=== PATIENT | female | born 1945 | race Two or more races ===

== ENCOUNTER → 2017-01-25 | Outpatient (CLI) | payer OTHER | LOC: BHFA 11:00 | PROVIDERS: ATTEND Internal Medicine | DX: I10 Essential (primary) hypertension (principal) ==

== ENCOUNTER → 2017-02-17 | Outpatient (CLI) | payer OTHER | LOC: BHFA 09:15 | PROVIDERS: ATTEND Internal Medicine Cardiovascular Disease | DX: I42.9 Cardiomyopathy, unspecified (principal) ==

== ENCOUNTER 2017-04-08 17:12 | Inpatient (IN) | payer OTHER ==
--- NOTE | 2017-04-08 17:33 | CPEKG ---
Heart Rate: 71 RR Interval: 845 P-R Interval: 180 QRSD Interval: 90 QT Interval: 456 QTC Interval: 496 P [place]: 38 QRS [place]: 14 T Wave [place]: 75 EKG Severity - ABNORMAL ECG - EKG Impression: SINUS RHYTHM EKG Impression: ATRIAL PREMATURE COMPLEX EKG Impression: PROBABLE LEFT ATRIAL ABNORMALITY EKG Impression: LVH WITH SECONDARY REPOLARIZATION ABNORMALITY EKG Impression: BORDERLINE PROLONGED QT INTERVAL Electronically Signed By: Roman Vazquez 08-Apr-2017 23:01:21
--- NOTE | 2017-04-08 17:44 | EDPHY ---
H & P Stated Complaint: cp/fast hr sent from pc in private vehicle Source: Patient, Family, Director Emergency Exam Limitations: No limitations - Personal History Current Tetanus/Diphtheria Vaccine: Yes - Medical/Surgical History Hx Asthma: No Hx Chronic Respiratory Disease: No Hx Diabetes: Yes Hx Cardiac Disease: Yes Hx Renal Disease: No Hx Cirrhosis: No Hx Alcoholism: No Hx HIV/AIDS: No Hx Splenectomy or Spleen Trauma: No Other PMH: tachycardia/htn - Social History Smoking Status: Never smoked HPI/ROS: CHIEF COMPLAINT: Chest Pain HISTORY OF PRESENT ILLNESS: Patient complains of chest pain or shortness of breath. Also associated with intermittent palpitations. This started early last night. It has been mostly constant she says. It does wax and wane from mild to moderate. Worse when supine. Improved when sitting up. No change when walking slowly. She has not exerted herself P on this. It does not radiate. There is no nausea, vomiting or diaphoresis. No abdominal pain. No cough. Most comfortable position is sitting up and leaning forward. No fever or chills. No recent illness. She was seen by jewelry mold maker Dr. Hudson on Tuesday where they did not change anything, nor was she having any chest pain at that time. No recent travel or surgery. No history of venous thrombolic event. No lower extremity erythema edema or pain. No other associated complaints or modifying factors. All information obtained with the use of the [facility] [employer] foreign language teacher (Ashley). PRIOR CARDIAC WORKUP: Stress test 2010 which revealed aortic stenosis and normal coronaries. REVIEW OF SYSTEMS: Ten systems reviewed and are negative unless otherwise noted in the HPI EXAMINATION: General Appearance: Alert, no distress Head: normocephalic, atraumatic Eyes: Pupils equal and round, no conjunctival pallor or injection ENT, Mouth: Mucous membranes moist uvula midline. Neck: Normal inspection, supple, non-tender Respiratory: Mild crackles at the base. No wheezing. No diminishment. No retractions or distress Cardiovascular: Regular rate and rhythm. Harsh holosystolic murmur. Pulses intact distally. Gastrointestinal: Abdomen is soft and nontender Back: non-tender, no bony abnormalities Neurological: GCS 15. A&O, nonfocal, normal gait. Strength symmetric in all 4 limbs. Skin: Warm and dry, no rash Extremities: Nontender, no pedal edema. No evidence of DVT. Psychiatric: Mood and affect normal DIFFERENTIAL DIAGNOSES: Including but not limited to in no particular order: Acute Chest Pain, ACS, Stable Angina, Pneumonia, PE, duodenitis, gastritis, esophagitis, GERD MDM: 5:43 p.m. Chest pain that started last night. It has been intermittently present. Vital signs are stable. EKG shows sinus rhythm with PACs, LVH and borderline prolonged QT. Minimal chest pain at this time prepped laboratory studies and chest x-ray are pending at this time. 6:20 p.m. D-dimer is elevated thus I have ordered CT angio of the chest. BNP is elevated I do not have a comparison for her. Plan for admission after CT scan of the chest and troponin returned EKG: Interpreted by Dr. Vazquez Sinus rhythm with PACs, LVH and borderline prolonged QT. No acute ischemia SUPERVISION: (Gary Burns) Constitutional: Initial Vital Signs Temperature (C) 37 C 04/08/17 17:18 Heart Rate 74 04/08/17 17:18 Respiratory Rate 20 04/08/17 17:18 Blood Pressure 182/77 H 04/08/17 17:18 O2 Sat (%) 94 04/08/17 17:18 O2 Delivery Mode Room Air Allergies/Adverse Reactions: No Known Allergies Allergy (Verified 04/08/17 17:16) Home Medications: Medication Instructions Recorded Aspirin EC [Aspirin EC 81 mg (*)] 81 mg PO DAILY 04/08/17 [place]/Supplements -Info Only 1 ea PO DAILY 04/08/17 Ibuprofen [Advil] 200 mg PO DAILY PRN 04/08/17 Metoprolol Succinate 150 mg PO DAILY 04/08/17 [place]-3 Ethyl Est-Lovaza [Lovaza 1 2 gm PO BID 04/08/17 gm (*)] Simvastatin 20 mg PO DAILY 04/08/17 Verapamil HCl [Verapamil ER] 240 mg PO DAILY 04/08/17 Medical Decision Making - Diagnostics EKG Interpretation: 12-lead EKG interpreted by me; official reading is in trace master. My interpretation is sinus rhythm rate 71, atrial premature complex, LVH, left atrial abnormality. (Roman Vazquez) Imaging Results: Imaging Impressions Chest/Thorax CTA 04/08/17 18:23 Impression: Inconclusive exam for pulmonary embolic disease, due to patient motion. 2. LAD coronary artery disease. 3. Suspicious for IHSS. Results called and discussed with Gary Burns, at 04/08/2017 7:25 pm General information for patients regarding this examination can be found at [email or web address]. If you have questions or comments about this report, please contact me at (hospital) or [phone] (cell). Other Provider: Discussed and reviewed case with PA; agree with plan for admission, trend troponins, manufacturing inspector. I am the secondary supervising physician. (Roman Vazquez) - Data Points Laboratory Results: Laboratory Results 04/08/17 17:38 04/08/17 17:38 Departure - Departure Disposition: [facility] Inpatient Acute Clinical Impression: Acute chest pain Condition: Good
[2017-04-08 17:54] LABS: % IMMATURE GRANULYOCYTES 0.3 % (0.0-1.1); ABSOLUTE IMMATURE GRANULOCYTES 0.02 10^3/uL (0.00-0.10); ADD DIFF? NO; ADD MORPH? NO; ADD SCAN? NO; ATYPICAL LYMPHOCYTE FLAG 10 (0-99); FRAGMENT RBC FLAG 0 (0-99); HEMATOCRIT 44.3 % (38.0-47.0); HEMOGLOBIN 15.3 g/dL (12.6-16.3); LEFT SHIFT FLG 0 (0-99); LIPEMIA HEMOLYSIS FLAG 90 (0-99); MEAN CELL HEMOGLOBIN 29.4 pg (27.9-34.1); MEAN CELL HEMOGLOBIN CONCENTR. 34.5 g/dL (32.4-36.7); MEAN CELL VOLUME 85.2 fL (81.5-99.8); MEAN PLATELET VOLUME 11.1 fL (8.7-11.7); PLATELET CLUMPS FLAG 0 (0-99); PLATELET COUNT 214 10^3/uL (150-400); RED CELL DISTRIBUTION WIDTH 14.6 % (11.5-15.2)
[2017-04-08 18:02] LABS: INR 1.04 (0.83-1.16); PROTIME(PATIENT) 13.5 SEC (12.0-15.0)
[2017-04-08 18:03] LABS: APTT 33.1 SEC (23.0-38.0)
[2017-04-08 18:07] LABS: ANION GAP 11 mEq/L (8-16); CALCIUM 9.6 mg/dL (8.5-10.4); CARBON DIOXIDE 24 mEq/l (22-31); CHLORIDE 106 mEq/L (97-110); CREATININE 0.6 mg/dL (0.6-1.0); GLOMERULAR FILTRATION RATE > 60; GLUCOSE 146 mg/dL (70-100); POTASSIUM 4.1 mEq/L (3.5-5.2); SODIUM 141 mEq/L (134-144)
[2017-04-08 18:18] LABS: TROPONIN I 0.016 ng/mL (0-0.034)
[2017-04-08] MEDS ORDERED: IOPAMIDOL (ISOVUE 370) 100 ML BTL IV ONE (18:43)
[2017-04-08] MEDS ORDERED: oxyCODONE IR 5 MG TAB PO PRN (23:22)
[2017-04-08] MEDS ORDERED: ACETAMINOPHEN 325 MG TAB PO PRN (23:22)
[2017-04-08] MEDS ORDERED: ONDANSETRON DISINTEGRATING 4 MG TAB PO PRN (23:22)
[2017-04-08] MEDS ORDERED: ONDANSETRON 4 MG/2 ML VIAL IVP PRN (23:22)
[2017-04-08] MEDS ORDERED: hydrALAZINE 20 MG/ML VIAL IVP PRN (23:24)
--- NOTE | 2017-04-09 00:24 | PDGENHP ---
History and Physical - Chief Complaint chest pain - History of Present Illness 71 yo F with PMH of VHD (severe , moderate MR) as well as HOCM presenting with chest pain. She notes that this most recent episode began last night while she was doing housework. It was substernal and severe, associated with SOB, and improved with rest. It returned again this morning and was worse than last night. She has had similar chest pain in the past, and previously had a heart cath that showed no significant CAD at that time in 2010. She thinks she has been typically having episodes of chest pain about every two months, but previously not this severe and not lasting as long. She notes that she has been treated for tachycardia by Dr. Hudson, she is unable to give me much more details about that however and unfortunately no records found in [place] or [facility] either. She has not had other associated sxs such as dizzyness or near syncope, no fevers or chills, no swelling or pain in the legs. She has seen Dr. Hudson recently, but at that time she did not mention these issues and was not having chest pain then. History Information - Allergies/Home Medication List Allergies/Adverse Reactions: No Known Allergies Allergy (Verified 04/08/17 17:16) Home Medications: Aspirin EC [Aspirin EC 81 mg (*)] 81 mg PO DAILY 04/08/17 [Last Taken 04/07/17] [place]/Supplements -Info Only 1 ea PO DAILY 04/08/17 [Last Taken Unknown] Ibuprofen [Advil] 200 mg PO DAILY PRN 04/08/17 [Last Taken Unknown] Metoprolol Succinate 150 mg PO DAILY 04/08/17 [Last Taken 04/08/17] [place]-3 Ethyl Est-Lovaza [Lovaza 1 gm (*)] 2 gm PO BID 04/08/17 [Last Taken Unknown] Simvastatin 20 mg PO DAILY 04/08/17 [Last Taken Unknown] Verapamil HCl [Verapamil ER] 240 mg PO DAILY 04/08/17 [Last Taken 04/08/17] I have personally reviewed and updated: family history, medical history, social history, surgical history - Past Medical History cancer (breast), cataracts, diabetes type 2 (now off of medications/diet controlled), hypertension, hyperlipidemia Additional medical history: obstructive hypertrophic CM. 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 C section. cataract surgery - Family History Positive for: CAD (mother in her 90s ) - Social History Smoking Status: Never smoked Alcohol Use: None Drug Use: None Additional social history: , 5 children, 9 grandchildren, originally from [facility] Review of Systems ROS: 10pt was reviewed & negative except for what was stated in HPI & below Physical Exam Temp Pulse Resp BP Pulse Ox 36.7 C 66 18 171/61 H 94 04/08/17 23:55 04/08/17 23:55 04/08/17 23:55 04/08/17 23:55 04/08/17 23:55 Constitutional: no apparent distress, appears nourished, obese Eyes: PERRL Ears, Nose, Mouth, Throat: moist mucous membranes, hearing normal Cardiovascular: regular rate and rhythym, systolic murmur, No edema Respiratory: no respiratory distress, no rales or rhonchi Gastrointestinal: normoactive bowel sounds, soft, non-tender abdomen Genitourinary: no bladder tenderness Skin: warm, normal color Musculoskeletal: full muscle strength, no muscle tenderness Neurologic: AAOx3 Psychiatric: interacting appropriately, not anxious, not encephalopathic Lab Data & Imaging Review 04/08/17 17:38 04/08/17 17:38 WBC 6.72 10^3/uL (3.80-9.50) 04/08/17 17:38 RBC 5.20 10^6/uL (4.18-5.33) 04/08/17 17:38 Hgb 15.3 g/dL (12.6-16.3) 04/08/17 17:38 Hct 44.3 % (38.0-47.0) 04/08/17 17:38 MCV 85.2 fL (81.5-99.8) 04/08/17 17:38 MCH 29.4 pg (27.9-34.1) 04/08/17 17:38 MCHC 34.5 g/dL (32.4-36.7) 04/08/17 17:38 RDW 14.6 % (11.5-15.2) 04/08/17 17:38 Plt Count 214 10^3/uL (150-400) 04/08/17 17:38 MPV 11.1 fL (8.7-11.7) 04/08/17 17:38 Neut % (Auto) 57.1 % (39.3-74.2) 04/08/17 17:38 Lymph % (Auto) 30.8 % (15.0-45.0) 04/08/17 17:38 [place] % (Auto) 9.2 % (4.5-13.0) 04/08/17 17:38 Eos % (Auto) 2.2 % (0.6-7.6) 04/08/17 17:38 Baso % (Auto) 0.4 % (0.3-1.7) 04/08/17 17:38 Nucleat RBC Rel Count 0.0 % (0.0-0.2) 04/08/17 17:38 Absolute Neuts (auto) 3.83 10^3/uL (1.70-6.50) 04/08/17 17:38 Absolute Lymphs (auto) 2.07 10^3/uL (1.00-3.00) 04/08/17 17:38 Absolute Monos (auto) 0.62 10^3/uL (0.30-0.80) 04/08/17 17:38 Absolute Eos (auto) 0.15 10^3/uL (0.03-0.40) 04/08/17 17:38 Absolute Basos (auto) 0.03 10^3/uL (0.02-0.10) 04/08/17 17:38 Absolute Nucleated RBC 0.00 10^3/uL (0-0.01) 04/08/17 17:38 Immature Gran % 0.3 % (0.0-1.1) 04/08/17 17:38 Immature Gran # 0.02 10^3/uL (0.00-0.10) 04/08/17 17:38 PT 13.5 SEC (12.0-15.0) 04/08/17 17:38 INR 1.04 (0.83-1.16) 04/08/17 17:38 APTT 33.1 SEC (23.0-38.0) 04/08/17 17:38 D-Dimer 1.18 ug/mLFEU (0.00-0.50) H 04/08/17 17:38 Sodium 141 mEq/L (134-144) 04/08/17 17:38 Potassium 4.1 mEq/L (3.5-5.2) 04/08/17 17:38 Chloride 106 mEq/L (97-110) 04/08/17 17:38 Carbon Dioxide 24 mEq/l (22-31) 04/08/17 17:38 Anion Gap 11 mEq/L (8-16) 04/08/17 17:38 BUN 20 mg/dL (7-23) 04/08/17 17:38 Creatinine 0.6 mg/dL (0.6-1.0) 04/08/17 17:38 Estimated GFR > 60 04/08/17 17:38 Glucose 146 mg/dL (70-100) H 04/08/17 17:38 Calcium 9.6 mg/dL (8.5-10.4) 04/08/17 17:38 Troponin I 0.016 ng/mL (0-0.034) 04/08/17 17:38 NT-Pro-B Natriuret Pep 1070 pg/mL (0-125) H 04/08/17 17:38 Lipase 158.0 IU/L (23-300) 04/08/17 17:38 Visualized and Interpreted Chest x-ray results: Yes Chest X-Ray results: other (airways disease, mild CM) Visualized and Interpreted imaging results: Yes Interpretation: CTA: no obvious PE--study limited by motion artifact. -- asymmetrical thickening of interventricular septum Visualized and Interpreted EKG results: Yes EKG additional interpertation: LVH with secondary repol abnormality--no old to compare Assessment & Plan Assessment: Acute chest pain (Acute) Aortic stenosis (Acute) 71 yo F with PMH of HOCM, severe subvalvular presenting with cp/sob/thomas # chest pain: patient given a history of increasing exertional chest pain concerning for unstable angina. Had similar sxs in the past and angio w/o significant CAD. ECG abnormal, but not clearly ischemic with underlying LVH. Will trend ecg/trops. Consult cardiology. Echo and stress test ordered for am, but would defer to cardiology if heart catheterization preferable to stress test given her hx. At this time, chest pain free. CTA limited study but no clear PE. # sob/thomas: with mild hypoxia, 91% on RA, and hx of HOCM as well as severe / mod MR. Does not appear grossly overloaded on exam. Echo ordered for am. # uncontrolled HTN: patient notes that bp has been running high at home as well , but states typically more in the 150s systolic range, will add prn hydralazine and trend. continue home medications of verapamil and metoprolol. # DM2: per patient she has been recently taken off of meds as now diet controlled, no recent A1c in our system and will order, last was 6.5 # severe /HOCM: as above, echo in am, cardiology consult # dispo: observation status, will likely need < 48 hours stay for eval/mgmt of above Patient new to my care. Old records reviewed and summarized as above. Further hx obtained from patients and grand daughter present at bedside. Care plan reviewed with ER doctor.
[2017-04-09 01:01] LABS: CHOLESTEROL 183 mg/dL (140-220); CHOLESTEROL/HDL RATIO 4.69 RATIO (1.00-4.44); HIGH DENSITY LIPOPROTEIN 39 mg/dL (40-85); LDL/HDL RATIO 2.77 RATIO (1.00-3.22); LOW DENSITY LIPOPROTEIN 108 mg/dL (80-100); NON-HIGH DENSITY LIPOPROTEIN 144 mg/dL (90-129); TRIGLYCERIDE 184 mg/dL (35-135); VERY LOW DENSITY LIPOPROTEINS 36 mg/dL (8-25)
[2017-04-09 01:12] LABS: TROPONIN I 0.115 ng/mL (0-0.034)
[2017-04-09] MEDS: ENOXAPARIN 80 MG/0.8 ML SYR SC SCH ×3 (02:50→21:53)
[2017-04-09] MEDS: METOPROLOL TARTRATE 100 MG TAB PO SCH ×2 (03:14→09:11)
[2017-04-09] MEDS ORDERED: METOPROLOL SUCCINATE XR 50 MG TAB PO SCH (09:00)
[2017-04-09] MEDS: ATORVASTATIN CALCIUM 10 MG TAB PO SCH (09:09)
[2017-04-09] MEDS: ASPIRIN EC 81 MG TAB PO SCH (09:09)
[2017-04-09] MEDS: VERAPAMIL ER 240 MG TAB PO SCH (09:09)
[2017-04-09] MEDS: OMEGA-3 ETHYL EST-LOVAZA 1 GM CAP PO SCH ×2 (09:13→21:51)
--- NOTE | 2017-04-09 10:14 | ECHO ---
[id number] + + [address] : : [place] [address] : : [phone] + + Adult Echocardiographic Report + -------+ :Name: MARIANNE RAMOS FStudy Date: 04/09/2017 08:07 AM : : Hospital Admission Number: [id number] Locati on: 208: :: 1945 Gender: Female Height: 62 in : :Age: 71 yrs Race: HL,PTNP,OTH Weight: 167 lb : :Reason For Study: Chest pain : : BSA: 1.8 meter s2 : :History: Cardiomyopathy : + -------+ MMode/2D Measurements \T\ Calculations IVSd: 1.7 cm LVIDd: 4.4 cm EDV(Teich): 89.3 ml Ao root diam: 2.6 cm LVPWd: 1.6 cm LA dimension: 5.0 cm Normal Measurement Values: + + :LVIDd (3.5-5.7cm) IVSd (0.6-1.1cm) LVPWd (0.6-1.1cm) Aortic Root (2.0-3.7cm)Left Atrium (1.5-4.0cm): :LV Vol(d) (76-115ml) LV Vol(s) (29-48ml) Ejec Fraction (50-65%)PV Brodie (0.6- 1.2m/s) TV Brodie (0.4-1.0m/s) : :MV E Brodie (0.8-1.0m/s)MV A Brodie (0.3-1.0m/s)LVOT Bro[place] (0.7-1.2m/s) Asc Ao Brodie ( 0.9-1.8m/s) : + + Doppler Measurements \T\ Calculations MV E max brodie: 90.5 cm/sec MV A max brodie: 116.5 cm/sec MV E/A: 0.78 Left Ventricle The left ventricle is normal in size. There is moderate to severe concentric left ventricular hypertrophy. Left ventricular systolic function is normal. There is Doppler evidence for diastolic dysfunction. Ejection Fraction = 70- 75%. No regional wall motion abnormalities noted. Right Ventricle The right ventricle is normal in size and function. Atria The left atrium is moderately dilated. Right atrial size is normal. Mitral Valve There is systolic anterior motion of the mitral valve. Severe LVOT gradient (103-196). There is no evidence of mitral valve prolapse. There is no mitral valve stenosis. There is mild mitral regurgitation. Tricuspid Valve Normal tricuspid valve. No tricuspid regurgitation. Aortic Valve The aortic valve opens well. There is mild aortic valve calcification. The aortic valve is trileaflet. There is no aortic stenosis. There is no aortic insufficiency. Pulmonic Valve The pulmonic valve is not well visualized. There is no pulmonic valvular regurgitation. Great Vessels The aortic root is normal size. Pericardium/Pleural There is no pericardial effusion. Conclusion A complete two-dimensional transthoracic echocardiogram was performed (2D, M-mode, Doppler and color flow Doppler). Previous echo 02/11 at [facility]. (1) Left ventricular systolic ejection fraction was normal (70%) - grossly normal wall motion (2) Moderate to severe left ventricular hypertrophy (3) Diastolic dysfunction was noted (4) Normal right ventricular size and function (5) Moderate left atrial dilation with normal right atrial dimensions (6) Mild mitral regurgitation (7) Trileaflet aortic valve with mild sclerosis, no stenosis, and no appreciable insufficiency (8) Grossly normal tricuspid valve (9) Poor visualization of the pulmonic valve (10) LVOT gradient was severe (up to 196 mm Hg). (11) In comparison to prior echocardiogram from 2010, the gradients have increased. Final Reading Physician: Jayjay Ellsworth signed on 04/09/2017 10:12 AM Ordering Physician: Kiana Luong Performed By: Mirian Christine RDCS
--- NOTE | 2017-04-09 11:09 | PDCARPN ---
Cardiology Progress Note Chief Complaint: chest pains Assessment/Plan: Assessment: Patient is a 71 y/o female, well known to [facility] (Dr. Esther Hudson and Dr. Igor Pleitez) with history of HOCM , DM, HTN, and HLP, who presented to [facility] with complaints of chest pains. Outpatient follow up with Dr. Igor Pleitez led to cessation of therapy on diuretics and uptitration of beta raphael therapy. Follow up with Dr. Esther Hudson about one month post med changes with patient reporting that she had been feeling very well. Compliance with these changes has been maintained. No syncope has been noted. No PND or orthopnea. Friend ( neighbor) was present in the room today to assist with translation (certified school manager with medical background). The question/statement that came up was a moderate degree of anxiety about pending travel to [place] was noted, and elevation in blood pressures might have precipitated some of the symptoms ( versus anxiety in general resulting in the symptoms noted). Either way, the patient is currently doing very well, and without active symptoms reported. Echocardiogram this morning with continued, progressive elevation to the LVOT gradients. Plan: (1) Would maintain current therapies with Lopressor at 100 mg twice per day and Calan SR at 240 mg per day (2) Statins to continue for history of HLP (3) ASA therapy to continue as at present (4) Would consider the addition of Ranexa 500 mg twice per day (as per the RHYME study with refractory symptoms in the setting of maximal therapy) (5) Would also arrange for outpatient follow up for further discussion about surgical options given the LVOT gradients noted today in house (6) Diuretics should be avoided given the diagnosis rendered (and the gradients appreciated) Subjective: No cardiovascular complaints were voiced today. Reviewed/Discussed With: family Time Spent With Patient: 20 minutes Objective: Vital Signs (8 Hrs) Temp Pulse Resp BP Pulse Ox 04/09/17 08:00 36.8 C 76 17 164/69 H 95 04/09/17 06:00 174/69 H 04/09/17 03:51 36.6 C 67 19 184/66 H 95 04/09/17 03:14 52 L Intake/Output (24 Hrs) 04/08/17 04/09/17 04/10/17 05:59 05:59 05:59 Other: Weight 75.9 kg Number of Voids Toilet 1 Result Diagrams: 04/08/17 17:38 04/08/17 17:38 Cardiac Labs: Cardiac Lab Results (72 Hrs) 04/09/17 04/08/17 03:46 23:47 Troponin I 0.191 H 0.115 H Telemetry: sinus rhythm with non specific ST/T wave changes noted Echocardiogram: normal LVEF was noted with ongoing, progressive LVH (HOCM). Gradients (at peak ) to nearly 200 mm Hg. - Physical Exam Constitutional: WDWN, healthy appearing, no apparent distress Eyes: PERRL, EOMI Ears, Nose, Mouth, Throat: moist mucous membranes Cardiovascular: regular rate and rhythm, no rubs, no gallops, systolic murmur Peripheral Pulses: 2+: dorsalis-pedis (R), dorsalis-pedis (L) Respiratory: clear to auscultate bilat, no crackles, no wheezes Gastrointestinal: normoactive bowel sounds Skin: no rashes, no edema Musculoskeletal: no muscular tenderness Neurologic: AAOx3, CN II-XII grossly intact Psychiatric: cooperative, interactive, following commands ICD10 Worksheet Patient Problems: Problems Problem Status Onset Acute chest pain Acute
--- NOTE | 2017-04-09 13:21 | HOSPPROG ---
Hospitalist Progress Note Assessment/Plan: 71-y/o F with long-standing HCM, normal cors on [facility] 2010, DANNY with MR, known LVOT gradient, mod LVH, in with cp. Previously has had similar episodes since 2010,but has worsening episodes in past 2 months. #. elevated troponin: cardiology has seen and feels it is related to worsening HCM and LVOT gradient no cp currently continue ASA and statin for med mgmt #. HCM: mod-severe LVH by echo today will resume home dosing of Metoprolol succinate add Ranexa per Dr. Cantrell's recommendations we reviewed need to follow up with Dr. Pleitez/Tristan to discuss myectomy as LVOT gradient now up to 196 mmHg #. cp: related to above #. DM: previously treated with Glyburide but that was stopped recently due to improved glycemic control #. Dispo: possible d/c in AM if BP controlled and no further cp Subjective: No cp. No dyspnea or abdominal pain. Objective: Vital Signs Temp Pulse Resp BP Pulse Ox 98.1 F 62 20 152/60 H 94 04/09/17 11:26 04/09/17 11:26 04/09/17 11:26 04/09/17 11:26 04/09/17 11:26 PT 13.5 SEC (12.0-15.0) 04/08/17 17:38 INR 1.04 (0.83-1.16) 04/08/17 17:38 - Physical Exam Constitutional: no apparent distress, appears nourished Eyes: anicteric sclera Ears, Nose, Mouth, Throat: moist mucous membranes, hearing normal Cardiovascular: regular rate and rhythym, no murmur, rub, or gallop Respiratory: no respiratory distress, no rales or rhonchi Gastrointestinal: normoactive bowel sounds, soft, non-tender abdomen Skin: warm, normal color Neurologic: AAOx3 Psychiatric: interacting appropriately, not anxious, other (SSO with engine buildup mechanic present) ICD10 Worksheet Patient Problems: Problems Problem Status Onset Acute chest pain Acute
[2017-04-09] MEDS: METOPROLOL SUCCINATE XR 50 MG TAB PO SCH ×2 (16:13→21:52)
[2017-04-09] MEDS: RANOLAZINE 500 MG TAB.ER PO SCH (21:50)
[2017-04-10 08:01] VITALS: BP 153/65; PULSE 60; RESP 18; TEMP 98.4; O2SAT 94
[2017-04-10] MEDS: OMEGA-3 ETHYL EST-LOVAZA 1 GM CAP PO SCH (08:55)
[2017-04-10] MEDS: VERAPAMIL ER 240 MG TAB PO SCH (08:55)
[2017-04-10] MEDS: RANOLAZINE 500 MG TAB.ER PO SCH (08:55)
[2017-04-10] MEDS: ASPIRIN EC 81 MG TAB PO SCH (08:56)
[2017-04-10] MEDS: ENOXAPARIN 80 MG/0.8 ML SYR SC SCH (08:56)
[2017-04-10] MEDS: ATORVASTATIN CALCIUM 10 MG TAB PO SCH (08:56)
[2017-04-10] MEDS: METOPROLOL SUCCINATE XR 50 MG TAB PO SCH (08:56)
--- NOTE | 2017-04-10 10:14 | PDCARPN ---
Cardiology Progress Note Chief Complaint: No complaints Assessment/Plan: Assessment: 04-10-17 Patient without cardiovascular complaints. No chest pains have been noted, and blood pressures are better controlled today. Ranexa was started (500 mg twice per day) last night, and to date has been tolerated well (only two doses rendered). Patient is dressed and ready to leave - she was told that she might be going home this morning. 04-09-17 Patient is a 71 y/o female, well known to [facility] (Dr. Esther Hudson and Dr. Igor Pleitez) with history of HOCM , DM, HTN, and HLP, who presented to [facility] with complaints of chest pains. Outpatient follow up with Dr. Igor Pleitez led to cessation of therapy on diuretics and uptitration of beta raphael therapy. Follow up with Dr. Esther Hudson about one month post med changes with patient reporting that she had been feeling very well. Compliance with these changes has been maintained. No syncope has been noted. No PND or orthopnea. Friend ( neighbor) was present in the room today to assist with translation (certified house wirer with medical background). The question/statement that came up was a moderate degree of anxiety about pending travel to [place] was noted, and elevation in blood pressures might have precipitated some of the symptoms ( versus anxiety in general resulting in the symptoms noted). Either way, the patient is currently doing very well, and without active symptoms reported. Echocardiogram this morning with continued, progressive elevation to the LVOT gradients. Plan: (1) Toprol XL at 150 mg per day to continue (2) Calan SR at 240 mg per day to control (3) Maintain newly added Ranexa (500 mg twice per day) with history of HOCM with max dose therapies of Toprol and Calan (4) ASA therapy should be continued (5) Outpatient follow up has been arranged, but is too long in the future with the ongoing symptoms - will communicate with [facility] in the morning to get this patient in for follow up this week (prefer Mon/) Subjective: No cardiovascular complaints Objective: Vital Signs (8 Hrs) Temp Pulse Resp BP Pulse Ox 04/10/17 08:00 36.9 C 60 18 153/65 H 94 04/10/17 04:00 36.7 C 66 14 150/70 H 96 Intake/Output (24 Hrs) 04/09/17 04/10/17 04/11/17 05:59 05:59 05:59 Intake Total 1240 Balance 1240 Intake: Oral (ml) 1240 Other: Number of Voids Toilet 2 Number of Stools Toilet 1 Result Diagrams: 04/08/17 17:38 04/08/17 17:38 Telemetry: patient is off tele this morning - Physical Exam Constitutional: WDWN, healthy appearing Eyes: PERRL Ears, Nose, Mouth, Throat: moist mucous membranes Cardiovascular: regular rate and rhythm, systolic murmur, No jugular vein distention Peripheral Pulses: 2+: dorsalis-pedis (R), dorsalis-pedis (L) Respiratory: clear to auscultate bilat, no crackles, no wheezes Gastrointestinal: normoactive bowel sounds Skin: no rashes, no edema Musculoskeletal: no muscular tenderness Neurologic: AAOx3, CN II-XII grossly intact Psychiatric: cooperative, interactive, following commands ICD10 Worksheet Patient Problems: Problems Problem Status Onset Acute chest pain Acute
[2017-04-11 01:44] LABS: HEMOGLOBIN A1C 6.6 % (4.0-6.0)
== END 2017-04-10 10:40 | disposition home or self-care (01) | DRG 313 ==
LOC: F2W 20:33 → OBSVTOIN 04-09 13:30
PROVIDERS: ADMIT Internal Medicine; ATTEND Internal Medicine
DX: R07.9 Chest pain, unspecified (principal); E11.9 Type 2 diabetes mellitus without complications; I10 Essential (primary) hypertension; E78.5 Hyperlipidemia, unspecified; Z82.49 Family history of ischemic heart disease and other diseases of the circulatory system; Z85.3 Personal history of malignant neoplasm of breast
CPT/HCPCS: G0378; J0360; J1650; Q9967

== ENCOUNTER 2017-04-26 11:37 | Observation (INO) | payer OTHER ==
[2017-04-26] MEDS ORDERED: ASPIRIN EC 325 MG TAB PO ONE ×2 (11:41→12:09)
[2017-04-26] MEDS ORDERED: diphenhydrAMINE 25 MG CAP PO ONE ×2 (11:41→12:09)
[2017-04-26] MEDS ORDERED: NS 1,000 ML IV ONE (11:41)
[2017-04-26] MEDS ORDERED: DIAZEPAM 5 MG TAB PO ONE (11:41)
[2017-04-26] MEDS ORDERED: FAMOTIDINE 20 MG TAB PO ONE (11:41)
--- NOTE | 2017-04-26 12:06 | CPEKG ---
Heart Rate: 65 RR Interval: 923 P-R Interval: 180 QRSD Interval: 88 QT Interval: 440 QTC Interval: 458 P [place]: 46 QRS [place]: 13 T Wave [place]: 25 EKG Severity - ABNORMAL ECG - EKG Impression: SINUS RHYTHM EKG Impression: LVH WITH SECONDARY REPOLARIZATION ABNORMALITY Electronically Signed By: Lauri Cantrell 28-Apr-2017 12:41:21
[2017-04-26] MEDS ORDERED: DIAZEPAM 5 MG TAB ONE (12:09)
[2017-04-26] MEDS ORDERED: FAMOTIDINE 20 MG TAB ONE (12:09)
[2017-04-26 12:40] LABS: % IMMATURE GRANULYOCYTES 0.1 % (0.0-1.1); ABSOLUTE IMMATURE GRANULOCYTES 0.01 10^3/uL (0.00-0.10); ADD DIFF? NO; ADD MORPH? NO; ADD SCAN? NO; ATYPICAL LYMPHOCYTE FLAG 0 (0-99); FRAGMENT RBC FLAG 0 (0-99); HEMATOCRIT 43.4 % (38.0-47.0); HEMOGLOBIN 14.9 g/dL (12.6-16.3); LEFT SHIFT FLG 0 (0-99); LIPEMIA HEMOLYSIS FLAG 90 (0-99); MEAN CELL HEMOGLOBIN CONCENTR. 34.3 g/dL (32.4-36.7); MEAN CELL VOLUME 87.3 fL (81.5-99.8); MEAN PLATELET VOLUME 10.4 fL (8.7-11.7); PLATELET CLUMPS FLAG 0 (0-99); PLATELET COUNT 199 10^3/uL (150-400); RED BLOOD CELL COUNT 4.97 10^6/uL (4.18-5.33); RED CELL DISTRIBUTION WIDTH 14.6 % (11.5-15.2)
[2017-04-26 12:51] LABS: INR 1.09 (0.83-1.16)
[2017-04-26 12:54] LABS: ALANINE AMINOTRANSFERASE 72 IU/L (9-52); ALBUMIN 4.7 g/dL (3.5-5.0); ALKALINE PHOSPHATASE 71 IU/L (38-126); ANION GAP 12 mEq/L (8-16); ASPARTATE AMINOTRANSFERASE 45 IU/L (14-46); BILIRUBIN,TOTAL 0.9 mg/dL (0.1-1.4); CALCIUM 9.2 mg/dL (8.5-10.4); CARBON DIOXIDE 23 mEq/l (22-31); CHLORIDE 108 mEq/L (97-110); CHOLESTEROL 130 mg/dL (140-220); CHOLESTEROL/HDL RATIO 2.28 RATIO (1.00-4.44); CREATININE 0.7 mg/dL (0.6-1.0); GLOMERULAR FILTRATION RATE > 60; GLUCOSE 101 mg/dL (70-100); HIGH DENSITY LIPOPROTEIN 57 mg/dL (40-85); LDL/HDL RATIO 0.91 RATIO (1.00-3.22); LOW DENSITY LIPOPROTEIN 52 mg/dL (80-100); MAGNESIUM 1.9 mg/dL (1.6-2.3); NON-HIGH DENSITY LIPOPROTEIN 73 mg/dL (90-129); POTASSIUM 4.2 mEq/L (3.5-5.2); SODIUM 143 mEq/L (134-144); TOTAL PROTEIN 7.9 g/dL (6.3-8.2); TRIGLYCERIDE 109 mg/dL (35-135); VERY LOW DENSITY LIPOPROTEINS 21 mg/dL (8-25)
[2017-04-26] MEDS ORDERED: VERAPAMIL 5 MG/2 ML VIAL ONE (13:13)
[2017-04-26] MEDS ORDERED: LIDOCAINE 1% 300 MG/30 ML SDV ONE (13:13)
[2017-04-26] MEDS ORDERED: MIDAZOLAM 2 MG/2 ML VIAL ONE (13:13)
[2017-04-26] MEDS ORDERED: HEPARIN 10,000 UNIT/10 ML MDV ONE (13:13)
[2017-04-26] MEDS ORDERED: fentaNYL 100 MCG/2 ML INJ ONE (13:13)
[2017-04-26] MEDS ORDERED: IOPAMIDOL (ISOVUE-370) 150 ML BTL IV ONE (13:14)
[2017-04-26] MEDS ORDERED: METOPROLOL TARTRATE 5 MG/5 ML INJ ONE ×3 (14:48→14:59)
[2017-04-26] MEDS ORDERED: ATROPINE SULFATE 1 MG/10 ML SYR IVP PRN (15:14)
[2017-04-26] MEDS ORDERED: HYDROCODONE/APAP 5/325 TAB PO PRN (15:14)
[2017-04-26] MEDS ORDERED: NITROGLYCERIN 0.4 MG BTL SL PRN (15:14)
[2017-04-26] MEDS ORDERED: OXYCODONE/APAP 5/325 TAB PO PRN (15:14)
[2017-04-26] MEDS ORDERED: ONDANSETRON 4 MG/2 ML VIAL IVP PRN (15:14)
--- NOTE | 2017-04-26 15:18 | PDDXCAT ---
Diagnostic Cath Note - . Date: 04/26/17 Wafer Cutter: Tristan Indication: Class I/II angina, intolerance to med therapy or failure to respond - Procedure Access: right groin Procedure: left heart catheterization, coronary angiography, left ventriculogram , right heart catheterization - Materials Left Heart Cath size: 5F Left Heart Cath materials: standard multipack (JL4, JR4, pigtail) Right Heart Cath size: 7F Right Heart Cath materials: PWP catheter - Findings-Left Heart Catheterization LM: Unobstructed LAD: Unobstructed LCX: Unobstructed RCA: Dominant: Unobstructed - Findings-Right Heart Catheterization RA: 10 mm of mercury RV: 38/mm of mercury PA: 40/15 mm of mercury PAOP: 15 mm of mercury AO: Outflow tract gradient of 110 mm of mercury. Complications: None Estimated blood loss: <50ml Closure method: manual pressure Assessment: Hypertrophic cardiomyopathy. Angiographically normal coronary arteries. Normal right heart pressures. Plan: Considerations for myectomy. Patient Problems: Problems Problem Status Onset Acute chest pain Acute
[2017-04-26] MEDS: VERAPAMIL ER 240 MG TAB PO SCH ×2 (19:30→23:45)
[2017-04-26] MEDS: METOPROLOL SUCCINATE XR 100 MG TAB PO SCH (22:32)
[2017-04-27 07:35] VITALS: RESP 19
[2017-04-27] MEDS: VERAPAMIL ER 240 MG TAB PO SCH ×2 (08:45→09:19)
[2017-04-27] MEDS ORDERED: ASPIRIN EC 81 MG TAB PO SCH (09:00)
[2017-04-27] MEDS ORDERED: SIMVASTATIN PO SCH (09:00)
--- NOTE | 2017-04-27 10:07 | PDDCSUM ---
Discharge Summary Discharge Summary: Admission date: 04/26/2017. Discharge date 04/27/2017. Admission diagnosis hypertrophic cardiomyopathy with obstruction presenting with angina and chronic diastolic heart failure. Discharge diagnosis hypertrophic cardiomyopathy with angiographically normal coronary arteries and over 130 mm gradient within the left ventricular cavity. Procedure performed during this hospitalization cardiac catheterization, right and left. Hospital course: Patient was admitted to the hospital electively for diagnostic right and left heart catheterization in preparation for surgical consultation for myectomy. This was performed from the right groin. Postprocedure complications include systemic hypertension requiring aggressive medical therapy. Overnight the patient had mild junctional rhythm that was asymptomatic. On the day of discharge blood pressure is 150/70 with a heart rate of 48. Chest was clear. Puncture site was healing well with mild ecchymosis. Cardiac exam revealed a 3/6 systolic murmur. Her abdomen was soft. Extremities reveal no edema. Patient will be referred to Dr. Vernon Adam for consideration for myectomy. She is discharged home in stable condition. Questions were answered with her and her .
[2017-04-27 12:58] VITALS: TEMP 97.8
[2017-04-27] MEDS: METOPROLOL SUCCINATE XR 100 MG TAB PO SCH (13:14)
[2017-04-27 15:24] VITALS: BP 94/58; PULSE 55; O2SAT 95
== END 2017-04-27 15:54 | disposition home or self-care (01) ==
LOC: FCATH 11:37 → F1N 17:33 → F2W 18:00
PROVIDERS: ADMIT Internal Medicine Interventional Cardiology; ATTEND Internal Medicine Interventional Cardiology
PROC: B2151ZZ Fluoroscopy of Left Heart using Low Osmolar Contrast (ICD-10-PCS; principal; 2017-04-26)
PROC: 4A023N8 Measurement of Cardiac Sampling and Pressure, Bilateral, Percutaneous Approach (ICD-10-PCS; principal; 2017-04-26)
PROC: B2111ZZ Fluoroscopy of Multiple Coronary Arteries using Low Osmolar Contrast (ICD-10-PCS; principal; 2017-04-26)
DX: I42.2 Other hypertrophic cardiomyopathy (principal); I25.119 Atherosclerotic heart disease of native coronary artery with unspecified angina pectoris; I50.32 Chronic diastolic (congestive) heart failure; I10 Essential (primary) hypertension; E11.9 Type 2 diabetes mellitus without complications; Z85.3 Personal history of malignant neoplasm of breast; I25.2 Old myocardial infarction
CPT/HCPCS: 93005; 93460; G0378; J0461; J1644; J2250; J3010; Q9967

== ENCOUNTER 2017-07-25 11:36 | Inpatient (IN) | payer OTHER ==
--- NOTE | 2017-07-24 21:28 | PDGENHP ---
<JanaJuan Su - Last Filed: 07/24/17 22:02> History and Physical - Chief Complaint HOCM, mitral DANNY, LVOT gradient up to 196 mmHg - History of Present Illness 71 y/o with severe HOCM, class II diastolic CHF and associated light-headedness , SOB, and diminished exertional abilities, here for elective septal myectomy. Pt last seen at [facility] on 06/14/17 after receiving a second opinion at [facility] where it was agreed that a surgical myectomy an appropriate option. History Information - Allergies/Home Medication List Allergies/Adverse Reactions: No Known Allergies Allergy (Verified 04/08/17 17:16) Home Medications: Aspirin EC [Aspirin EC 81 mg (*)] 81 mg PO DAILY 04/26/17 [Last Taken 07/24/17 09:00] Herbals/Supplements -Info Only 1 ea PO DAILY 04/26/17 [Last Taken 07/23/17] Metoprolol Succinate Xr [Toprol Xl 50 mg (*)] 50 mg PO BID 04/26/17 [Last Taken 07/24/17 02:00] Simvastatin 10 - 20 mg PO DAILY 04/26/17 [Last Taken 07/24/17 09:00] Verapamil ER [Calan SR/ER 240MG (*)] 240 mg PO DAILY 04/26/17 [Last Taken 09:00] Proair Hfa PRN 07/19/17 [Last Taken 07/18/17] I have personally reviewed and updated: family history, medical history, social history, surgical history - Past Medical History cancer (breast), cataracts, diabetes type 2 (HgbA1c 6.9), hypertension, hyperlipidemia Additional medical history: obstructive hypertrophic CM. 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 C section. cataract surgery - Family History Positive for: CAD (mother in her 90s ) - Social History Smoking Status: Never smoked Additional social history: , 5 children, 9 grandchildren, originally from [facility] Lab Data & Imaging Review WBC 7.37, Hgb 14.9, Hct 43.7, Plts 181 Na 143, K 4.3, Cl 106, CO2 22, BUN 13, Cr 0.7, BS 98 HgbA1c 6.9 Imaging Review: 07/13/17 Carotid US: B/L carotids arteries without significant plaque. All velocities normal. 04/26/17 LHC/RHC: LHC: LM: Unobstructed LAD: Unobstructed LCX: Unobstructed RCA: Dominant: Unobstructed RHC: RA: 10 mm of mercury RV: 38/mm of mercury PA: 40/15 mm of mercury AO: Outflow tract gradient of 110 mm of mercury. Assessment: Hypertrophic cardiomyopathy. Angiographically normal coronary arteries. Normal right heart pressures. 04/09/17 TTE: 1. LVEF 70% 2. Severe LVH 3. Diastolic dysfunction 4. Normal RV size 5. Moderate LA dilation 6. Mild MR 7. Severe LVOT gradient (up to 196 mm Hg) Visualized and Interpreted Chest x-ray results: Yes Chest X-Ray results: no infiltrate, other (minimal cardiomegaly ) Visualized and Interpreted EKG results: Yes EKG Interpretation: Positive for: LVH (04/26/17) Assessment & Plan Assessment: 71F with HOCM here for elective septal myectomy Plan: - All labs/imaging reviewed - Consents to be obtained this morning <Angela De La Paz - Last Filed: 07/25/17 13:16> History and Physical - History of Present Illness States that she remains able to complete routine ADLs without undue fatigue, presyncope or palpitations. 3 pillow orthopnea. No PND or edema. Review of Systems Constitutional: Reports: other (wt stable) Physical Exam Temp Pulse Resp BP Pulse Ox 37.2 C 55 L 20 209/64 H 93 07/25/17 12:53 07/25/17 12:53 07/25/17 12:53 07/25/17 12:53 07/25/17 12:53 Constitutional: no apparent distress Eyes: anicteric sclera Ears, Nose, Mouth, Throat: moist mucous membranes Cardiovascular: regular rate and rhythym, systolic murmur Peripheral Pulses: 2+: dorsalis-pedis (R), dorsalis-pedis (L) Respiratory: clear to auscultation Gastrointestinal: normoactive bowel sounds, soft, non-tender abdomen Skin: warm Musculoskeletal: other (symmetric tone) Lab Data & Imaging Review Chest X-Ray results: other
[~2017-07-25 11:36] MED LIST: ADENOSINE 6 MG/2 ML VIAL ONE; ALBUMIN 5% 250 ML BOTTLE IV ONE; AMINOCAPROIC ACID 5 GM/20 ML VIAL IV ONE; AMINOCAPROIC ACID 5 GM/20 ML VIAL ONE; AMIODARONE HCL 150 MG/3 ML VIAL ONE; CALCIUM CHLORIDE 1 GM/10 ML INJ ONE; CITRATE DEXTROSE SOLN 500 ML BAG MISC ONE; CITRATE DEXTROSE SOLN 500 ML BAG ONE; DOPamine/DEXTROSE/250 ML BAG IV ONE; HEPARIN 10,000 UNIT/10 ML MDV ONE; INSULIN REGULAR HUMAN 100 UNIT in NS 100 ML IV ONE; LIDOCAINE 2% 100 MG/5 ML SYR ONE; MAGNESIUM SULFATE 1 GM/2 ML VIAL ONE; MANNITOL 25% 12.5 GM/50 ML VIAL IV ONE; MILRINONE/DEXTROSE/100 ML BAG IV ONE; MUPIROCIN 2% 22 GM OINT NS ONE; NA BICARBONATE 50 MEQ/50 ML VIAL ONE; NOREPINEPHRINE BITARTRATE 16 MG in NS 250 ML IV ONE; NS 1,000 ML IV ONE; PHENYLEPHRINE HCL 50 MG in NS 250 ML IV ONE; POTASSIUM Cl (KCl) 20 MEQ/50 ML BAG IV ONE; PROTAMINE SULFATE 50 MG/5 ML VIAL IVP ONE; SODIUM BICARBONATE 20 MEQ, LIDOCAINE 1% 10 ML in NORMOSOL-R 1,000 ML MISC ONE; ceFAZolin 1 GM VIAL ONE; ceFAZolin 2 GM/DEXTROSE 100 ML IV ONE; methylPREDNISolone SOD SUCC 1 GM/8 ML VIAL ONE; niCARdipine/NACL 200 ML IV SCH; niCARdipine/NACL/200 ML BAG IV ONE
[2017-07-25] MEDS ORDERED: LIDOCAINE 1% 2 ML INJ ID PRN (12:13)
[2017-07-25] MEDS ORDERED: LR 1,000 ML IV ONE (12:13)
[2017-07-25] MEDS ORDERED: MIDAZOLAM 2 MG/2 ML VIAL ONE (13:08)
[2017-07-25] MEDS ORDERED: fentaNYL 100 MCG/2 ML INJ ONE ×3 (13:26→14:23)
[2017-07-25] MEDS ORDERED: PROPOFOL 200 MG/20 ML VIAL ONE ×3 (13:27→17:34)
[2017-07-25] MEDS ORDERED: D5W IV SCH (14:30)
[2017-07-25] MEDS ORDERED: ISOPROTERENOL HCL IV SCH (14:30)
[2017-07-25] MEDS ORDERED: NITROPRUSSIDE SODIUM 50 MG in D5W 250 ML IV ONE (15:00)
[2017-07-25] MEDS ORDERED: PHENYLEPHRINE HCL 50 MG in NS 250 ML IV SCH (15:00)
[2017-07-25] MEDS ORDERED: MINERAL OIL 10 ML VIAL ONE (16:40)
[2017-07-25] MEDS ORDERED: MAGNESIUM SULF 2 GM/WATER 50 ML BAG IV ONE (16:41)
[2017-07-25] MEDS ORDERED: ONDANSETRON 4 MG/2 ML VIAL IVP PRN (17:35)
[2017-07-25] MEDS ORDERED: MAGNESIUM SULF 2 GM/WATER 50 ML IV ONE (17:35)
[2017-07-25] MEDS ORDERED: MAGNESIUM HYDROXIDE 30 ML UDCUP PO PRN (17:35)
[2017-07-25] MEDS ORDERED: POLYETHYLENE GLYCOL 3350 17 GM PKT PO PRN (17:35)
[2017-07-25] MEDS ORDERED: ONDANSETRON DISINTEGRATING 4 MG TAB PO PRN (17:35)
[2017-07-25] MEDS ORDERED: PANTOPRAZOLE SODIUM 40 MG in NS 100 ML IV ONE (17:35)
[2017-07-25] MEDS ORDERED: D50W 25 GM/50 ML SYR IVP PRN (17:35)
[2017-07-25] MEDS ORDERED: ACETAMINOPHEN 325 MG TAB PO PRN (17:35)
[2017-07-25] MEDS ORDERED: ALBUMIN 5% 250 ML IV PRN (17:35)
[2017-07-25] MEDS ORDERED: LACTULOSE 20 GM/30 ML UDCUP PO PRN (17:35)
[2017-07-25] MEDS ORDERED: METOCLOPRAMIDE 10 MG/2 ML VIAL IVP PRN (17:35)
[2017-07-25] MEDS ORDERED: ACETAMINOPHEN 650 MG SUPP PR PRN (17:35)
[2017-07-25] MEDS ORDERED: SODIUM CL NASAL 45 ML BTL EACHNARE PRN (17:35)
[2017-07-25] MEDS ORDERED: BISACODYL 10 MG SUPP PR PRN (17:35)
[2017-07-25] MEDS ORDERED: MEPERIDINE 25 MG/ML SYR IVP PRN (17:35)
[2017-07-25] MEDS ORDERED: CEPACOL LOZENGE PO PRN (17:35)
[2017-07-25] MEDS ORDERED: NS 1,000 ML IV SCH (17:45)
[2017-07-25] MEDS ORDERED: INSULIN REGULAR HUMAN 100 UNIT in NS 100 ML IV SCH (18:00)
[2017-07-25] MEDS: POTASSIUM Cl (KCl) 50 ML IV PRN ×4 (18:24→21:58)
[2017-07-25 19:13] LABS: CALCULATED OXYGEN SATURATION 99 % (92-95); O2 CONCENTRATIION 100 % (0-100)
[2017-07-25] MEDS ORDERED: NITROPRUSSIDE SODIUM 50 MG in D5W 250 ML IV SCH (19:30)
[2017-07-25] MEDS: KETOROLAC 15 MG/1 ML SDV IVP SCH ×2 (20:19→23:34)
[2017-07-25] MEDS: MUPIROCIN 2% 22 GM OINT NS SCH (20:43)
[2017-07-25] MEDS: FAMOTIDINE 20 MG/NACL 50 ML IV SCH (20:44)
[2017-07-25] MEDS: CHLORHEXIDINE GLUCONATE 15 ML UDL PO SCH (21:39)
[2017-07-25] MEDS: ceFAZolin 2 GM/DEXTROSE 100 ML IV SCH (21:58)
[2017-07-25] MEDS: fentaNYL 100 MCG/2 ML INJ IVP PRN ×2 (22:16→22:46)
[2017-07-26 03:55] LABS: % IMMATURE GRANULYOCYTES 0.4 % (0.0-1.1); ABSOLUTE IMMATURE GRANULOCYTES 0.04 10^3/uL (0.00-0.10); ADD DIFF? NO; ADD MORPH? NO; ADD SCAN? NO; ATYPICAL LYMPHOCYTE FLAG 0 (0-99); FRAGMENT RBC FLAG 0 (0-99); HEMATOCRIT 28.4 % (38.0-47.0); HEMOGLOBIN 9.6 g/dL (12.6-16.3); LEFT SHIFT FLG 10 (0-99); LIPEMIA HEMOLYSIS FLAG 90 (0-99); MEAN CELL HEMOGLOBIN 29.9 pg (27.9-34.1); MEAN CELL HEMOGLOBIN CONCENTR. 33.8 g/dL (32.4-36.7); MEAN CELL VOLUME 88.5 fL (81.5-99.8); MEAN PLATELET VOLUME 11.5 fL (8.7-11.7); PLATELET CLUMPS FLAG 0 (0-99); PLATELET COUNT 109 10^3/uL (150-400); RED BLOOD CELL COUNT 3.21 10^6/uL (4.18-5.33); RED CELL DISTRIBUTION WIDTH 14.4 % (11.5-15.2)
[2017-07-26] MEDS: fentaNYL 100 MCG/2 ML INJ IVP PRN (03:58)
[2017-07-26 04:27] LABS: ANION GAP 9 mEq/L (8-16); CALCIUM 7.4 mg/dL (8.5-10.4); CARBON DIOXIDE 23 mEq/l (22-31); CHLORIDE 111 mEq/L (97-110); CREATININE 0.7 mg/dL (0.6-1.0); GLOMERULAR FILTRATION RATE > 60; GLUCOSE 103 mg/dL (70-100); POTASSIUM 4.4 mEq/L (3.5-5.2); SODIUM 143 mEq/L (134-144)
[2017-07-26] MEDS: HEPARIN 5,000 UNIT/0.5 ML SYR SC SCH ×3 (05:56→22:35)
[2017-07-26] MEDS: ceFAZolin 2 GM/DEXTROSE 100 ML IV SCH ×3 (05:57→22:34)
[2017-07-26] MEDS: KETOROLAC 15 MG/1 ML SDV IVP SCH ×3 (05:57→17:44)
--- NOTE | 2017-07-26 07:17 | SOAPPROG ---
SOAP Progress Note Assessment/Plan: POD #1: septal myectomy Hypertrophic obstructive cardiomyopathy with severe left ventricular outflow obstruction s/p septal myectomy - AL/FC out, CTs to bulb suction - Transfer to PCU CHF, stage 2, diastolic - Care with pre-load - BB to start today, other HF meds as tolerated by BP DM 2, diet-controlled (HbgA1c of 6.9) - Consistent carbohydrate diet ordered - Insulin gtt to convert to ISS for short-term monitoring Subjective: Some incisional pain and pain at tube sites otherwise no complaints. Objective: Vital Signs Temp Pulse Resp BP Pulse Ox 37.5 C 103 H 20 117/51 L 95 07/26/17 01:00 07/26/17 06:00 07/26/17 06:00 07/26/17 06:00 07/26/17 06:00 Laboratory Results 07/26/17 03:37 07/26/17 03:37 07/25/17 07/26/17 07/27/17 05:59 05:59 05:59 Intake Total 874.2 Output Total 1944 Balance -1069.8 Physical Exam - Physical Exam General Appearance: WD/WN, alert, no apparent distress, obese EENT: No scleral icterus (R), No scleral icterus (L) Neck: normal inspection Respiratory: lungs clear, No respiratory distress Cardiac/Chest: tachycardia Abdomen: non-tender, soft, No distended Skin: normal color, warm/dry Extremities: No pedal edema Neuro/Psych: no motor/sensory deficits, alert, normal mood/affect, oriented x 3 ICD10 Worksheet Patient Problems: Problems Problem Status Onset Acute blood loss anemia Acute S/P ventricular septal myectomy Acute ~07/25/17 Acute chest pain Acute 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
[2017-07-26] MEDS: POTASSIUM Cl (KCl) 50 ML IV PRN (08:05)
[2017-07-26] MEDS: CHLORHEXIDINE GLUCONATE 15 ML UDL PO SCH (08:41)
[2017-07-26] MEDS: FAMOTIDINE 20 MG/NACL 50 ML IV SCH (08:41)
[2017-07-26] MEDS: MUPIROCIN 2% 22 GM OINT NS SCH ×2 (08:42→20:50)
[2017-07-26] MEDS ORDERED: ASPIRIN 81 MG CHEWABLE TAB TUBE PRN (09:00)
--- NOTE | 2017-07-26 10:10 | POSTANESTH ---
Post Anesthetic Evaluation Cardiovascular Status: Normal, Stable Respiratory Status: Normal, Stable Level of Consciousness/Mental Status: Can Participate in Eval Pain Control: Adequate, Prn Tx Ordered Nausea/Vomiting Control: Adequate, Prn Tx Ordered Complications Possibly Related to Anesthesia: None Noted
--- NOTE | 2017-07-26 10:37 | GCON ---
[f rep st] CONSULTATION BI DATA ARCHITECT CONSULTATION Patient examined postoperatively after receiving a myomectomy. HISTORY OF PRESENT ILLNESS: The patient is a very pleasant 71-year-old female with a past medical history of breast cancer, cataracts, diabetes, hypertension, and hyperlipidemia. In discuss ion, the patient states that her pain is well controlled. She denies any current shortness of breat h. She does have pain with increasing cough or deep inspiration. Denies any nausea, vomiting, or d iarrhea. There has been no fever or night sweats. Prior to her surgery, she had increasing lighthe adedness, as well as breathlessness and dyspnea upon exertion. PAST MEDICAL HISTORY: Significant for breast cancer, cataracts, diabetes, hypertension, hyperlipide smooth, and obstructive hypertrophic cardiomyopathy. She also had severe subvalvular aortic stenosis. ALLERGIES: No known allergies to medications. SOCIAL HISTORY: No history of tobacco use. She is . She has good family support. MEDICATIONS: At home include aspirin, herbal supplements, metoprolol, simvastatin, verapamil, and P roAir. PHYSICAL EXAM: VITAL SIGNS: Blood pressure is 135/58. Pulse is 90, respirations 18, temperature 3 8.0, oxygen saturation 96% on 2 L. GENERAL: She is a moderately overweight, elderly femal e who is resting comfortably, in mild pain. HEENT: Eyes PERRL, EOMI. Throat shows no erythema or tonsillar hypertrophy. NECK: Supple. There is no cervical adenopathy. HEART: Regular rate and r hythm, with a 2/6 systolic murmur, left sternal border, without radiation. LUNGS: Diminished breat h sounds, a few bibasilar crackles, but there is no wheeze. ABDOMEN: Soft, nontender. Bowel sound s are present in all 4 quadrants. EXTREMITIES: No clubbing, cyanosis, or edema. LABORATORY DATA: White count is 11, hemoglobin 9.9, hematocrit of 28. Platelet count is 109. Sodi um 144, potassium 4.3, chloride 109. CO2 is 23, BUN 11, creatinine 0.7. Glucose is 103. IMPRESSION: 1. Hypertrophic cardiomyopathy with subvalvular aortic stenosis. 2. Status post myomectomy. 3. History of diabetes. 4. History of breast cancer. 5. Hypertension. 6. Hyperlipidemia. 7. Pain, adequately controlled. RECOMMENDATIONS: 1. Aggressive blood sugar control. 2. DVT and PE prophylaxis, holding anticoagulation for now. 3. Stress ulcer prophylaxis. 4. Early ambulation. 5. Adequate nutrition. 6. PT and OT. /[id number]/MODL
[2017-07-26] MEDS: PANTOPRAZOLE SODIUM 40 MG TAB PO SCH (12:46)
[2017-07-26] MEDS ORDERED: D50W 25 GM/50 ML SYR IVP PRN (14:16)
[2017-07-26] MEDS: METOPROLOL TARTRATE 25 MG TAB PO SCH ×2 (14:29→20:49)
[2017-07-26] MEDS ORDERED: D10W 250 ML PRN HYPOGLYCEMIA IV (14:30)
--- NOTE | 2017-07-26 14:57 | CPEKG ---
Heart Rate: 104 RR Interval: 577 P-R Interval: 144 QRSD Interval: 146 QT Interval: 424 QTC Interval: 558 P [place]: 40 QRS [place]: -1 T Wave [place]: 164 EKG Severity - ABNORMAL ECG - EKG Impression: PROBABLY SINUS TACHYCARDIA EKG Impression: PROMINENT P WAVES, NONDIAGNOSTIC EKG Impression: LEFT BUNDLE BRANCH BLOCK Electronically Signed By: Brian Lu 27-Jul-2017 08:43:01
--- NOTE | 2017-07-26 15:20 | ASMTCASEMG ---
Living Arrangements What is your living arrangement? Who do you live Answers: With Spouse with? Case Management Evaluation Functional: Able to return Home with Prior Level Answers: No Notes: will need HC Services of Function/Care Functional: ADL / IADL Performance Deficits Due Answers: Chronic Illness to: Deconditioning Discharge Plan Comments Coordination Status Comments Notes: 71yo Faroese Speaking female admitted for SOB, MR, Cardiomyopathy, HTN, HLD, DM-2. Has a hx of nicanor st ca, obesity. Tx= Septal myectomy and MVR. Therapies to eval for D/C needs. CM to follow Date Signed: 07/26/2017 03:20 PM Electronically Signed By:Elida Ventura
[2017-07-26] MEDS ORDERED: NS 1,000 ML IV SCH (15:45)
[2017-07-26] MEDS: INSULIN REGULAR HUMAN 100 UNIT/ML SC SCH ×2 (17:40→20:49)
[2017-07-26 17:55] LABS: POTASSIUM 4.6 mEq/L (3.5-5.2)
--- NOTE | 2017-07-26 20:09 | GOP ---
[f rep st] OPERATIVE REPORT DATE OF OPERATION: 07/25/2017 SURGEON: Vernon Adam DO PAROLE DIRECTOR: Nas Frazier MD ANESTHESIOLOGIST: Eric Zarate MD PREOPERATIVE DIAGNOSIS: 1. Hypertrophic obstructive cardiomyopathy (HOCM) with systolic anterior motion (DANNY), class 3. 2. Mitral insufficiency secondary to hypertrophic obstructive cardiomyopathy. 3. Underlying hypertensive heart disease. POSTOPERATIVE DIAGNOSIS: 1. Hypertrophic obstructive cardiomyopathy (HOCM) with systolic anterior motion (DANNY), class 3. 2. Mitral insufficiency secondary to hypertrophic obstructive cardiomyopathy. 3. Underlying hypertensive heart disease. PROCEDURE PERFORMED: Extended septal myectomy, transaortic. FINDINGS: The patient was found to have progressive subaortic outflow tract obstruction with DANNY, w hich had become symptomatic under observation by her gps field data collector. She underwent diagnostic left he art catheterization which showed no significant obstructive disease. She was referred for surgical intervention. Multiple visits with the patient's family. The patient agreed to surgical myectomy w ith possible need for apical approach as well as possible mitral valve replacement, and possible per manent pacemaker postoperatively. She was consented for surgery. DESCRIPTION OF PROCEDURE: She was brought to the operating room, intubated, monitoring lines were p laced. She was prepped and draped in sterile classical manner. Transesophageal echo confirmed a pe ak gradient of approximately 80 at rest under sedation. We then visualized the heart prior to childers otomy. Dr. Frazier first assisted. We performed sternotomy, heparinized the patient, cannulated with bicaval cannulas. Cardiopulmonary bypass was begun. A cardioplegic arrest was obtained with both antegrade cardioplegia and retrograde cardioplegia, topical hypothermia and systemic cooling. A transverse aortotomy was performed and normal trileaflet valve was retracted. The bulging septum was identified and in the midportion at the junction of the left and right aortic valve leaflets, a 1 cm deep incision was extended down to the apex where the papillary muscles were noted, utilizing a suture for retraction on the distal septum in order to identify it. This was continued out at the junction of the left and right cusps, again 1 cm deep. We then used a #11 blade to carefully dissec t that large segment of muscle as a trough, all the way down to the apex of the heart. There was an abnormal connection between the papillary muscle and the septum. This was divided and excised. Th e papillary muscles were enlarged but there was no abnormal attachment to the leaflets. It should b e noted that a preop echo showed severe mitral insufficiency along with outflow tract obstruction at rest. We then spent some time debriding the raw surface area, taking it down as deep as we felt safe, appr oximately 12-14 mm deep into the septum, taking great care to avoid the area of conduction to the ri ght. We then irrigated the chamber. LV sump had been placed before; this was resumed while the aor totomy was closed. The cross-clamp was removed with the patient in Trendelenburg, and she was aspir ated through the apex and vented through the ascending aorta in Trendelenburg until no further air w as identified. She then was easily weaned from bypass. The sump was removed. Inspection of the heart revealed no significant DANNY at this point, with minimal outflow tract obstru ction of approximately 20 at rest. Increasing the heart rate to 110 did not change the physiology. Mitral regurg was then trace. We then attempted 20 mcg of Isuprel and were actually able to recrea te some DANNY at the very distal apex and papillary muscle; however, no significant mitral regurgitati on. Because of her overall hypertrophy, I felt that there was no further muscle to resect, and in o rder to achieve any further improvement, we would have to replace the mitral valve. The patient was accepting, but relatively opposed to this idea to avoid Coumadin; for that reason, we continued to watch her and the outflow tract appeared to open up with no DANNY toward the end with volume, and rest arting the heart rate down to 80. The heparin was then was reversed with protamine. The cannula was removed and oversewn. 4 pacing w ires, 2 mediastinal drains were placed. The thymic fat and pericardium were closed. Chest was clos ed in standard fashion. The patient was returned to ICU in stable condition. /[id number]/MODL
[2017-07-26 20:53] LABS: POTASSIUM 4.5 mEq/L (3.5-5.2)
[2017-07-27] MEDS: KETOROLAC 15 MG/1 ML SDV IVP SCH (00:38)
[2017-07-27 04:00] LABS: % IMMATURE GRANULYOCYTES 0.6 % (0.0-1.1); ABSOLUTE IMMATURE GRANULOCYTES 0.07 10^3/uL (0.00-0.10); ADD DIFF? NO; ADD MORPH? NO; ADD SCAN? NO; ATYPICAL LYMPHOCYTE FLAG 0 (0-99); FRAGMENT RBC FLAG 0 (0-99); HEMATOCRIT 23.1 % (38.0-47.0); HEMOGLOBIN 7.6 g/dL (12.6-16.3); LEFT SHIFT FLG 20 (0-99); LIPEMIA HEMOLYSIS FLAG 80 (0-99); MEAN CELL HEMOGLOBIN 30.5 pg (27.9-34.1); MEAN CELL HEMOGLOBIN CONCENTR. 32.9 g/dL (32.4-36.7); MEAN CELL VOLUME 92.8 fL (81.5-99.8); MEAN PLATELET VOLUME 11.5 fL (8.7-11.7); PLATELET CLUMPS FLAG 20 (0-99); PLATELET COUNT 83 10^3/uL (150-400); RED BLOOD CELL COUNT 2.49 10^6/uL (4.18-5.33)
[2017-07-27 04:13] LABS: ANION GAP 4 mEq/L (8-16); CALCIUM 7.3 mg/dL (8.5-10.4); CARBON DIOXIDE 25 mEq/l (22-31); CHLORIDE 107 mEq/L (97-110); CREATININE 0.8 mg/dL (0.6-1.0); GLOMERULAR FILTRATION RATE > 60; GLUCOSE 124 mg/dL (70-100); POTASSIUM 4.6 mEq/L (3.5-5.2); SODIUM 136 mEq/L (134-144)
--- NOTE | 2017-07-27 06:14 | SOAPPROG ---
SOAP Progress Note Assessment/Plan: POD #2: Transaortic extended septal myectomy Hypertrophic obstructive cardiomyopathy with severe left ventricular outflow obstruction, DANNY of the mitral valve with MR s/p extended septal myectomy - weaned from CPB without difficulty. Intra-op ECHO revealed no significant DANNY, minimal outflow tract obstruction and trace MR - AL/FC out, CTs to remain bulb suction - SDU status until rhythm stabilizes Acute blood loss anemia - HCT lower today without sings of active bleeding - continue to monitor Junctional rhythm, intermittent - Continue VVI backup - Possible PPM if no resolution CHF, stage 2, diastolic - Care with pre-load - Continue BB, other HF meds as tolerated by BP DM 2, diet-controlled (HbgA1c of 6.9) - ISS for short-term monitoring Subjective: Hard to take deep breaths. Pain well-controlled. Objective: Vital Signs Temp Pulse Resp BP Pulse Ox 37.3 C 90 18 125/58 H 93 07/27/17 04:00 07/27/17 05:00 07/27/17 05:00 07/27/17 05:00 07/27/17 05:00 Laboratory Results 07/27/17 03:50 07/27/17 03:50 07/26/17 07/27/17 07/28/17 05:59 05:59 05:59 Intake Total 874.2 1865 Output Total 1944 585 Balance -1069.8 1280 Physical Exam - Physical Exam General Appearance: WD/WN, alert, no apparent distress, obese EENT: No scleral icterus (R), No scleral icterus (L) Neck: normal inspection Respiratory: No respiratory distress Cardiac/Chest: regular rate, rhythm, other (JR) Abdomen: non-tender, soft, No distended Skin: normal color, warm/dry Extremities: pedal edema Neuro/Psych: no motor/sensory deficits, alert, normal mood/affect, oriented x 3 ICD10 Worksheet Patient Problems: Problems Problem Status Onset Acute blood loss anemia Acute S/P ventricular septal myectomy Acute ~07/25/17 Acute chest pain Acute 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
[2017-07-27] MEDS: HEPARIN 5,000 UNIT/0.5 ML SYR SC SCH ×3 (06:29→20:08)
[2017-07-27] MEDS: ceFAZolin 2 GM/DEXTROSE 100 ML IV SCH (06:29)
[2017-07-27 08:41] LABS: HEMATOCRIT 25.6 % (38.0-47.0); HEMOGLOBIN 8.3 g/dL (12.6-16.3)
[2017-07-27] MEDS: METOPROLOL TARTRATE 25 MG TAB PO SCH ×2 (09:00→20:08)
[2017-07-27] MEDS: PANTOPRAZOLE SODIUM 40 MG TAB PO SCH (09:01)
[2017-07-27] MEDS: SENNOSIDES/DOCUSATE SODIUM TAB PO SCH ×2 (09:01→20:09)
[2017-07-27] MEDS: INSULIN REGULAR HUMAN 100 UNIT/ML SC SCH ×4 (09:01→20:15)
[2017-07-27] MEDS: ASPIRIN EC 81 MG TAB PO SCH (09:01)
[2017-07-27] MEDS: MUPIROCIN 2% 22 GM OINT NS SCH (09:04)
--- NOTE | 2017-07-27 09:09 | PDINTPN ---
Sewer Contractor Progress Note Assessment/Plan: Assessment/plan: * Subvalvular aortic stenosis * Status post myomectomy * Hypertension-well controlled * Obesity * History of breast cancer * Pain-well controlled * PT/OT * Ambulation * Nutrition-adequate Subjective: Up in chair. Comfortable. She is using IS appropriately. Objective: Vital Signs Temp Pulse Resp BP Pulse Ox 37.3 C 103 H 16 112/80 92 07/27/17 04:00 07/27/17 09:00 07/27/17 06:00 07/27/17 09:00 07/27/17 06:00 Laboratory Results 07/27/17 08:15 07/27/17 03:50 07/26/17 07/27/17 07/28/17 05:59 05:59 05:59 Intake Total 874.2 1865 Output Total 1944 585 Balance -1069.8 1280 Physical Exam - Physical Exam General Appearance: WD/WN, alert, no apparent distress EENT: PERRL/EOMI, normal ENT inspection, pharynx normal, TMs normal Neck: non-tender, full range of motion, supple, normal inspection Respiratory: chest non-tender, lungs clear, normal breath sounds Cardiac/Chest: normal peripheral pulses, regular rate, rhythm, systolic murmur Abdomen: normal bowel sounds, non-tender, soft Pelvic Exam: deferred Rectal: deferred Skin: normal color, warm/dry Extremities: normal range of motion, non-tender, normal inspection, normal capillary refill Neuro/Psych: no motor/sensory deficits, alert, normal mood/affect, oriented x 3 ICD10 Worksheet Patient Problems: Problems Problem Status Onset Acute blood loss anemia Acute S/P ventricular septal myectomy Acute ~07/25/17 Acute chest pain Acute 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
[2017-07-27] MEDS: SYSTANE ULTRA EYE DROPS EACHEYE SCH ×2 (15:39→20:09)
[2017-07-27] MEDS: HYDROCODONE/APAP 5/325 TAB PO PRN (16:31)
[2017-07-28] MEDS: HEPARIN 5,000 UNIT/0.5 ML SYR SC SCH ×3 (05:21→21:31)
[2017-07-28 05:30] LABS: % IMMATURE GRANULYOCYTES 0.9 % (0.0-1.1); ABSOLUTE IMMATURE GRANULOCYTES 0.13 10^3/uL (0.00-0.10); ABSOLUTE NRBC COUNT 0.06 10^3/uL (0-0.01); ADD DIFF? NO; ADD MORPH? NO; ADD SCAN? NO; ATYPICAL LYMPHOCYTE FLAG 0 (0-99); FRAGMENT RBC FLAG 0 (0-99); HEMATOCRIT 22.3 % (38.0-47.0); HEMOGLOBIN 7.3 g/dL (12.6-16.3); LEFT SHIFT FLG 10 (0-99); LIPEMIA HEMOLYSIS FLAG 80 (0-99); MEAN CELL HEMOGLOBIN 30.4 pg (27.9-34.1); MEAN CELL HEMOGLOBIN CONCENTR. 32.7 g/dL (32.4-36.7); MEAN CELL VOLUME 92.9 fL (81.5-99.8); MEAN PLATELET VOLUME 11.8 fL (8.7-11.7); NRBC-AUTO% 0.4 % (0.0-0.2); PLATELET CLUMPS FLAG 0 (0-99); PLATELET COUNT 100 10^3/uL (150-400); RED CELL DISTRIBUTION WIDTH 14.6 % (11.5-15.2)
--- NOTE | 2017-07-28 07:37 | SOAPPROG ---
SOAP Progress Note Assessment/Plan: Assessment: POD#3 Transaortic extended septal myectomy HOCM with severe LVOT obstruction, mitral DANNY and MR - Significant reduction in outflow tract gradient, DANNY and MR s/p extended septal myectomy. Weaned from CPB without difficulty. - AL/FC out, CTs to remain bulb suction - SDU status until rhythm stabilizes Acute blood loss anemia - Downward drift in H/H to plateau of 7/22 range. Well tolerated. No evidence active bleeding. Transfuse prn sx. Junctional rhythm, intermittent - Continue VVI backup @ 60. - Possible PPM if recurrent carlos on BB. Chronic dCHF, stage 2 - Care with pre-load - Continue BB, other HF meds as tolerated by BP DM 2, diet-controlled (HbgA1c of 6.9) - ISS for short-term monitoring Plan: Remove Awires. Remove mediastinal drains. Increase metoprolol to 50 mg BID. Cards to see re PPM. Intensify pulm toilet. Cont inc activity as tolerated. Cont SDU status. 07/28/17 07:37 Subjective: In good spirits. Comfortable. No acute concerns. Objective: Vital Signs Temp Pulse Resp BP Pulse Ox 36.5 C 89 17 136/63 H 92 07/28/17 04:00 07/28/17 04:00 07/28/17 04:00 07/28/17 04:00 07/28/17 04:00 Laboratory Results 07/28/17 05:20 07/27/17 03:50 07/27/17 07/28/17 07/29/17 05:59 05:59 05:59 Intake Total 1865 360 Output Total 585 870 Balance 1280 -510 SR/ST with upward trending SBP. Stable sats. Minimal CTOP. Drop in H/H likely dilutional, +1.3 L yest. Physical Exam - Physical Exam General Appearance: alert, no apparent distress Respiratory: decreased breath sounds (bases, L>R), other (blakes x 2 to bulb suction, serosang drainage) Cardiac/Chest: regular rate, rhythm, other (Sternum grossly stable. Sternotomy CDI. A&V wires intact) Abdomen: normal bowel sounds, non-tender, soft Skin: warm/dry Extremities: swelling (1+ dependent) ICD10 Worksheet Patient Problems: Problems Problem Status Onset Acute blood loss anemia Acute S/P ventricular septal myectomy Acute ~07/25/17 Acute chest pain Acute 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
[2017-07-28 08:08] LABS: HEMATOCRIT 22.7 % (38.0-47.0); HEMOGLOBIN 7.5 g/dL (12.6-16.3)
[2017-07-28] MEDS: SENNOSIDES/DOCUSATE SODIUM TAB PO SCH ×2 (08:10→21:31)
[2017-07-28] MEDS: SYSTANE ULTRA EYE DROPS EACHEYE SCH ×2 (08:11→21:32)
[2017-07-28] MEDS: PANTOPRAZOLE SODIUM 40 MG TAB PO SCH (08:11)
[2017-07-28] MEDS: ASPIRIN EC 81 MG TAB PO SCH (08:11)
[2017-07-28] MEDS ORDERED: ALBUTEROL 60 PUFFS/8 GM MDI IH PRN (09:00)
[2017-07-28] MEDS ORDERED: METOPROLOL TARTRATE 50 MG TAB PO SCH (09:00)
--- NOTE | 2017-07-28 09:16 | PDINTPN ---
Artist Model Progress Note Assessment/Plan: Assessment/plan: * Subvalvular aortic stenosis * Status post myomectomy * Hypertension-well controlled * Respiratory-stable on minimal oxygen. * Obesity * History of breast cancer * Pain-well controlled * PT/OT * Ambulation-PT/OT * Nutrition-adequate Subjective: Up in chair eating breakfast. Comfortable. Only painful when she laughs or takes a deep inspiration Objective: Vital Signs Temp Pulse Resp BP Pulse Ox 37.1 C 91 24 H 143/50 H 94 07/28/17 08:00 07/28/17 08:10 07/28/17 08:00 07/28/17 08:10 07/28/17 08:00 Laboratory Results 07/28/17 07:54 07/27/17 03:50 07/27/17 07/28/17 07/29/17 05:59 05:59 05:59 Intake Total 1865 360 Output Total 585 870 Balance 1280 -510 Physical Exam - Physical Exam General Appearance: WD/WN, alert, no apparent distress EENT: PERRL/EOMI, normal ENT inspection, pharynx normal, TMs normal Neck: non-tender Respiratory: chest non-tender, lungs clear, normal breath sounds Cardiac/Chest: normal peripheral pulses, regular rate, rhythm, systolic murmur Abdomen: normal bowel sounds, non-tender, soft Pelvic Exam: deferred Rectal: deferred Skin: normal color, warm/dry Neuro/Psych: no motor/sensory deficits, alert, normal mood/affect, oriented x 3 ICD10 Worksheet Patient Problems: Problems Problem Status Onset Acute blood loss anemia Acute S/P ventricular septal myectomy Acute ~07/25/17 Acute chest pain Acute 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
[2017-07-28] MEDS: HYDROCODONE/APAP 5/325 TAB PO PRN ×2 (09:45→18:21)
[2017-07-28] MEDS: INSULIN REGULAR HUMAN 100 UNIT/ML SC SCH ×4 (09:47→21:40)
[2017-07-28] MEDS ORDERED: ALBUTEROL 200 PUFFS/18 GM MDI IH PRN (09:50)
--- NOTE | 2017-07-28 17:26 | ASMTCMCOM ---
CM Note CM Note Notes: Spoke with patient and her daughter re: d/c plan. PT/OT have recommended patient have home health care for nursing and physical therapy. Spoke with [facility] and they have accepted patient. They will follow her progress on [employer].CM will follow. Date Signed: 07/28/2017 05:25 PM Electronically Signed By:Helena Smart
[2017-07-28] MEDS: METOPROLOL TARTRATE 100 MG TAB PO SCH (21:29)
[2017-07-28] MEDS: traMADol 50 MG TAB PO PRN (21:31)
[2017-07-29 05:21] LABS: HEMATOCRIT 21.1 % (38.0-47.0); MEAN CELL HEMOGLOBIN CONCENTR. 32.2 g/dL (32.4-36.7); RED BLOOD CELL COUNT 2.27 10^6/uL (4.18-5.33); RED CELL DISTRIBUTION WIDTH 14.6 % (11.5-15.2)
[2017-07-29 05:25] LABS: HEMOGLOBIN 6.8 g/dL (12.6-16.3)
[2017-07-29] MEDS: HEPARIN 5,000 UNIT/0.5 ML SYR SC SCH ×3 (05:43→20:33)
[2017-07-29 05:50] LABS: ANION GAP 4 mEq/L (8-16); CALCIUM 7.6 mg/dL (8.5-10.4); CARBON DIOXIDE 28 mEq/l (22-31); CHLORIDE 104 mEq/L (97-110); CREATININE 0.6 mg/dL (0.6-1.0); GLOMERULAR FILTRATION RATE > 60; GLUCOSE 96 mg/dL (70-100); POTASSIUM 3.9 mEq/L (3.5-5.2); SODIUM 136 mEq/L (134-144)
--- NOTE | 2017-07-29 06:46 | SOAPPROG ---
SOAP Progress Note Assessment/Plan: POD #4: Transaortic extended septal myectomy Hypertrophic obstructive cardiomyopathy with severe left ventricular outflow obstruction, DANNY of the mitral valve with MR s/p extended septal myectomy - intra-op ECHO revealed no significant DANNY, minimal outflow tract obstruction and trace MR. - ECHO this AM for re-evaluation - PCU status in ICU until rhythm stabilizes Acute blood loss anemia - HCT lower today without sings of active bleeding and adequate BP - continue to monitor Bradycardia, intermittent - Continue VVI backup - Beta-raphael uptitrated without evidence of need for pacer - cardiology to evaluate CHF, stage 2, diastolic - Care with pre-load - Continue BB, other HF meds as tolerated by BP DM 2, diet-controlled (HbgA1c of 6.9) - ISS for short-term monitoring Subjective: Denies pain, SOB. Objective: Vital Signs Temp Pulse Resp BP Pulse Ox 37.0 C 76 19 140/55 H 97 07/29/17 05:45 07/29/17 05:45 07/29/17 05:45 07/29/17 05:45 07/29/17 05:45 Laboratory Results 07/29/17 05:00 07/29/17 05:00 07/28/17 07/29/17 07/30/17 05:59 05:59 05:59 Intake Total 360 1580 Output Total 870 1300 Balance -510 280 Physical Exam - Physical Exam General Appearance: WD/WN, alert, no apparent distress EENT: No scleral icterus (R), No scleral icterus (L) Neck: normal inspection Respiratory: No respiratory distress Cardiac/Chest: regular rate, rhythm Abdomen: non-tender, soft, No distended Skin: normal color, warm/dry Extremities: No pedal edema Neuro/Psych: no motor/sensory deficits, alert, normal mood/affect, oriented x 3 ICD10 Worksheet Patient Problems: Problems Problem Status Onset Acute blood loss anemia Acute S/P ventricular septal myectomy Acute ~07/25/17 Acute chest pain Acute 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
[2017-07-29] MEDS: INSULIN REGULAR HUMAN 100 UNIT/ML SC SCH ×4 (08:27→22:12)
[2017-07-29] MEDS ORDERED: POTASSIUM CL 20 MEQ TAB PO ONE (08:50)
--- NOTE | 2017-07-29 08:51 | PDINTPN ---
[employer] Progress Note Assessment/Plan: Assessment/plan: * Subvalvular aortic stenosis * Status post myomectomy * Hypertension-well controlled * Anemia-H&H stable * Respiratory-stable on room air * Obesity * History of breast cancer * Pain-well controlled * PT/OT * Ambulation-PT/OT * Nutrition-adequate Overall continues remarkable improvement Subjective: Up in chair. Pain is fairly well controlled. Denies any breathlessness. Objective: Vital Signs Temp Pulse Resp BP Pulse Ox 37.6 C 77 20 149/61 H 95 07/29/17 08:00 07/29/17 08:00 07/29/17 08:00 07/29/17 08:00 07/29/17 08:00 Laboratory Results 07/29/17 05:00 07/29/17 05:00 07/28/17 07/29/17 07/30/17 05:59 05:59 05:59 Intake Total 360 1580 Output Total 870 1300 Balance -510 280 Physical Exam - Physical Exam General Appearance: alert, no apparent distress EENT: PERRL/EOMI, normal ENT inspection Neck: non-tender, full range of motion, supple, normal inspection Respiratory: chest non-tender, lungs clear, normal breath sounds Cardiac/Chest: normal peripheral pulses, regular rate, rhythm, systolic murmur Abdomen: normal bowel sounds, non-tender, soft Pelvic Exam: deferred Rectal: deferred Skin: normal color, warm/dry Extremities: normal range of motion, non-tender, normal inspection, normal capillary refill Neuro/Psych: no motor/sensory deficits, alert, normal mood/affect, oriented x 3 ICD10 Worksheet Patient Problems: Problems Problem Status Onset Acute blood loss anemia Acute S/P ventricular septal myectomy Acute ~07/25/17 Acute chest pain Acute 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
[2017-07-29] MEDS: PANTOPRAZOLE SODIUM 40 MG TAB PO SCH (08:53)
[2017-07-29] MEDS: PRAVASTATIN SODIUM 20 MG TAB PO SCH (08:53)
[2017-07-29] MEDS: ASPIRIN EC 81 MG TAB PO SCH (08:53)
[2017-07-29] MEDS: METOPROLOL TARTRATE 100 MG TAB PO SCH ×2 (08:53→20:33)
[2017-07-29] MEDS: SENNOSIDES/DOCUSATE SODIUM TAB PO SCH ×2 (08:54→20:39)
[2017-07-29] MEDS ORDERED: NON-FORMULARY NEW DRUG (Simvastatin [Simvastatin] 10 MG) PO SCH (09:00)
[2017-07-29] MEDS: SYSTANE ULTRA EYE DROPS EACHEYE SCH ×2 (09:04→22:12)
[2017-07-29 09:08] LABS: HEMATOCRIT 22.6 % (38.0-47.0); HEMOGLOBIN 7.4 g/dL (12.6-16.3)
--- NOTE | 2017-07-29 11:01 | ECHO ---
[id number] + + [address] : : [place] [address] : : [phone] + + Adult Echocardiographic Report + + :Name: TAMARA BONDSRoosevelt Date: 07/29/2017 07:45 AM : : Hospital Admission Number: [id number] ocation: 248: :: 1945 Gender: Female Height: 6 1 in : :Age: 71 yrs Race: HL,PTNP,OTH Weight: 1 62 lb : :Reason For Study: HOCM/LVOT S/P septal myectomy : : BSA: 1.7 meters2 : + + MMode/2D Measurements \T\ Calculations IVSd: 1.5 cm LVIDd: 3.7 cm FS: 39.0 % Ao root diam: 2.6 cm LVPWd: 1.2 cm LVIDs: 2.2 cm EDV(Teich): 57.5 ml LA dimension: 4.4 cm ESV(Teich): 17.1 ml EF(Teich): 70.2 % Normal Measurement Values: + + :LVIDd (3.5-5.7cm) IVSd (0.6-1.1cm) LVPWd (0.6-1.1cm) Aortic Root (2.0-3.7cm)Left Atrium (1.5-4.0cm): :LV Vol(d) (76-115ml) LV Vol(s) (29-48ml) Ejec Fraction (50-65%)PV Brodie (0.6- 1.2m/s) TV Brodie (0.4-1.0m/s) : :MV E Brodie (0.8-1.0m/s)MV A Brodie (0.3-1.0m/s)LVOT Brodie (0.7-1.2m/s) Asc Ao Brodie ( 0.9-1.8m/s) : + + Doppler Measurements \T\ Calculations MV E max brodie: 103.0 cm/sec MV A max brodie: 95.6 cm/sec MV E/A: 1.1 Left Ventricle The left ventricle is normal in size. There is mild asymmetric left ventricular hypertrophy. The left ventricle is hyperdynamic. Ejection Fraction = 70-75%. The left ventricular ejection fraction is calculated at 70.2 %. There is Doppler evidence for diastolic dysfunction. No regional wall motion abnormalities noted. Right Ventricle The right ventricle is normal in size and function. Atria The left atrium is mildly dilated. Right atrial size is normal. Mitral Valve The mitral valve is normal in structure and function. There is no evidence of mitral valve prolapse. There is no mitral valve stenosis. There is mild mitral regurgitation. Tricuspid Valve Normal tricuspid valve. There is trace tricuspid regurgitation. Aortic Valve The aortic valve opens well. LVOT/AV gradient is 14mmHG. There is no aortic insufficiency. Pulmonic Valve The pulmonic valve is not well visualized. There is no pulmonic valvular regurgitation. Great Vessels The aortic root is normal size. Conclusion A complete two-dimensional transthoracic echocardiogram was performed (2D, M-mode, Doppler and color flow Doppler). (1) Left ventricular systolic ejection fraction was normal to hyperdynamic (>70%) - grossly normal wall motion (2) Mild asymmetric septal hypertrophy is now noted (3) Diastolic dysfunction is present (4) Normal right ventricular systolic function (5) Mild left atrial dilation with normal right atrial dimension (6) Mild mitral regurgitation (7) Trileaflet aortic valve without appreciable insufficiency (8) Physiologic tricuspid regurgitation (9) Poor visualization of the pulmonic valve (10) In comparison to prior echocardiogram, there has been significant reduction in the LVOT gradients noted (previously they were up to 196 mm Hg with valsalva), but today's gradient was 14 mm Hg (this not being valsalva). Final Reading Physician: Jayjay Ellsworth signed on 07/29/2017 10:59 AM Ordering Physician: Juan Bates Performed By: Mirian Christine RDCS
--- NOTE | 2017-07-29 12:19 | ASMTCMCOM ---
CM Note CM Note Notes: Dr. Adam cancelled home care for patient. [facility] notified. No further case management needs. CM available if needs change. Date Signed: 07/29/2017 12:18 PM Electronically Signed By:Helena Smart
[2017-07-29] MEDS: ENALAPRILAT DIHYDRATE 1.25 MG/ML VIAL IVP PRN (21:06)
[2017-07-29] MEDS: traMADol 50 MG TAB PO PRN (21:19)
[2017-07-30] MEDS ORDERED: METOPROLOL TARTRATE 5 MG/5 ML INJ IVP ONE (00:41)
[2017-07-30] MEDS: HEPARIN 5,000 UNIT/0.5 ML SYR SC SCH ×3 (05:27→20:52)
[2017-07-30] MEDS: ENALAPRILAT DIHYDRATE 1.25 MG/ML VIAL IVP PRN (05:27)
[2017-07-30] MEDS: traMADol 50 MG TAB PO PRN ×2 (05:42→20:51)
[2017-07-30 06:38] LABS: HEMATOCRIT 30.7 % (38.0-47.0); HEMOGLOBIN 10.4 g/dL (12.6-16.3)
--- NOTE | 2017-07-30 08:10 | SOAPPROG ---
SOAP Progress Note Assessment/Plan: Assessment: POD#5 Transaortic extended septal myectomy HOCM with severe LVOT obstruction, mitral DANNY and MR - Significant reduction in outflow tract gradient, DANNY and MR s/p extended septal myectomy. Weaned from CPB without difficulty. - CTs and Awires out. Acute blood loss anemia - Stable s/p 2u PRBC. Junctional rhythm, intermittent early postop - Tolerating escalating doses of BB well. Chronic dCHF, stage 2 - Care with pre-load. - BB uptitrated as tolerated. HTN - Suboptimal control with high dose BB. - Plan reintro of CCB as allowed by rhythm. DM 2, diet-controlled (HbgA1c of 6.9) - ISS for short-term monitoring Plan: Cont metoprolol tartrate 100mg BID. Consider switch back to Toprol. Add Calan SR 120 mg daily. Cards clearance for ongoing use antinodals, removal of Vwire backup capacity. Intensify pulm toilet. Cont inc activity as tolerated. Plan - Home tomorrow if medically stable. 07/30/17 08:09 Subjective: Pleased that ambulatory capacity already exceeds preop. Satisfactory analgesia. Eating well. No acute concerns. Objective: Vital Signs Temp Pulse Resp BP Pulse Ox 36.9 C 73 20 172/64 H 94 07/30/17 07:23 07/30/17 07:23 07/30/17 07:23 07/30/17 07:23 07/30/17 07:23 Laboratory Results 07/30/17 06:22 07/29/17 05:00 07/29/17 07/30/17 07/31/17 05:59 05:59 05:59 Intake Total 1580 530 Output Total 1300 1700 Balance 280 -1170 Holding SR wout ectopy or backup pacing. No chronotropic incompetence. Upward trending SBP with excellent diuresis. Min suppl O2. Below preop wt. Labs as expected. Physical Exam - Physical Exam General Appearance: alert, no apparent distress Respiratory: lungs clear (grossly) Cardiac/Chest: regular rate, rhythm, other (Sternum grossly stable. Sternotomy CDI. Vwires intact.) Abdomen: non-tender, soft Skin: warm/dry Extremities: other (no visible edema) ICD10 Worksheet Patient Problems: Problems Problem Status Onset Acute blood loss anemia Acute S/P ventricular septal myectomy Acute ~07/25/17 Acute chest pain Acute 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
[2017-07-30] MEDS: INSULIN REGULAR HUMAN 100 UNIT/ML SC SCH ×4 (08:25→21:32)
[2017-07-30] MEDS: PANTOPRAZOLE SODIUM 40 MG TAB PO SCH (08:29)
[2017-07-30] MEDS: ASPIRIN EC 81 MG TAB PO SCH (08:29)
[2017-07-30] MEDS: METOPROLOL TARTRATE 100 MG TAB PO SCH ×2 (08:29→20:51)
[2017-07-30] MEDS: PRAVASTATIN SODIUM 20 MG TAB PO SCH (08:29)
[2017-07-30] MEDS: SYSTANE ULTRA EYE DROPS EACHEYE SCH ×2 (08:35→21:32)
[2017-07-30] MEDS: SENNOSIDES/DOCUSATE SODIUM TAB PO SCH (08:37)
[2017-07-30] MEDS ORDERED: METOPROLOL SUCCINATE XR 50 MG TAB PO SCH (09:00)
[2017-07-30] MEDS ORDERED: VERAPAMIL 80 MG TAB PO SCH (09:00)
[2017-07-30] MEDS ORDERED: VERAPAMIL ER 120 MG TAB PO SCH (09:00)
--- NOTE | 2017-07-30 12:53 | SOAPPROG ---
SOAP Progress Note Assessment/Plan: Assessment/Plan: This is a 71 yr old with asymettric HOCM with significant gradient who underwent myomectomy and had substantial bradycardia and heart block on day 1 post op. however, she has recovered from the same and though she has LBBB, her HR is going above 100bpm. She is tolerating Metoprolol and CCB well. No chest pain. No recent heart block noted. Continue to monitor. if no heart block or need for pacing till tomorrow, may be able to discharge her to home with follow up with cardiology. 07/30/17 12:50 Subjective: Pt denies complain. No chest pain or pressure. Objective: Vital Signs Temp Pulse Resp BP Pulse Ox 36.8 C 54 L 18 94/64 L 96 07/30/17 11:30 07/30/17 11:30 07/30/17 11:30 07/30/17 11:30 07/30/17 11:30 Laboratory Results 07/30/17 06:22 07/29/17 05:00 07/29/17 07/30/17 07/31/17 05:59 05:59 05:59 Intake Total 1580 530 Output Total 1300 1700 Balance 280 -1170 Physical Exam - Physical Exam General Appearance: alert, no apparent distress EENT: PERRL/EOMI, normal ENT inspection Neck: non-tender, full range of motion Respiratory: lungs clear, normal breath sounds, No crackles, No rales Cardiac/Chest: regular rate, rhythm, No edema Abdomen: normal bowel sounds, non-tender, soft Skin: normal color, warm/dry ICD10 Worksheet Patient Problems: Problems Problem Status Onset Acute blood loss anemia Acute S/P ventricular septal myectomy Acute ~07/25/17 Acute chest pain Acute 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
[2017-07-30] MEDS ORDERED: SENNOSIDES/DOCUSATE SODIUM TAB PO PRN (21:00)
[2017-07-31] MEDS: HEPARIN 5,000 UNIT/0.5 ML SYR SC SCH (06:15)
[2017-07-31] MEDS: traMADol 50 MG TAB PO PRN ×3 (06:22→21:45)
[2017-07-31 06:36] LABS: HEMATOCRIT 30.2 % (38.0-47.0)
[2017-07-31 06:58] LABS: ANION GAP 8 mEq/L (8-16); CARBON DIOXIDE 27 mEq/l (22-31); CHLORIDE 101 mEq/L (97-110); CREATININE 0.6 mg/dL (0.6-1.0); GLOMERULAR FILTRATION RATE > 60; GLUCOSE 102 mg/dL (70-100); POTASSIUM 3.9 mEq/L (3.5-5.2); SODIUM 136 mEq/L (134-144)
[2017-07-31] MEDS: INSULIN REGULAR HUMAN 100 UNIT/ML SC SCH (07:56)
--- NOTE | 2017-07-31 08:06 | SOAPPROG ---
SOAP Progress Note Assessment/Plan: Assessment: POD#6 Transaortic extended septal myectomy HOCM with severe LVOT obstruction, mitral DANNY and MR - Significant reduction in outflow tract gradient, DANNY and MR s/p extended septal myectomy. Weaned from CPB without difficulty. - CTs and Awires out. Acute blood loss anemia - Stable s/p 2u PRBC. Junctional rhythm, intermittent early postop - Escalating doses of BB and CCB well tolerated. Chronic dCHF, stage 2 - Care with pre-load. - BB uptitrated as tolerated. HTN - Suboptimal control with high dose BB. - CCB added with good effect DM 2, diet-controlled (HbgA1c of 6.9) - No correctional needs. Monitoring to be stopped. Plan: Remove V wire. Resume home anti-HTN regimen with Toprol and Calan. Stop SSI and accuchecks. Shower. Wean O2. Dispo - Home tomorrow. 07/31/17 08:03 Subjective: Doing ok. Pleased that PPM not needed. Daily functional gains and feels that she 'll be ready for home tomorrow. +BM. Objective: Vital Signs Temp Pulse Resp BP Pulse Ox 37.0 C 69 18 166/77 H 93 07/31/17 04:00 07/31/17 04:00 07/31/17 05:05 07/31/17 04:00 07/31/17 05:05 Laboratory Results 07/31/17 06:30 07/31/17 06:30 07/30/17 07/31/17 08/01/17 05:59 05:59 05:59 Intake Total 530 990 Output Total 1700 2100 400 Balance -1170 -1110 -400 Holding SR with rates 60s-70s. Improved BP control on metop and calan. Auto-diuresing well. 0.3 kg below admit wt. Off and on O2, desatting when asleep. Labs ok. FSBG < 150s. - Pending Discharge Pending Discharge Within 24 Hours: Yes Pending Discharge Date: 08/01/17 Pending Discharge Time: 11:00 Physical Exam - Physical Exam General Appearance: alert, no apparent distress Respiratory: decreased breath sounds (bases, L>R) Cardiac/Chest: regular rate, rhythm, other (Sternum grossly stable. Sternotomy and CT sites healing well. Vwires x 3 intact.) Skin: warm/dry Extremities: other (no visible edema) ICD10 Worksheet Patient Problems: Problems Problem Status Onset Acute blood loss anemia Acute S/P ventricular septal myectomy Acute ~07/25/17 Acute chest pain Acute 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
[2017-07-31] MEDS: METOPROLOL SUCCINATE XR 50 MG TAB PO SCH ×2 (09:59→21:46)
[2017-07-31] MEDS: PRAVASTATIN SODIUM 20 MG TAB PO SCH (09:59)
[2017-07-31] MEDS: ASPIRIN EC 81 MG TAB PO SCH (09:59)
[2017-07-31] MEDS: VERAPAMIL ER 240 MG TAB PO SCH (09:59)
[2017-07-31] MEDS: SYSTANE ULTRA EYE DROPS EACHEYE SCH ×2 (10:00→21:47)
[2017-08-01] MEDS: traMADol 50 MG TAB PO PRN (05:41)
[2017-08-01 07:03] VITALS: RESP 18
--- NOTE | 2017-08-01 07:23 | SOAPPROG ---
SOAP Progress Note Assessment/Plan: POD #7: Transaortic extended septal myectomy Hypertrophic obstructive cardiomyopathy with severe left ventricular outflow obstruction, DANNY of the mitral valve with MR s/p extended septal myectomy - intra-op ECHO revealed no significant DANNY, minimal outflow tract obstruction and trace MR. - Stable Acute blood loss anemia - Stable s/p 2U PRBCs Bradycardia, intermittent - Resolved, tolerated anti-nodals CHF, stage 2, diastolic - Care with pre-load - Continue BB, other HF meds as tolerated by BP DM 2, diet-controlled (HbgA1c of 6.9) - Stable Disposition - Home today without services Subjective: comfortable. No complaints. Happy to be going home. Objective: Vital Signs Temp Pulse Resp BP Pulse Ox 36.7 C 66 18 148/64 H 95 08/01/17 07:01 08/01/17 07:01 08/01/17 07:01 08/01/17 07:01 08/01/17 07:01 Laboratory Results 07/31/17 06:30 07/31/17 06:30 07/31/17 08/01/17 08/02/17 05:59 05:59 05:59 Intake Total 990 1250 Output Total 2100 1500 Balance -1110 -250 Physical Exam - Physical Exam General Appearance: WD/WN, alert, no apparent distress EENT: No scleral icterus (R), No scleral icterus (L) Neck: normal inspection Respiratory: No respiratory distress Cardiac/Chest: regular rate, rhythm Abdomen: non-tender, soft, No distended Skin: normal color, warm/dry Extremities: No pedal edema Neuro/Psych: no motor/sensory deficits, alert, normal mood/affect, oriented x 3 ICD10 Worksheet Patient Problems: Problems Problem Status Onset Acute blood loss anemia Acute S/P ventricular septal myectomy Acute ~07/25/17 HTN (hypertension) Chronic Acute chest pain Acute 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
[2017-08-01] MEDS: SYSTANE ULTRA EYE DROPS EACHEYE SCH (09:43)
[2017-08-01] MEDS: PRAVASTATIN SODIUM 20 MG TAB PO SCH (09:43)
[2017-08-01] MEDS: VERAPAMIL ER 240 MG TAB PO SCH (09:43)
[2017-08-01] MEDS: ASPIRIN EC 81 MG TAB PO SCH (09:43)
[2017-08-01] MEDS: METOPROLOL SUCCINATE XR 50 MG TAB PO SCH (09:43)
--- NOTE | 2017-08-01 10:14 | PDHOMEO2F ---
Home Oxygen Face to Face Home Orders: I certify that a physician or a nurse practitioner or physician's medication assistant has had a [id number] encounter with this patient on the date of this order due to the diagnosis listed, which relates to the primary reason the patient requires home oxygen. Alternative treatments have been tried, or considered, and deemed ineffective. It is anticipated that supplemental oxygen will result in improvement with treatment. Home oxygen qualifying diagnosis: s/p septal myectomy Home oxygen secondary diagnosis: hypoxemia, atelectasis, SOB SpO2 on room air (%): 85 Frequency of home oxygen needed: continuous Home oxygen liters per minute: 3 Home oxygen delivery device: nasal cannula Concentrator: Yes E-tanks for mobility and back up: Yes If ordering portable O2, is the patient mobile in the home?: Yes I certify that, based on these findings, the home oxygen is medically necessary for this patient for the following length of time. Length of time home oxygen needed: 3 months
--- NOTE | 2017-08-01 10:16 | PDDCSUM ---
Discharge Summary Discharge Summary: ADMISSION DATE: 07/26/17 DISCHARGE DATE: 08/01/17 ADMISSION DX: 1. Hypertrophic obstructive cardiomyopathy 2. Systolic anterior motion of the mitral valve 3. Mitral regurgitation 4. Chronic diastolic congestive heart failure stage 2 5. Diabetes mellitus 2, diet-controlled 6. Hypertension, poorly controlled DISCHARGE DX: 1. Hypertrophic obstructive cardiomyopathy 2. Systolic anterior motion of the mitral valve 3. Mitral regurgitation 4. Chronic diastolic congestive heart failure stage 2 5. Diabetes mellitus 2, diet-controlled 6. Hypertension, poorly controlled 7. Acute blood loss anemia 8. Post-operative bradycardia and heart block PROCEDURES 07/26/17, Vernon Adam: 1. Transaortic extended septal myectomy HOSPITAL COURSE BY PROBLEM LIST 1. HOCM, mitral DANNY, and MR - s/p extended septal myectomy with significant reduction in outflow tract gradient, mitral DANNY, and MR. 2. Chronic diastolic congestive heart failure stage 2 - medically optimized. 3. Post-operative bradycardia and heart block - gradual resolution. Beta and calcium channel blockers tolerated. 4. Acute blood loss anemia - stable s/p 2 units of PRBCs. 5. DM 2 - stable. 6. Hypertension - BB and CCB restarted with blood pressure at baseline. CONDITION Good DISPOSITION Home, self-care ACTIVITY Pt was instructed on sternal precautions, activity limitations, and which problems to call [facility] with. Please see Discharge Plan in chart for specifics. MEDICATIONS New 1. Acetaminophen [Tylenol 325mg (*)] 325 - 650 mg PO Q4HRS PRN 2. traMADol [Ultram 50 mg (*)] 50 - 100 mg PO Q4HRS PRN 3. O2, 3L, continuous Continue: 1. Aspirin EC [Aspirin EC 81 mg (*)] 81 mg PO DAILY 2. Herbals/Supplements -Info Only 1 ea PO DAILY 3. Metoprolol Succinate Xr [Toprol Xl 50 mg (*)] 50 mg PO BID 4. Simvastatin 10 - 20 mg PO DAILY 5. Verapamil ER [Calan SR/ER 240MG (*)] 240 mg PO DAILY 6. Albuterol [Proventil Inhaler HFA (*)] 1 - 2 puffs IH Q4H PRN PENDING STUDIES/LABS 1. CXR prior to surgical follow-up F/U APPOINTMENTS 1. Vernon Adam 08/09/17, 9:30 AM
[2017-08-01 11:25] VITALS: BP 134/66; PULSE 70; TEMP 98.6; O2SAT 95
--- NOTE | 2017-08-01 12:46 | ASMTCMCOM ---
CM Note CM Note Notes: Patient to discharge home Independent with no additional Case management needs apparent at this time. Patient will follow with Cardiac rehab.. Date Signed: 08/01/2017 12:46 PM Electronically Signed By:Sue Ling
--- NOTE | 2017-08-01 17:38 | ASDISCHSUM ---
Discharge Information Plan Status:Home with No Needs Medically Cleared to Leave: Discharge Date:08/01/2017 01:03 PM CM D/C Disposition:Home, Routine, Self-Care ADT D/C Disposition:Home, Routine, Self-Care Projected Discharge Date:08/01/2017 12:00 AM Transportation at D/C:Family Discharge Delay Reason: Follow-Up Date:08/01/2017 12:00 AM Discharge Slot: Final Diagnosis: Placement Information Patient Contact Information Contact Name:ANNALEE Relationship: Address:[address] Work Phone: City:[place] Alternate Phone: [facility]/Zip Code:[place] [address] Email: Financial Information Financial Class:Medicare Advantage Plans Primary Plan Desc:[facility] [employer] Primary Plan Number:[id number] Secondary Plan Desc: Secondary Plan Number: Assessment Information [facility] Initial CM Assessment Living Arrangements What is your living Answers: With Spouse arrangement? Who do you live with? Case Management Evaluation Functional: Able to Answers: No Notes: will need HC Services return Home with Prior Level of Function/Care Functional: ADL / IADL Answers: Chronic Illness Performance Deficits Due to: Deconditioning Discharge Plan Comments Coordination Status Comments Notes: 71yo Yoruba Speaking female admitted for SOB, MR, Cardiomyopathy, HTN, HLD, DM-2. Has a hx of breast ca, obesity. Tx= Septal myectomy and MVR. Therapies to eval for D/C needs. CM to follow Date Signed: 07/26/2017 03:20 PM Electronically Signed By:Elida Ventura [facility] CM Progress Note CM Note CM Note Notes: Spoke with patient and her daughter re: d/c plan. PT/OT have recommended patient have home health care for nursing and physical therapy. Spoke with [facility] and they have accepted patient. They will follow her progress on [facility].CM will follow. Date Signed: 07/28/2017 05:25 PM Electronically Signed By:Helena Smart [facility] CM Progress Note CM Note CM Note Notes: Dr. Adam cancelled home care for patient. [facility] notified. No further case management needs. CM available if needs change. Date Signed: 07/29/2017 12:18 PM Electronically Signed By:Helena Smart [facility] CM Progress Note CM Note CM Note Notes: Patient to discharge home Independent with no additional Case management needs apparent at this time. Patient will follow with Cardiac rehab.. Date Signed: 08/01/2017 12:46 PM Electronically Signed By:Sue Ling Intervention Information Intervention Type:*IM-Signed Date of Service:07/28/2017 12:26 PM Patient Type:Inpatient Staff Member:Lisa Mathew Hours: Discipline: Severity: Comment:
== END 2017-08-01 13:03 | disposition home or self-care (01) | DRG 229 ==
LOC: EDBD → F2W 11:36 → F2N 17:44 → F2W 07-29 15:30
PROVIDERS: ADMIT Thoracic Surgery (Cardiothoracic Vascular Surgery); ATTEND Thoracic Surgery (Cardiothoracic Vascular Surgery)
PROC: [UNRECOGNIZED PROCEDURE] (principal; 2017-07-26)
PROC: 5A1221Z Performance of Cardiac Output, Continuous (ICD-10-PCS; principal; 2017-07-26)
PROC: 07TD0ZZ Resection of Aortic Lymphatic, Open Approach (ICD-10-PCS; principal; 2017-07-26)
PROC: 30233N1 Transfusion of Nonautologous Red Blood Cells into Peripheral Vein, Percutaneous Approach (ICD-10-PCS; principal; 2017-07-26)
DX: I42.1 Obstructive hypertrophic cardiomyopathy (principal); D62 Acute posthemorrhagic anemia; I11.0 Hypertensive heart disease with heart failure; I50.32 Chronic diastolic (congestive) heart failure; R00.1 Bradycardia, unspecified; I45.9 Conduction disorder, unspecified; I34.0 Nonrheumatic mitral (valve) insufficiency; E11.9 Type 2 diabetes mellitus without complications; E78.5 Hyperlipidemia, unspecified; E66.9 Obesity, unspecified; Z85.3 Personal history of malignant neoplasm of breast
CPT/HCPCS: 82947-QW; 92526-GN; 92610-GN; 97116-GP; 97162-GP; 97165-GO; 97530-GP; 97535-GO; G8978-GP-CJ; G8979-GP-CI; G8980-GP-CI; G8987-GO-CM; G8988-GO-CJ; G8996-GN-CH; G8996-GN-CI; G8997-GN-CH; G8998-GN-CH; J0153; J0282; J0690; J1265; J1644; J1815; J1885; J2001; J2150; J2250; J2260; J2370; J2405; J2704; J2720; J2765; J2930; J3010; J7060; P9016; P9041

== ENCOUNTER 2017-08-02 11:50 | Inpatient (IN) | payer OTHER ==
--- NOTE | 2017-08-02 12:59 | EDPHY ---
H & P Stated Complaint: open heart surg 1 week ago/dc yesterday/n/v dizzy/no stool since tue - Personal History Current Tetanus/Diphtheria Vaccine: Unsure - Medical/Surgical History Hx Asthma: No Hx Chronic Respiratory Disease: No Hx Diabetes: Yes Hx Cardiac Disease: Yes Hx Renal Disease: No Hx Cirrhosis: No Hx Alcoholism: No Hx HIV/AIDS: No Hx Splenectomy or Spleen Trauma: No Other PMH: tachycardia/htn, breast CA with right mastectomy, DM type II, hyperlipidemia, CM, VHD - Social History Smoking Status: Never smoked <Abram Beltran A - Last Filed: 08/02/17 15:19> <Nilton Tellez - Last Filed: 08/03/17 00:14> Time Seen by Provider: 08/02/17 12:58 Constitutional: Initial Vital Signs Temperature (C) 36.8 C 08/02/17 11:53 Heart Rate 69 08/02/17 11:53 Respiratory Rate 20 08/02/17 11:53 Blood Pressure 170/67 H 08/02/17 11:53 O2 Sat (%) 96 08/02/17 11:53 O2 Delivery Mode Nasal Cannula O2 (L/minute) 2 Allergies/Adverse Reactions: No Known Allergies Allergy (Verified 08/02/17 11:52) Home Medications: Medication Instructions Recorded Aspirin EC [Aspirin EC 81 mg (*)] 81 mg PO DAILY 04/26/17 Herbals/Supplements -Info Only 1 ea PO DAILY 04/26/17 Metoprolol Succinate Xr [Toprol Xl 50 mg PO BID 04/26/17 50 mg (*)] Simvastatin 10 - 20 mg PO DAILY 04/26/17 Verapamil ER [Calan SR/ER 240MG 240 mg PO DAILY 04/26/17 (*)] Albuterol [Proventil Inhaler HFA 1 - 2 puffs IH Q4H PRN 07/19/17 (*)] Acetaminophen [Tylenol 325mg (*)] 325 - 650 mg PO Q4HRS PRN #0 tab 08/01/17 traMADol [Ultram 50 mg (*)] 50 - 100 mg PO Q4HRS PRN #40 tab 08/01/17 Medical Decision Making <Abram Beltran - Last Filed: 08/02/17 15:19> - Diagnostics Imaging: Discussed imaging studies w/ interactive media marketing strategist Radiologist <Nilton Tellez E - Last Filed: 08/03/17 00:14> - Diagnostics Imaging Results: Imaging Impressions Brain MRI 08/02/17 13:14 Impression: 1. Large acute/subacute right cerebellar infarct. 2. Atrophy with white matter change most likely related to chronic microvascular ischemic gliosis. Findings discussed with Nilton Tellez M.D., on August 02, 2017 at 1817. ED Course/Re-evaluation: CHIEF COMPLAINT: Weakness, AMS HISTORY OF PRESENT ILLNESS: This patient is a Irish-speaking 71 year old female arriving with her family complaining of weakness and altered mental status onset yesterday. She had transaortic surgery one week ago last Tuesday. Last night, she began feeling and acting strangely, and had low oxygen saturation. She had right-sided facial droop and slurred speech. Following her surgery, she was able to walk in PT, but now she is not able to stand up. She feels her body is shaky. She denies feeling of one-sided weakness. No chest pain, shortness of breath, fever, or other associated symptoms. HPI obtained primarily through contact center representative at bedside. REVIEW OF SYSTEMS: A 10 point review of systems was performed and is negative with the exception of the elements mentioned in the history of present illness. PHYSICAL EXAM: HR, BP, O2 Sat, RR. Temp noted General Appearance: Alert, well hydrated, appropriate, and non-toxic appearing. Head: Atraumatic without scalp tenderness or obvious injury Eyes: Pupils equal, round, reactive to light and accommodation, EOMI, no trauma , no injection. Ears: Clear bilaterally, no perforation, normal landmarks Nose: Atraumatic, no rhinorrhea, clear. Throat: There is no erythema or exudates, no lesions, normal tonsils, mucus membranes moist. Neck: Supple, nontender, no lymphadenopathy. Respiratory: No retractions, no distress, no wheezes, and no accessory muscle use. Lungs are clear to auscultation bilaterally. Cardiovascular: Regular rate and rhythm, no murmurs, rubs, or gallops. Bilateral carotid, radial, dorsalis pedis, and posterior tibial pulses intact. Good capillary refill all extremities. Gastrointestinal: Abdomen is soft, nontender, non-distended, no masses, no rebound, no guarding, no peritoneal signs. Musculoskeletal: Normal active ROM of all extremities, atraumatic. Neurological: Right-sided facial droop, slurred speech. Bilateral lower extremity weakness and pronator drift, right greater than left. Bilateral java programmer analyst weakness, right greater than left. Skin: No rashes, good turgor, no nodules on palpation. Past medical history: Tachycardia, Hypertension,Breast cancer, DM type II, Hyperlipidemia Past surgical history: Right mastectomy, transaortic surgery - septal myotomy. Family history: Noncontributory. Social history: Irish-speaking. Family at bedside. . DIAGNOSTICS/PROCEDURES/CRITICAL CARE TIME: The 12 lead EKG was interpreted by myself. See hard copy and/or "tracemaster" electronic copy for interpretation. DIFFERENTIAL DIAGNOSIS: The differential diagnosis for the patient's neurologic deficits included but was not limited to peripheral causes, central causes including CVA, TIA, electrolyte abnormalities and dehydration, cardiogenic causes, atypical causes like migraine syndrome. MEDICAL DECISION MAKIN71 year old female with history of recent transaortic surgery presents with neurologic deficits. Specifically, right-sided facial droop, slurred speech. Bilateral lower extremity weakness and pronator drift, right greater than left. Bilateral java programmer analyst weakness, right greater than left. Concern for stroke. Plan for MRI brain. The patient is concerned because she is claustrophobic. I discussed medical management of her claustrophobia and the importance of MRI scan. The patient agrees to MRI. Plan for labs including CBC, BMP, Troponin. She was evaluated earlier today by the cardiothoracic PA, they not think this is of cardiogenic etiology. Troponin elevated, but coming down from her recent cardiac surgery. 15:00 Patient is waiting for MRI. (Abram Beltran) 6:20 p.m. I received the results of the MRI. I discussed the case with Dr. Simon Marcos who will admit to the medical service. (Nilton Tellez) - Data Points Laboratory Results: Laboratory Results 08/02/17 12:45 08/02/17 12:45 08/02/17 08/02/17 12:45 12:45 WBC 8.54 10^3/uL 10^3/uL (3.80-9.50) RBC 3.59 10^6/uL L 10^6/uL (4.18-5.33) Hgb 10.7 g/dL L g/dL (12.6-16.3) Hct 32.3 % L % (38.0-47.0) MCV 90.0 fL fL (81.5-99.8) MCH 29.8 pg pg (27.9-34.1) MCHC 33.1 g/dL g/dL (32.4-36.7) RDW 14.6 % % (11.5-15.2) Plt Count 221 10^3/uL 10^3/uL (150-400) MPV 10.1 fL fL (8.7-11.7) Neut % (Auto) 83.5 % H % (39.3-74.2) Lymph % (Auto) 9.4 % L % (15.0-45.0) Reynolds % (Auto) 6.3 % % (4.5-13.0) Eos % (Auto) 0.1 % L % (0.6-7.6) Baso % (Auto) 0.1 % L % (0.3-1.7) Nucleat RBC Rel Count 0.0 % % (0.0-0.2) Absolute Neuts (auto) 7.13 10^3/uL H 10^3/uL (1.70-6.50) Absolute Lymphs (auto) 0.80 10^3/uL L 10^3/uL (1.00-3.00) Absolute Monos (auto) 0.54 10^3/uL 10^3/uL (0.30-0.80) Absolute Eos (auto) 0.01 10^3/uL L 10^3/uL (0.03-0.40) Absolute Basos (auto) 0.01 10^3/uL L 10^3/uL (0.02-0.10) Absolute Nucleated RBC 0.00 10^3/uL 10^3/uL (0-0.01) Immature Gran % 0.6 % % (0.0-1.1) Immature Gran # 0.05 10^3/uL 10^3/uL (0.00-0.10) Sodium 134 mEq/L mEq/L (134-144) Potassium 4.1 mEq/L mEq/L (3.5-5.2) Chloride 99 mEq/L mEq/L (97-110) Carbon Dioxide 23 mEq/l mEq/l (22-31) Anion Gap 12 mEq/L mEq/L (8-16) BUN 10 mg/dL mg/dL (7-23) Creatinine 0.5 mg/dL L mg/dL (0.6-1.0) Estimated GFR > 60 Glucose 124 mg/dL H mg/dL (70-100) Calcium 8.6 mg/dL mg/dL (8.5-10.4) Troponin I 0.074 ng/mL H ng/mL (0.000-0.034) Medications Given: Metoprolol Succinate (Toprol Xl) 50 mg PO BID NAVID Stop: 01/29/18 20:59 Last Admin: 08/02/17 21:25 Dose: 50 mg Discontinued Medications Lorazepam (Ativan Injection) 0.5 mg IVP EDNOW ONE Stop: 08/02/17 17:24 Last Admin: 08/02/17 17:23 Dose: 0.5 mg Departure <Abram Beltran - Last Filed: 08/02/17 15:19> <Nilton Tellez - Last Filed: 08/03/17 00:14> - Departure Disposition: [facility] Inpatient Acute Clinical Impression: CVA (cerebral vascular accident) Qualifiers: CVA mechanism: unspecified Qualified Code(s): I63.9 - Cerebral infarction, unspecified Condition: Fair Report Scribed for: Abram Beltran Report Scribed by: Jeanne Herzog Date of Report: 08/02/17 Time of Report: 15:20 <Abram Beltran - Last Filed: 08/02/17 15:19>
[2017-08-02 13:20] LABS: % IMMATURE GRANULYOCYTES 0.6 % (0.0-1.1); ABSOLUTE IMMATURE GRANULOCYTES 0.05 10^3/uL (0.00-0.10); ADD DIFF? NO; ADD MORPH? NO; ADD SCAN? NO; ATYPICAL LYMPHOCYTE FLAG 30 (0-99); FRAGMENT RBC FLAG 0 (0-99); HEMATOCRIT 32.3 % (38.0-47.0); HEMOGLOBIN 10.7 g/dL (12.6-16.3); LEFT SHIFT FLG 0 (0-99); LIPEMIA HEMOLYSIS FLAG 80 (0-99); MEAN CELL HEMOGLOBIN 29.8 pg (27.9-34.1); MEAN CELL HEMOGLOBIN CONCENTR. 33.1 g/dL (32.4-36.7); MEAN PLATELET VOLUME 10.1 fL (8.7-11.7); PLATELET CLUMPS FLAG 10 (0-99); PLATELET COUNT 221 10^3/uL (150-400); RED BLOOD CELL COUNT 3.59 10^6/uL (4.18-5.33); RED CELL DISTRIBUTION WIDTH 14.6 % (11.5-15.2)
[2017-08-02 13:30] LABS: ANION GAP 12 mEq/L (8-16); CALCIUM 8.6 mg/dL (8.5-10.4); CARBON DIOXIDE 23 mEq/l (22-31); CHLORIDE 99 mEq/L (97-110); CREATININE 0.5 mg/dL (0.6-1.0); GLOMERULAR FILTRATION RATE > 60; GLUCOSE 124 mg/dL (70-100); POTASSIUM 4.1 mEq/L (3.5-5.2); SODIUM 134 mEq/L (134-144)
[2017-08-02 13:42] LABS: TROPONIN I 0.074 ng/mL (0.000-0.034)
[2017-08-02] MEDS ORDERED: LORazepam 2 MG/ML INJ ONE (17:21)
[2017-08-02] MEDS ORDERED: LORazepam 2 MG/ML INJ IVP ONE (17:23)
[2017-08-02] MEDS ORDERED: ALBUTEROL 200 PUFFS/18 GM MDI IH PRN (20:07)
[2017-08-02] MEDS ORDERED: ONDANSETRON 4 MG/2 ML VIAL IVP PRN (20:11)
[2017-08-02] MEDS ORDERED: ONDANSETRON DISINTEGRATING 4 MG TAB PO PRN (20:11)
--- NOTE | 2017-08-02 21:18 | GHP ---
[f rep st] HISTORY AND PHYSICAL DATE OF ADMISSION: 08/02/2017 This patient is a pleasant 71-year-old female, with a history of HOCM, who was discharged from the [facility] yesterday following a septal myotomy, performed by Dr. Adam. This is a transaortic procedu re, done by midline sternotomy. Her postoperative course is notable for postoperative bradycardia, but otherwise unremarkable. She returned home with oxygen, and then subsequently this morning devel oped lethargy and bilateral leg weakness. Also she began feeling and acting strangely. She had rig ht-sided facial droop and slurred speech, especially a loss of function. She has been unable to sta nd. History was obtained via her son, who is functioning as an diplomatic interpreter. When I am seeing the patient, she says she may or may not have had palpitations, but has otherwise d one okay until today when she just had this weakness. REVIEW OF SYSTEMS: Complete 10-point review of systems conducted, and negative except as in the HPI . PAST MEDICAL HISTORY: 1. HOCM. 2. History of right mastectomy. 3. Tonsillectomy. 4. . 5. Subvalvular aortic stenosis and moderate MR. ALLERGIES: No known drug allergies. HOME MEDICATIONS: Metoprolol, verapamil, aspirin, simvastatin, albuterol, acetaminophen, tramadol. FAMILY HISTORY: Lives with a son in [facility]. No tobacco. No alcohol. FAMILY HISTORY: Reviewed and unremarkable. Son is healthy at the bedside. PHYSICAL EXAMINATION: PRESENTING VITALS: Temp 36.8, blood pressure 170/67, pulse 69, breathing 20 times a minute, 96% on 2 L. GENERAL: No acute distress. HEENT: Sclerae anicteric. Oropharynx cl ear. Mucous membranes are moist. NECK: Supple without lymphadenopathy or JVD. LUNGS: Clear to a uscultation bilaterally. HEART: S1, S2. Midline sternotomy is clean, dry, and intact. NEUROLOGIC : The patient has left-sided cerebellar deficits. She is unable to repeat phrases. Their son speepi ks to her in Persian, and has bilateral leg weakness. I discussed the case with Dr. Abram Beltran. DIAGNOSTIC DATA: Labs: White count 8.5, hematocrit 32.3, platelets are 221,000. Sodium 134, potas sium 4.1, chloride 99, bicarb 23, BUN 10, creatinine 0.5, glucose 124, troponin 0.074. MRI of brain shows a large acute/subacute right cerebellar infarct. ASSESSMENT AND PLAN: A 71-year-old female, post cardiac surgery stroke. 1. Stroke. She has contraindication to lytics, both on time and previous surgery. She is on an as pirin and a statin. I will check a lipid panel in the morning. Dr. Adam saw the patient in the ER , and said they felt they were unrelated, which is probably true. I do think it is reasonable to ch brittany an echo to make sure that there is no thrombus. Also follow on telemetry to see there is any ev idence of arrhythmia. I do not think that bradycardia would have caused this. 2. Recent surgery. The patient is hemodynamically intact. I think her troponin is appropriately e levated for having had a cardiac myotomy last week. 3. Diabetes. Apparently diabetes is diet controlled. Nonfasting blood sugar is only modestly elev ated. We will follow. 4. Prophylaxis. Pharmacologic prophylaxis indicated. DISPOSITION: Inpatient status. /[id number]/MODL
[2017-08-02] MEDS: METOPROLOL SUCCINATE XR 50 MG TAB PO SCH (21:25)
[2017-08-03] MEDS: ACETAMINOPHEN 325 MG TAB PO PRN (04:05)
[2017-08-03 04:55] LABS: ANION GAP 9 mEq/L (8-16); CALCIUM 8.5 mg/dL (8.5-10.4); CARBON DIOXIDE 25 mEq/l (22-31); CHLORIDE 102 mEq/L (97-110); CREATININE 0.6 mg/dL (0.6-1.0); GLOMERULAR FILTRATION RATE > 60; GLUCOSE 89 mg/dL (70-100); POTASSIUM 3.7 mEq/L (3.5-5.2); SODIUM 136 mEq/L (134-144)
[2017-08-03 05:59] LABS: % IMMATURE GRANULYOCYTES 0.3 % (0.0-1.1); ABSOLUTE IMMATURE GRANULOCYTES 0.02 10^3/uL (0.00-0.10); ADD DIFF? NO; ADD MORPH? NO; ADD SCAN? NO; ATYPICAL LYMPHOCYTE FLAG 20 (0-99); FRAGMENT RBC FLAG 30 (0-99); HEMATOCRIT 29.8 % (38.0-47.0); HEMOGLOBIN 9.9 g/dL (12.6-16.3); LEFT SHIFT FLG 0 (0-99); LIPEMIA HEMOLYSIS FLAG 80 (0-99); MEAN CELL HEMOGLOBIN 30.1 pg (27.9-34.1); MEAN CELL HEMOGLOBIN CONCENTR. 33.2 g/dL (32.4-36.7); MEAN CELL VOLUME 90.6 fL (81.5-99.8); PLATELET CLUMPS FLAG 20 (0-99); PLATELET COUNT 232 10^3/uL (150-400); RED BLOOD CELL COUNT 3.29 10^6/uL (4.18-5.33); RED CELL DISTRIBUTION WIDTH 14.7 % (11.5-15.2)
[2017-08-03 06:04] LABS: CHOLESTEROL 104 mg/dL (140-220); CHOLESTEROL/HDL RATIO 4.73 RATIO (1.00-4.44); HIGH DENSITY LIPOPROTEIN 22 mg/dL (40-85); LDL/HDL RATIO 2.73 RATIO (1.00-3.22); LOW DENSITY LIPOPROTEIN 60 mg/dL (80-100); NON-HIGH DENSITY LIPOPROTEIN 82 mg/dL (90-129); TRIGLYCERIDE 112 mg/dL (35-135); VERY LOW DENSITY LIPOPROTEINS 22 mg/dL (8-25)
[2017-08-03] MEDS ORDERED: Herbals/Supplements -Info Only PO SCH (09:00)
[2017-08-03] MEDS: METOPROLOL SUCCINATE XR 50 MG TAB PO SCH ×2 (09:10→21:06)
[2017-08-03] MEDS: ASPIRIN EC 81 MG TAB PO SCH (09:11)
[2017-08-03] MEDS: ATORVASTATIN CALCIUM 10 MG TAB PO SCH (09:11)
[2017-08-03] MEDS: ENOXAPARIN 40 MG/0.4 ML SYR SC SCH (09:11)
[2017-08-03] MEDS: VERAPAMIL ER 240 MG TAB PO SCH (09:50)
--- NOTE | 2017-08-03 13:22 | ECHO ---
[id number] + + [address] : : [place] [address] : : [phone] + + Adult Echocardiographic Report + + :Name: Radha BONDS Date: 08/03/2017 11:51 AM : : Hospital Admission Number: [id number] L ocation: 215: :: 1945 Gender: Female Height: 6 1 in : :Age: 71 yrs Race: HL,PTNP,OTH Weight: 1 70 lb : :Reason For Study: Eval for Embolic Source : : BSA: 1.8 meters2 : :History: Recent cardiac surgery, Now presenting cerebellar CVA : + + Left Ventricle The left ventricular ejection fraction is normal. Conclusion This is a limited echo to evaluate for cardiac source of emboli. There is no obvious source of cardiac emboli. Clinical correlation is recommended. Technically limited study with poor acoustic windows. The left ventricular ejection fraction is normal. Thre is moderate LVH. No obvious cardiac source for embolism. Consider LEXY if there is a high clinical index of suspicion. Final Reading Physician: Jayjay Herzog signed on 08/03/2017 01:21 PM Ordering Physician: Mauricio Marcos Performed By: Slick Torres, ZENYCS
--- NOTE | 2017-08-03 15:17 | GCON ---
[f rep st] CONSULTATION NEUROLOGY CONSULT DATE OF CONSULTATION: 08/03/2017 REFERRING PHYSICIAN: Mauricio Marcos MD CHIEF COMPLAINT: Stroke. HISTORY OF PRESENT ILLNESS: The patient is a very pleasant 71-year-old lady with a history of hypertrophic obstructive cardiomyopathy who was discharged from the hospital on August 01, 2017 following a septal myotomy for her HOCM. She had a little bit of postoperative bradycardia. Otherwise, there is no mention of any atrial fibrillation, etc. She did well and returned home with oxygen; however, on the morning of August 02, the day after discharge, she developed lethargy and a feeling of weakness, mainly in her legs. Apparently she was acting oddly, and some slurred speech, along with right-sided facial weakness and ataxia was noted, which initiated the patient to come back to the emergency department. She had a brain MRI yesterday upon admission, which I reviewed, showing a fairly significant right cerebellar infarct in terms of the size. She has done well overnight, without any deterioration or worsening of symptoms. REVIEW OF SYSTEMS: A 10-point review of systems was not able to be done completely due to language barrier. The patient knows very little Turkmen. There was no superintendent plant present. For past medical history, social history, family history, home medications, and allergies, please see Dr. Marcos's history and physical. PHYSICAL EXAM: VITAL SIGNS: Blood pressure is 130/67, temperature 36.8, O2 saturation 95%, heart rate 63. GENERAL: No acute distress, very pleasant lady. Of note, the exam could not be performed thoroughly again due to the language barrier. On observation, she appeared to have some right facial weakness. During pronator drift testing, there was some ataxia in the right arm as she moved into different postures. IMPRESSION AND PLAN: 1. Right cerebellar stroke. At this point, the patient's stroke is cryptogenic. She had an echocardiogram last evening, which did not show any obvious source of cardiac emboli. There has been no atrial fibrillation on telemetry that I am aware of at this point. We will complete the evaluation with CT angiography of the head and neck. In addition, due to the size and location of her stroke, we will transfer her to the intensive care unit for more frequent neuro-checks in the event she has swelling in the posterior fossa. In that regard, I have spoken to the Neurosurgery service to consult on her in case she does have swelling, and the possibility of needing an emergent posterior craniotomy for decompression. They are aware and will consult on the patient. I appreciate their help. She is on aspirin daily. I think this can be continued for the time being, unless we see any indications for oral anticoagulation. Otherwise, she will need PT, OT and speech to help with therapies and disposition. No further recommendations now. I will follow up on the above. If she has acute decompensation - the plan will be to call neurosurgery along with a stat non-contrast head CT. Thank you for this consultation. Billing information: seventy total minutes floor time today reviewing previous hospitalization records, current hospitalization records, imaging, coordinating care with Hospital Medicine, and in direct counseling with the patient and her . /[id number]/MODL MTDD
[2017-08-03] MEDS ORDERED: IOPAMIDOL (ISOVUE 370) 100 ML BTL IV ONE (15:36)
--- NOTE | 2017-08-03 15:49 | HOSPPROG ---
Hospitalist Progress Note Assessment/Plan: * large cerebellar CVA * Echo looked okay * Neurology following * Transferring to ICU for closer monitoring in case of swelling * Neurosurgery was consulted by Neurology * recent myomectomy for HOCUM Subjective: No new events Objective: Vital Signs Temp Pulse Resp BP Pulse Ox 36.7 C 53 L 13 134/45 H 100 08/03/17 15:15 08/03/17 15:15 08/03/17 15:15 08/03/17 15:15 08/03/17 15:15 Laboratory Results 08/03/17 03:52 08/03/17 03:52 08/02/17 08/03/17 08/04/17 05:59 05:59 05:59 Intake Total 200 Output Total 250 350 Balance -50 -350 - Physical Exam Constitutional: no apparent distress, appears nourished, not in pain Eyes: anicteric sclera, EOMI Ears, Nose, Mouth, Throat: moist mucous membranes, hearing normal Cardiovascular: regular rate and rhythym, no murmur, rub, or gallop Respiratory: no respiratory distress Skin: warm Neurologic: AAOx3, other (Right-sided weakness) ICD10 Worksheet Patient Problems: Problems Problem Status Onset CVA (cerebral vascular accident) Acute Acute blood loss anemia Acute Acute chest pain Acute S/P ventricular septal myectomy Acute ~07/25/17 HTN (hypertension) Chronic 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
--- NOTE | 2017-08-04 04:54 | GCON ---
[f rep st] CONSULTATION INPATIENT CONSULTATION DATE OF CONSULTATION: 08/03/2017 HISTORY OF PRESENT ILLNESS: The patient is a 71-year-old female, who underwent a septal myotomy last week and was discharged home on August 01, 2017. Yesterday, she was experiencing vomiting and difficulty with walking and her zsvnbftz-bd-qai states that her whole body was shaking. She was brought to the emergency room and was found to have a large right cerebellar infarct. She has remained mostly neurologically intact today aside from unable to state what month it is. REVIEW OF SYSTEMS: A 10-point review of systems was reviewed and negative aside from what was mentioned in the HPI. PAST MEDICAL HISTORY: Includes hypertension, diabetes, aortic stenosis, cardiomyopathy. PAST SURGICAL HISTORY: Includes a right mastectomy, tonsillectomy, . SOCIAL HISTORY: Patient does drink a small alcoholic beverage socially. She denies cigarette smoking. She denies drug use. FAMILY HISTORY: The patient's mother had a stroke. The patient's father had lung problems. MEDICATIONS: Include tramadol, Tylenol, herbal supplements, verapamil ER, simvastatin, Toprol, aspirin, and albuterol. ALLERGIES: The patient has no known allergies. PHYSICAL EXAMINATION: VITAL SIGNS: Blood pressure is 135/45, heart rate is 53 , respiratory rate is 13, oxygenation is 100% on 2 L nasal cannula, temperature is 36.7 degrees Celsius. HEENT. Head is normocephalic and atraumatic. Pupils are equal, round, and reactive to light. EOMI is intact. Full visual frost by confrontation. The patient does have a mild dysmetria noted. RESPIRATORY: Deferred. CARDIAC: Deferred. ABDOMEN: Soft and nontender. GENITOURINARY: Deferred. RECTAL: Deferred. NEUROLOGIC: The patient is awake and alert. She is oriented to herself. She knows she is in [place]. She is able to pick the year when given choices. She is unable to determine what month it is. She denies any headache. Her memory is intact to immediate past and current events. Speech: No aphasia or dysphonia. Cranial nerves 2-12 are grossly intact aside from what was previously mentioned. Motor: The patient has 5/5 strength in all muscle groups in bilateral upper and lower extremities to include deltoids, biceps, triceps, brachioradialis, wrist flexion, extensors, intensive care anaesthetist, intrinsic fingers, iliopsoas, quadriceps, hamstrings, plantar flexion, dorsiflexion, EHL testing. Sensation is grossly intact to light touch throughout all dermatomal distributions in bilateral lower extremities. Reflexes biceps, triceps, brachioradialis, knee jerk, ankle jerk are 2+ out of 4. Toes are downgoing bilaterally. Zoraida sign is negative. Babinski is negative, and there is no evidence of clonus. LABORATORY STUDIES: The patient's white blood cells are 7.72, hemoglobin is 9.9 , hematocrit is 29.8, platelet count is 232. Sodium 136, potassium 3.7, BUN is 9, creatinine 0.6, glucose is 89. DIAGNOSTIC IMAGING: MRI of the brain performed without IV contrast on August 02, 2017 demonstrated a large acute subacute right cerebellar infarct. CTA Head performed demonstrated 2 small aneurysms right FLUID DYNAMICIST, 1 small aneurysm right M3 and tortuosity of left CCA ASSESSMENT AND PLAN: The patient is a very pleasant 71-year-old Slovak- speaking only female who was discharged home on August 01, 2017, following a septal myotomy. She presented to the emergency room yesterday with vomiting and inability to walk. Her yczubdld-aq-uxj states that her whole body was shaking as well. She was found to have a large acute subacute right cerebellar infarct, and Neurology has asked us to see this patient in the periphery. Currently, the patient is neurologically intact aside from being able to state the correct month. Incidentally, CTA of the head found 3 small aneurysms that do not require surgical intervention. She will continue to be monitored in the intensive care unit due to the size of her infarct. From a neurosurgical standpoint it is okay for her to continue her daily aspirin and it is okay for her to have any coagulation therapy that would be recommended at this time. Please call Neurosurgery with any traumatic change in neuro exam. We will follow this patient peripherally at this time. Patient was seen and examined by myself and Dr. Homero Fairchild. The patient 's ICU room 253 today, August 03, 2017 at 1700. /[id number]/MODL MTDD
[2017-08-04] MEDS: ENOXAPARIN 40 MG/0.4 ML SYR SC SCH (08:13)
[2017-08-04] MEDS: ATORVASTATIN CALCIUM 10 MG TAB PO SCH (08:14)
[2017-08-04] MEDS: METOPROLOL SUCCINATE XR 50 MG TAB PO SCH ×2 (08:14→20:28)
[2017-08-04] MEDS: ASPIRIN EC 81 MG TAB PO SCH (08:14)
[2017-08-04] MEDS: VERAPAMIL ER 240 MG TAB PO SCH (08:16)
--- NOTE | 2017-08-04 11:03 | NEUROPROG ---
Assessment: 1. Cryptogenic large right cerebellar infarct 2. Intracranial aneurysms 35 total minutes floor time; this include reviewing angiography, coordinating care and in direct counseling with the patient In summary, CT angiography of the head and neck did not show any luminal thrombosis or dissection. She did have some small incidental aneurysms found. Neurosurgery has reviewed and do not need treatment now. Echo did not show a cardiac source for thrombus. No atrial fibrillation on telemetry. Going forward, peak post stroke edema occurs 3-5 days after stroke. The head CT without contrast this morning did not show any significant deterioration, swelling with obstructive hydrocephalus or hemorrhage. We will repeat head CT without contrast tomorrow morning to assess for any significant edema or hemorrhage. The patient has any acute decompensation, the plan will be to call Neurosurgery and order a head CT without contrast stat - in the scenario that she needs emergent decompressive craniectomy. She can see on anti-platelet therapy for neurosurgery. There is no indication for oral anticoagulation at this point. She needs to stay in the ICU for frequent neuro checks. Subjective: No changes Objective: Vital Signs Temp Pulse Resp BP Pulse Ox 36.7 C 78 20 121/50 H 99 08/04/17 07:00 08/04/17 09:00 08/04/17 09:00 08/04/17 09:00 08/04/17 09:00 Laboratory Results 08/03/17 03:52 08/03/17 03:52 08/03/17 08/04/17 08/05/17 05:59 05:59 05:59 Intake Total 200 600 Output Total 250 1400 Balance -50 -800 No convulsive activity my presence. Allergies/Adverse Reactions: No Known Allergies Allergy (Verified 08/02/17 11:52)
[2017-08-04] MEDS ORDERED: PNEUMOC 13-VAL CONJ-DIP CRM/PF 0.5 ML SYR IM ONE (12:46)
--- NOTE | 2017-08-04 16:11 | GCON ---
[f rep st] CONSULTATION CRITICAL CARE CONSULT DATE OF CONSULTATION: 08/04/2017 HISTORY OF PRESENT ILLNESS: This patient is a 71-year-old Mongolian-speaking lady who had a hypertroph ic obstructive cardiomyopathy and underwent a septal myotomy for this and was discharged from the [facility] on August 01, 2017. Her hospital course at that time was fairly unremarkable other than a li ttle bit of postoperative bradycardia. She had no atrial fibrillation and did well, returning home w ith oxygen. The day after discharge, however, she developed lethargy and weakness, primarily in her legs, with instability. She had mental status changes and slurred speech on the day of admission on 08/03, was brought to the hospital and found to have a fairly large cerebellar stroke. She otherwise was fine. REVIEW OF SYSTEMS: Otherwise negative. PAST MEDICAL HISTORY: Includes: 1. Hypertrophic obstructive cardiomyopathy. 2. Right mastectomy. 3. Tonsillectomy. 4. . 5. Moderate mitral regurgitation. HOME MEDICATIONS: Include metoprolol, verapamil, aspirin, simvastatin, albuterol, Tylenol and tramad ol. SOCIAL HISTORY: She is a nonsmoker. No alcohol or IV drug use. FAMILY HISTORY: Unremarkable. CURRENT MEDICATIONS: Include Tylenol, Ventolin, aspirin, Lipitor, Lovenox, Toprol, Zofran, tramadol, verapamil. PHYSICAL EXAM: VITAL SIGNS: She was afebrile with a blood pressure of 147/59, heart rate 71, respir ations 20, oxygen saturation 98% on 3 L nasal cannula. GENERAL: She appeared to be a pleasant woman . Her daughter was acting as an line up worker. She was in no apparent distress. Alert and oriented x 3 and spoke in full sentences. She was obese. HEENT: Pupils equally round and reactive to light. Nonicteric and noninjected. Mucous membranes are moist without erythema or exudate. NECK: Supple w ithout adenopathy or jugular vein distention. LUNGS: Breath sounds were clear to auscultation bilat erally without wheezes, rubs, or rales. HEART: Sounds were distant, but had a regular rate and rhyt hm without murmurs, rubs, gallops. ABDOMEN: Soft, nontender, nondistended without hepatosplenomegal y. EXTREMITIES: Show no clubbing, cyanosis, or edema. NEUROLOGIC: She was nonfocal. Cranial nerv es were intact. Strength was at least 4 or 5/5 in a sitting position. She apparently was still unst able on her legs when walking with Physical Therapy. SKIN: Warm and dry without evidence of rash. OBJECTIVE DATA: Includes a white count of 7.7, hematocrit of 30, platelets of 232. Basic metabolic panel was unremarkable. ASSESSMENT AND PLAN: Acute cerebellar infarct of uncertain etiology. I think it is not very likely to be related to her recent surgery, although difficult to rule that out. She has an echocardiogram as well as angiograms that do not show any obvious sources. She will need ongoing physical therapy. She has been followed by Neurology and will need ongoing neuro checks to be able to respond to any o ther acute changes. /[id number]/MODL
--- NOTE | 2017-08-04 20:11 | HOSPPROG ---
Hospitalist Progress Note Assessment/Plan: * large cerebellar CVA * Echo looked okay * Neurology following * Transferring to ICU for closer monitoring in case of swelling * Neurosurgery was consulted by Neurology * recent myomectomy for HOCUM Subjective: right leg weaknes. no new complaints Objective: Vital Signs Temp Pulse Resp BP Pulse Ox 38.2 C 61 16 110/45 L 97 08/04/17 16:00 08/04/17 16:00 08/04/17 16:00 08/04/17 16:00 08/04/17 16:00 Laboratory Results 08/03/17 03:52 08/03/17 03:52 08/03/17 08/04/17 08/05/17 05:59 05:59 05:59 Intake Total 200 600 500 Output Total 250 1400 450 Balance -50 -800 50 - Physical Exam Constitutional: no apparent distress, appears nourished, not in pain Eyes: PERRL, anicteric sclera Ears, Nose, Mouth, Throat: moist mucous membranes, hearing normal, ears appear normal, no oral mucosal ulcers Cardiovascular: regular rate and rhythym, no murmur, rub, or gallop Respiratory: no respiratory distress, no rales or rhonchi, clear to auscultation Gastrointestinal: normoactive bowel sounds, soft, non-tender abdomen, no palpable masses Neurologic: AAOx3, other (right leg weaknes, right dysmetria) Psychiatric: interacting appropriately, not anxious, not encephalopathic, thought process linear ICD10 Worksheet Patient Problems: Problems Problem Status Onset CVA (cerebral vascular accident) Acute Acute blood loss anemia Acute Acute chest pain Acute S/P ventricular septal myectomy Acute ~07/25/17 HTN (hypertension) Chronic 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
[2017-08-04] MEDS: traMADol 50 MG TAB PO PRN (20:28)
[2017-08-05] MEDS: ATORVASTATIN CALCIUM 10 MG TAB PO SCH (09:13)
[2017-08-05] MEDS: VERAPAMIL ER 240 MG TAB PO SCH (09:24)
[2017-08-05] MEDS: ENOXAPARIN 40 MG/0.4 ML SYR SC SCH (09:25)
[2017-08-05] MEDS: ASPIRIN EC 81 MG TAB PO SCH (09:25)
[2017-08-05] MEDS: METOPROLOL SUCCINATE XR 50 MG TAB PO SCH ×2 (09:25→22:44)
--- NOTE | 2017-08-05 12:42 | NEUROPROG ---
Assessment: 1. Cryptogenic large right cerebellar infarct 2. Intracranial aneurysms 35 total minutes floor time; this include reviewing angiography, coordinating care and in direct counseling with the patient In summary, CT angiography of the head and neck did not show any luminal thrombosis or dissection. She did have some small incidental aneurysms found. Neurosurgery has reviewed and do not need treatment now. Echo did not show a cardiac source for thrombus. No atrial fibrillation on telemetry. Going forward, peak post stroke edema occurs 3-5 days after stroke. The head CT without contrast this morning did not show any significant deterioration, swelling with obstructive hydrocephalus or hemorrhage. We will repeat head CT without contrast tomorrow morning to assess for any significant edema or hemorrhage. PLAN: 1. Keep patient in ICU for q.1 hour neuro checks 2. If any acute deterioration - please call Neurosurgery and order repeat head CT without contrast stat (as she may develop swelling with hydrocephalus and need decompressive craniectomy) 3. Case discussed with cardiothoracic surgery, the plan will be to start oral anticoagulation 14 days after stroke onset which will be 08/16/2017, she then can finish a course of oral anticoagulation per cardiothoracic surgery protocol for approximately 12 weeks 4. Repeat head CT without contrast has been ordered for tomorrow at 6:00 a.m. 5. As noted above, peak swelling occurs from days 3-5 typically after stroke. Therefore, the will plan will be to keep her in ICU for frequent neuro checks during this period of time. Subjective: No new symptoms, the patient is doing well Objective: Vital Signs Temp Pulse Resp BP Pulse Ox 37.5 C 72 24 H 148/48 H 99 08/05/17 08:00 08/05/17 08:00 08/05/17 08:00 08/05/17 09:24 08/05/17 08:00 Laboratory Results 08/03/17 03:52 08/03/17 03:52 08/04/17 08/05/17 08/06/17 05:59 05:59 05:59 Intake Total 600 900 Output Total 1400 1050 Balance -800 -150 She is awake and alert She has some appendicular ataxia in the right arm. Coordination is normal in the left arm 35 total minutes floor time reviewing interval history, repeat imaging and coordinating care with ICU team. Allergies/Adverse Reactions: No Known Allergies Allergy (Verified 08/02/17 11:52)
--- NOTE | 2017-08-05 14:00 | HOSPPROG ---
Hospitalist Progress Note Assessment/Plan: * large cerebellar CVA * Echo looked okay * Neurology following * 1 more day of frequent neuro checks ICU * Neurosurgery was consulted by Neurology * anticoagulation in 2 weeks after an onset of stroke * recent myomectomy for HOCUM Subjective: Still with right-sided leg weakness and issues with balance Objective: Vital Signs Temp Pulse Resp BP Pulse Ox 37.1 C 76 22 H 154/48 H 99 08/05/17 12:00 08/05/17 12:00 08/05/17 12:00 08/05/17 12:00 08/05/17 12:00 Laboratory Results 08/03/17 03:52 08/03/17 03:52 08/04/17 08/05/17 08/06/17 05:59 05:59 05:59 Intake Total 600 900 Output Total 1400 1050 Balance -800 -150 - Physical Exam Constitutional: no apparent distress, appears nourished, not in pain Eyes: anicteric sclera, EOMI Ears, Nose, Mouth, Throat: moist mucous membranes, hearing normal Cardiovascular: regular rate and rhythym, no murmur, rub, or gallop Respiratory: no respiratory distress, no rales or rhonchi, clear to auscultation Gastrointestinal: normoactive bowel sounds, soft, non-tender abdomen, no palpable masses Skin: warm Neurologic: AAOx3 Psychiatric: interacting appropriately, not anxious, not encephalopathic, thought process linear ICD10 Worksheet Patient Problems: Problems Problem Status Onset CVA (cerebral vascular accident) Acute Acute blood loss anemia Acute Acute chest pain Acute S/P ventricular septal myectomy Acute ~07/25/17 HTN (hypertension) Chronic 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
--- NOTE | 2017-08-05 15:15 | PDINTPN ---
Wind Turbine Engineer Progress Note Assessment/Plan: Assessment/plan: 71 F with recent myectomy for HOCM, returned after dc home with abnormal gait and mental status change, founf to have large cerebellar stroke. No TPA given recent surgery. Symptoms have improved and neurology/nueurosurgery following. * CVA- currently stable. Discussed with Dr. Wheat today and agree with ongoing ICU monitoring. If she remains stable tomorrow and her CT looks good, she can likely transfer out of ICU then. Continue PT/OT * HOCM- s/p myectomy and stable Subjective: stable overnight Objective: Vital Signs Temp Pulse Resp BP Pulse Ox 37.1 C 76 22 H 154/48 H 99 08/05/17 12:00 08/05/17 12:00 08/05/17 12:00 08/05/17 12:00 08/05/17 12:00 Laboratory Results 08/03/17 03:52 08/03/17 03:52 08/04/17 08/05/17 08/06/17 05:59 05:59 05:59 Intake Total 600 900 Output Total 1400 1050 Balance -800 -150 Physical Exam - Physical Exam General Appearance: alert, no apparent distress EENT: PERRL/EOMI Neck: supple Respiratory: lungs clear, normal breath sounds, No respiratory distress Cardiac/Chest: regular rate, rhythm, No edema Abdomen: non-tender, soft, No distended Skin: normal color, warm/dry Lymphatic: no adenopathy Extremities: No pedal edema Neuro/Psych: alert, normal mood/affect, oriented x 3 ICD10 Worksheet Patient Problems: Problems Problem Status Onset CVA (cerebral vascular accident) Acute Acute blood loss anemia Acute Acute chest pain Acute S/P ventricular septal myectomy Acute ~07/25/17 HTN (hypertension) Chronic 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
[2017-08-06] MEDS: VERAPAMIL ER 240 MG TAB PO SCH (08:20)
[2017-08-06] MEDS: ASPIRIN EC 81 MG TAB PO SCH (08:20)
[2017-08-06] MEDS: METOPROLOL SUCCINATE XR 50 MG TAB PO SCH ×2 (08:21→21:07)
[2017-08-06] MEDS: ATORVASTATIN CALCIUM 10 MG TAB PO SCH (08:21)
[2017-08-06] MEDS: ENOXAPARIN 40 MG/0.4 ML SYR SC SCH (08:22)
--- NOTE | 2017-08-06 11:07 | HOSPPROG ---
Hospitalist Progress Note Assessment/Plan: * large cerebellar CVA * Echo looked okay * Neurology following * CT today looked okay with no swelling * anticoagulation in 2 weeks after an onset of stroke * inpatient rehab versus home * recent myomectomy for HOCUM Subjective: Feeling stronger. New complaints Objective: Vital Signs Temp Pulse Resp BP Pulse Ox 37.5 C 72 20 143/49 H 98 08/06/17 04:00 08/06/17 08:21 08/06/17 08:00 08/06/17 08:21 08/06/17 08:00 Laboratory Results 08/03/17 03:52 08/03/17 03:52 08/05/17 08/06/17 08/07/17 05:59 05:59 05:59 Intake Total 900 960 Output Total 1050 875 Balance -150 85 - Physical Exam Constitutional: no apparent distress, appears nourished, not in pain Eyes: PERRL Ears, Nose, Mouth, Throat: moist mucous membranes Cardiovascular: regular rate and rhythym, no murmur, rub, or gallop Respiratory: no respiratory distress, no rales or rhonchi, clear to auscultation Skin: warm Neurologic: AAOx3 Psychiatric: interacting appropriately, not anxious, not encephalopathic, thought process linear ICD10 Worksheet Patient Problems: Problems Problem Status Onset CVA (cerebral vascular accident) Acute Acute blood loss anemia Acute Acute chest pain Acute S/P ventricular septal myectomy Acute ~07/25/17 HTN (hypertension) Chronic 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
--- NOTE | 2017-08-06 12:11 | NEUROPROG ---
Assessment: 1. Cryptogenic large right cerebellar infarct 2. Intracranial aneurysms 35 total minutes floor time; this include reviewing angiography, coordinating care and in direct counseling with the patient In summary, CT angiography of the head and neck did not show any luminal thrombosis or dissection. She did have some small incidental aneurysms found. Neurosurgery has reviewed and do not need treatment now. Echo did not show a cardiac source for thrombus. No atrial fibrillation on telemetry. Going forward, peak post stroke edema occurs 3-5 days after stroke. The head CT without contrast this morning (08-06-17) did not show any significant deterioration, swelling with obstructive hydrocephalus or hemorrhage. We will repeat head CT without contrast tomorrow morning to assess for any significant edema or hemorrhage. PLAN: 1. Keep patient in ICU for q.1 hour neuro checks until Tuesday morning (peak swelling days 3-5, typically) 2. If any acute deterioration - please call Neurosurgery and order repeat head CT without contrast stat (as she may develop swelling with hydrocephalus and need emergent decompressive craniectomy) 3. Case discussed with cardiothoracic surgery, the plan will be to start oral anticoagulation 14 days after stroke onset which will be 08/16/2017, she then can finish a course of oral anticoagulation per cardiothoracic surgery protocol for approximately 12 weeks 4. Repeat head CT without contrast has been ordered for tomorrow at 6:00 a.m. 5. As noted above, peak swelling occurs from days 3-5 typically after stroke. Therefore, the will plan will be to keep her in ICU for frequent neuro checks during this period of time. Subjective: No new symptoms Objective: Vital Signs Temp Pulse Resp BP Pulse Ox 37.5 C 72 20 143/49 H 98 08/06/17 04:00 08/06/17 08:21 08/06/17 08:00 08/06/17 08:21 08/06/17 08:00 Laboratory Results 08/03/17 03:52 08/03/17 03:52 08/05/17 08/06/17 08/07/17 05:59 05:59 05:59 Intake Total 900 960 Output Total 1050 875 Balance -150 85 [id number] on right shows significant appendicular ataxia On the left, normal Allergies/Adverse Reactions: No Known Allergies Allergy (Verified 08/02/17 11:52)
--- NOTE | 2017-08-06 14:25 | PDINTPN ---
Gambling Monitor Progress Note Assessment/Plan: Assessment/plan: 71 F with recent myectomy for HOCM, returned after dc home with abnormal gait and mental status change, founf to have large cerebellar stroke. No TPA given recent surgery. Symptoms have improved and neurology/nueurosurgery following. * CVA- currently stable. Bradley to follow in ICU for weekend per Dr. Wheat * HOCM- s/p myectomy and stable 08/06/17 14:24 Objective: Vital Signs Temp Pulse Resp BP Pulse Ox 36.6 C 60 20 106/42 L 100 08/06/17 12:00 08/06/17 14:00 08/06/17 14:00 08/06/17 14:00 08/06/17 14:00 Laboratory Results 08/03/17 03:52 08/03/17 03:52 08/05/17 08/06/17 08/07/17 05:59 05:59 05:59 Intake Total 900 960 Output Total 1050 875 Balance -150 85 Physical Exam - Physical Exam General Appearance: WD/WN, alert, obese EENT: PERRL/EOMI Neck: supple Respiratory: lungs clear, normal breath sounds, No respiratory distress Cardiac/Chest: regular rate, rhythm, No edema Abdomen: non-tender, soft, No distended Skin: normal color, warm/dry Lymphatic: no adenopathy Extremities: No pedal edema Neuro/Psych: alert, normal mood/affect, oriented x 3 ICD10 Worksheet Patient Problems: Problems Problem Status Onset CVA (cerebral vascular accident) Acute Acute blood loss anemia Acute Acute chest pain Acute S/P ventricular septal myectomy Acute ~07/25/17 HTN (hypertension) Chronic 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
--- NOTE | 2017-08-06 17:01 | CPEKG ---
Heart Rate: 52 RR Interval: 1154 P-R Interval: 180 QRSD Interval: 154 QT Interval: 504 QTC Interval: 469 P Hinsdale: 36 QRS Hinsdale: 14 T Wave Hinsdale: 166 EKG Severity - ABNORMAL ECG - EKG Impression: SINUS RHYTHM EKG Impression: LEFT BUNDLE BRANCH BLOCK EKG Impression: COMPARED WITH 26 JUL 2017, HR SLOWER Electronically Signed By: Lynne Leone 07-Aug-2017 11:07:19
[2017-08-07] MEDS: ASPIRIN EC 81 MG TAB PO SCH (08:22)
[2017-08-07] MEDS: METOPROLOL SUCCINATE XR 50 MG TAB PO SCH ×2 (08:23→21:44)
[2017-08-07] MEDS: ATORVASTATIN CALCIUM 10 MG TAB PO SCH (08:23)
[2017-08-07] MEDS: VERAPAMIL ER 240 MG TAB PO SCH (08:23)
[2017-08-07] MEDS: ENOXAPARIN 40 MG/0.4 ML SYR SC SCH (08:24)
--- NOTE | 2017-08-07 08:51 | PDINTPN ---
Sports Medicine Physician Progress Note Assessment/Plan: Assessment/plan: 71 F with recent myectomy for HOCM, returned after dc home with abnormal gait and mental status change, founf to have large cerebellar stroke. No TPA given recent surgery. Symptoms have improved and neurology/nueurosurgery following. * CVA- currently stable. Bradley to follow in ICU for weekend per Dr. Wheat * HOCM- s/p myectomy and stable 08/06/17 14:24 Subjective: feels well, though visited without cattle tester. Walking OK but with "much work" Denies headache, nausea vomiting Objective: Vital Signs Temp Pulse Resp BP Pulse Ox 36.9 C 73 18 161/47 H 100 08/07/17 04:00 08/07/17 08:23 08/07/17 08:00 08/07/17 08:23 08/07/17 08:00 Laboratory Results 08/03/17 03:52 08/03/17 03:52 08/06/17 08/07/17 08/08/17 05:59 05:59 05:59 Intake Total 960 1070 Output Total 875 1500 300 Balance 85 -430 -300 Physical Exam - Physical Exam General Appearance: WD/WN, alert, no apparent distress, obese EENT: PERRL/EOMI Neck: supple Respiratory: lungs clear, normal breath sounds, No respiratory distress Cardiac/Chest: normal peripheral pulses, regular rate, rhythm, No edema Abdomen: non-tender, soft, No distended Skin: normal color, warm/dry Lymphatic: no adenopathy Neuro/Psych: alert, normal mood/affect, oriented x 3 ICD10 Worksheet Patient Problems: Problems Problem Status Onset CVA (cerebral vascular accident) Acute Acute blood loss anemia Acute Acute chest pain Acute S/P ventricular septal myectomy Acute ~07/25/17 HTN (hypertension) Chronic 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
[2017-08-07] MEDS ORDERED: BISACODYL 10 MG SUPP PR PRN (11:04)
[2017-08-07] MEDS ORDERED: MAGNESIUM HYDROXIDE 30 ML UDCUP PO PRN (11:04)
[2017-08-07] MEDS ORDERED: POLYETHYLENE GLYCOL 3350 17 GM PKT PO PRN (11:04)
[2017-08-07] MEDS ORDERED: LACTULOSE 20 GM/30 ML UDCUP PO PRN (11:04)
[2017-08-07] MEDS: ACETAMINOPHEN 325 MG TAB PO PRN (11:11)
--- NOTE | 2017-08-07 12:55 | NEUROPROG ---
Assessment: 1. Cryptogenic large right cerebellar infarct 2. Intracranial aneurysms 35 total minutes floor time; this include reviewing angiography, coordinating care and in direct counseling with the patient In summary, CT angiography of the head and neck did not show any luminal thrombosis or dissection. She did have some small incidental aneurysms found. Neurosurgery has reviewed and do not need treatment now. Echo did not show a cardiac source for thrombus. No atrial fibrillation on telemetry. Going forward, peak post stroke edema occurs 3-5 days after stroke. The head CT without contrast this morning (08-07-17) was stable or showed a minimal decrease in infarct edema - it did not show any significant deterioration, swelling with obstructive hydrocephalus or hemorrhage. We will repeat head CT without contrast tomorrow morning to assess for any significant edema or hemorrhage. PLAN: 1. Keep patient in ICU for q.1 hour neuro checks until Tuesday morning (peak swelling days 3-5, typically) 2. If any acute deterioration - please call Neurosurgery and order repeat head CT without contrast stat (as she may develop swelling with hydrocephalus and need emergent decompressive craniectomy) 3. Case discussed with cardiothoracic surgery, the plan will be to start oral anticoagulation 14 days after stroke onset which will be 08/16/2017, she then can finish a course of oral anticoagulation per cardiothoracic surgery protocol for approximately 12 weeks 4. Repeat head CT without contrast has been ordered for tomorrow at 6:00 a.m. 5. If the patient remains stable overnight and tomorrow's head CT without contrast does not show any increase in edema, swelling or hemorrhage or hydrocephalus - then we can transfer the patient from the ICU and consider inpatient rehabilitation. From there, we do not need to continue routine head CTs. Only if there is an acute deterioration, we will repeat a stat head CT without contrast and call Neurosurgery. We will continue to follow PRN. Please do not hesitate to call if there are any further questions, or changes in neurologic status with this patient. My colleague, Dr. Layton, takes over the neurology service tomorrow. Subjective: No new symptoms Objective: Vital Signs Temp Pulse Resp BP Pulse Ox 36.9 C 62 19 129/50 H 97 08/07/17 04:00 08/07/17 12:00 08/07/17 12:00 08/07/17 12:00 08/07/17 12:00 Laboratory Results 08/03/17 03:52 08/03/17 03:52 08/06/17 08/07/17 08/08/17 05:59 05:59 05:59 Intake Total 960 1070 Output Total 875 1500 1150 Balance 85 -430 -1150 right upper extremity appendicular ataxia Allergies/Adverse Reactions: No Known Allergies Allergy (Verified 08/02/17 11:52)
[2017-08-07] MEDS ORDERED: traZODone 50 MG TAB PO PRN (13:51)
--- NOTE | 2017-08-07 13:51 | HOSPPROG ---
<Tiffany Benavides - Last Filed: 08/07/17 13:51> Hospitalist Progress Note Assessment/Plan: * large cerebellar CVA * Echo looked okay * Neurology following * CT today looked okay with no swelling * anticoagulation in 2 weeks after an onset of stroke * inpatient rehab versus home * 1 more day in the ICU to monitor for any swelling * recent myomectomy for HOCUM Subjective: Complaining of insomnia Objective: Vital Signs Temp Pulse Resp BP Pulse Ox 36.9 C 62 19 129/50 H 97 08/07/17 04:00 08/07/17 12:00 08/07/17 12:00 08/07/17 12:00 08/07/17 12:00 Laboratory Results 08/03/17 03:52 08/03/17 03:52 08/06/17 08/07/17 08/08/17 05:59 05:59 05:59 Intake Total 960 1070 Output Total 875 1500 1150 Balance 85 -430 -1150 - Physical Exam Constitutional: no apparent distress, appears nourished, not in pain Eyes: anicteric sclera, EOMI Ears, Nose, Mouth, Throat: moist mucous membranes Cardiovascular: regular rate and rhythym Respiratory: no respiratory distress Skin: warm Neurologic: AAOx3 ICD10 Worksheet Patient Problems: Problems Problem Status Onset CVA (cerebral vascular accident) Acute Acute blood loss anemia Acute Acute chest pain Acute S/P ventricular septal myectomy Acute ~07/25/17 HTN (hypertension) Chronic 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
--- NOTE | 2017-08-07 17:05 | ASMTCASEMG ---
Living Arrangements What is your living Answers: With Spouse arrangement? Who do you live with? Type Of Residence What kind of residence do Answers: Apartment you live in? Discharge Plan Comments Coordination Status Comments Notes: Patient had open heart surgery 1 week ago and was d/c'ed on 08-01-17. Patient was readmitted on 08-02-17 for CVA. OT/PT/SPL/Inpatient Rehab have been ordered. Patient is Ukrainian speaking only and lives with her and son. Awaiting therapy cesar and Dr. Adam's recommendations to determine d/c needs. CM will follow. Date Signed: 08/04/2017 03:52 PM Electronically Signed By:Helena Smart
--- NOTE | 2017-08-07 17:07 | ASMTCMCOM ---
CM Note CM Note Notes: PT/OT recommending inpatient rehab. for d/c. Shanika from [facility] called to say she has the insurance auth for patient and they can take her for the next 3 days. If patient doesn't d/c within 3 days she will have to get a new authorization from the insurance. CM will follow. Date Signed: 08/05/2017 02:34 PM Electronically Signed By:Helena Smart
[2017-08-07] MEDS: SENNOSIDES/DOCUSATE SODIUM TAB PO SCH (21:44)
[2017-08-07] MEDS: traMADol 50 MG TAB PO PRN (21:44)
[2017-08-08] MEDS: VERAPAMIL ER 240 MG TAB PO SCH (08:16)
[2017-08-08] MEDS: SENNOSIDES/DOCUSATE SODIUM TAB PO SCH (08:17)
[2017-08-08] MEDS: ASPIRIN EC 81 MG TAB PO SCH (08:17)
[2017-08-08] MEDS: ATORVASTATIN CALCIUM 10 MG TAB PO SCH (08:18)
[2017-08-08] MEDS: ENOXAPARIN 40 MG/0.4 ML SYR SC SCH (08:19)
[2017-08-08] MEDS: METOPROLOL SUCCINATE XR 50 MG TAB PO SCH (08:19)
--- NOTE | 2017-08-08 09:09 | HOSPPROG ---
Hospitalist Progress Note Assessment/Plan: With rn enterostomal bedside #Right cerebellar stroke: repeat CT stable this morning. DC to Inpt rehab today. Cont statin, ASA -no e/o a fib FU with Dr. Wheat. AC starting 08/16 #Recent myomectomy: FU Dr. Adam 08/09. AC can be started 08/16 #DC today rehab today Subjective: no CP, weakness Objective: Vital Signs Temp Pulse Resp BP Pulse Ox 36.4 C 68 21 H 156/56 H 93 08/08/17 06:00 08/08/17 06:00 08/08/17 06:00 08/08/17 06:00 08/08/17 06:00 Laboratory Results 08/03/17 03:52 08/03/17 03:52 08/07/17 08/08/17 08/09/17 05:59 05:59 05:59 Intake Total 1070 1100 Output Total 1500 1150 Balance -430 -50 - Physical Exam Constitutional: no apparent distress Eyes: PERRL Ears, Nose, Mouth, Throat: moist mucous membranes Cardiovascular: regular rate and rhythym, no murmur, rub, or gallop, No edema Respiratory: no respiratory distress, no rales or rhonchi Gastrointestinal: normoactive bowel sounds, soft, non-tender abdomen Genitourinary: no bladder fullness Skin: warm Musculoskeletal: full muscle strength Neurologic: AAOx3, CN II-XII Intact Psychiatric: interacting appropriately ICD10 Worksheet Patient Problems: Problems Problem Status Onset Acute blood loss anemia Acute Acute chest pain Acute CVA (cerebral vascular accident) Acute S/P ventricular septal myectomy Acute ~07/25/17 HTN (hypertension) Chronic 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
[2017-08-08 11:20] VITALS: RESP 16; TEMP 98.7; O2SAT 93
--- NOTE | 2017-08-08 12:53 | PDIAF ---
- Diagnosis Diagnosis: right cerebellar stroke Code Status: Full Code - Medication Management Discharge Medications: Medications to Continue on Transfer Aspirin EC [Aspirin EC 81 mg (*)] 81 mg PO DAILY 04/26/17 [Last Taken 07/24/17 09:00] Herbals/Supplements -Info Only 1 ea PO DAILY 04/26/17 [Last Taken 07/23/17] Metoprolol Succinate Xr [Toprol Xl 50 mg (*)] 50 mg PO BID 04/26/17 [Last Taken 07/24/17 02:00] Verapamil ER [Calan SR/ER 240MG (*)] 240 mg PO DAILY 04/26/17 [Last Taken 09:00] Albuterol [Proventil Inhaler HFA (*)] 1 - 2 puffs IH Q4H PRN 07/19/17 [Last Taken 07/18/17] Acetaminophen [Tylenol 325mg (*)] 325 - 650 mg PO Q4HRS PRN #0 tab 08/01/17 [ Last Taken Unknown] traMADol [Ultram 50 mg (*)] 50 - 100 mg PO Q4HRS PRN #40 tab 08/01/17 [Last Taken Unknown] Acetaminophen [Tylenol 325mg (*)] 650 mg PO Q4HRS PRN tab 08/08/17 [Last Taken Unknown] Atorvastatin Calcium [Lipitor 10 mg (*)] 10 mg PO DAILY tab 08/08/17 [Last Taken Unknown] Sennosides/Docusate Sodium [Senokot-S] 1 - 2 tab PO BID tab 08/08/17 [Last Taken Unknown] Discharge Medications: Refer to the Discharge Home Medication list for PRN reason. - Orders Services needed: Registered Nurse, Certified Occupational Physician, Master [employer] , Physical Therapy Diet Texture: Regular Texture Diet, Thin Liquids, Meds Whole w/Liquids Additional: Will need to start full anticoagulation for stroke on 08/16/17. - Follow Up Care Current Providers and Referrals: Justine Serna MD [Primary Care Provider] - As per Instructions Vernon Adam DO [Doctor of Osteopathy] - 08/09/17 9:30 am Pepe Wheat MD [Medical Doctor] - follow up in 1 week
[2017-08-08 13:13] VITALS: BP 130/48; PULSE 61
--- NOTE | 2017-08-08 14:25 | GDS ---
[f rep st] DISCHARGE SUMMARY DISCHARGE DIAGNOSES: 1. Cryptogenic right cerebellar stroke. 2. Intracranial aneurysms. 3. Hypertrophic obstructive cardiomyopathy, subvalvular aortic stenosis, moderate mitral regurgitation, recent septal myotomy. HISTORY OF PRESENT ILLNESS: The patient is a 71-year-old [place] Islander-speaking female with history of HOCM, who was discharged from the hospital 08/01/2017, after a septal myotomy done by Dr. Adam. She had postoperative bradycardia, but was otherwise stable after surgery. She returned home with oxygen, and that morning developed lethargy and bilateral leg weakness. She acted strangely and then developed a right-sided facial droop and slurred speech. History was initially obtained by her . HOSPITAL COURSE BY PROBLEM: 1. Cryptogenic large right cerebellar infarct. CT angiography did not show any luminal thrombosis or dissection. She had small incidental aneurysms found. Neurosurgery reviewed and nothing to intervene on. There was no evidence of thrombus on echocardiogram, and telemetry was negative for atrial fibrillation. The patient had several repeat CTs to evaluate for postop edema, which have been stable. She is neurally intact today. Continue aspirin and statin. Start full anticoagulation 08/16. 2. Recent myectomy: This was done 08/01/2017, by Dr. Adam. She is to follow up with him tomorrow. The patient may resume anticoagulation 14 days after stroke on 08/16/2017. DIET: Cardiac. DISPOSITION: Patient stable for discharge to inpatient rehab. FOLLOWUP: 1. Dr. Wheat in [address] Adam on 08/09/2017, at 9:30. 3. May resume anticoagulation 08/16/2017. /[id number]/MODL MTDD
== END 2017-08-08 15:00 | DRG 66 ==
LOC: OBSVTOIN 20:12 → F3N 20:23 → F2W 20:40 → F2N 08-03 14:43
PROVIDERS: ADMIT Internal Medicine; ATTEND Internal Medicine
DX: I63.8 Other cerebral infarction (principal); I67.1 Cerebral aneurysm, nonruptured; E11.9 Type 2 diabetes mellitus without complications; E78.5 Hyperlipidemia, unspecified; Z85.3 Personal history of malignant neoplasm of breast; Z23 Encounter for immunization
CPT/HCPCS: 92507-GN; 92523-GN; 92526-GN; 92610-GN; 96374; 97116-GP; 97162-GP; 97167-GO; 97530-GO; 97530-GP; 97535-GO; G0009; G8978-GP-CL; G8979-GP-CJ; G8987-GO-CM; G8988-GO-CJ; G8989-GO-CJ; G8996-GN-CH; G8997-GN-CH; G8998-GN-CH; G9168-GN-CJ; G9169-GN-CI; J1650; J2060; J2405; Q9967

== ENCOUNTER 2017-08-04 14:58 | Inpatient (IN) | payer OTHER ==
[2017-08-08] MEDS ORDERED: ALBUTEROL 60 PUFFS/8 GM MDI IH PRN (16:14)
[2017-08-08] MEDS ORDERED: BISACODYL 10 MG SUPP PR PRN (16:16)
[2017-08-08] MEDS ORDERED: ALBUTEROL 200 PUFFS/18 GM MDI IH PRN (16:21)
--- NOTE | 2017-08-08 17:11 | PDOREHIP ---
Admission [facility] - Admission - 3 Day Assessment Period Admission Date/Day 1: 08/08/17 Day 2: 08/09/17 Day 3: 08/10/17 - Active Diagnoses Comorbidities and Co-existing Conditions at Admission: 26964. None of the Above - Skin Conditions Unhealed Pressure Ulcer (1 or more/Stage 1 or >)-Admission: 0. No
--- NOTE | 2017-08-08 18:05 | GHP ---
[f rep st] HISTORY AND PHYSICAL POST ADMISSION PHYSICIAN EVALUATION AND REHABILITATION TREATMENT PLAN DATE OF ADMISSION: 08/08/2017 DATE OF EVALUATION: 08/08/2017. TIME OF EVALUATION: 1605. REFERRING FACILITY: [facility]. REFERRING PHYSICIAN: Dr. Marcos IMPAIRMENT GROUP: 1.3 ETIOLOGIC DIAGNOSIS: Bilateral Involvement DATE OF ONSET: 08/02/2017. REFERRING PHYSICIAN: Dr. Marcos. CONSULTING PHYSICIANS: Neurology, Dr. Wheat. Pulmonary/Critical Care, Dr. Barlow. REHABLITATION DIAGNOSIS: Debility status post right cerebellar cerebrovascular accident. HISTORY OF PRESENT ILLNESS: This patient had gone home from the hospital following a transaortic myomectomy for hypertrophic obstructive cardiomyopathy. That surgery was done on 07/26/2017 and she went home on 08/01/2017. She returned to the hospital the next day with nausea, vomiting, and dizziness. Evaluation with an MRI of the brain showed right cerebellar infarct. She had subsequent serial head CTs to rule out edema or hemorrhagic conversion and none of these were seen. Echocardiogram was done, which showed moderate LVH, normal left ventricular ejection fraction, and no cardiac source of emboli. CT angiography of the head and neck did not show any luminal thrombosis or dissection. There was no atrial fibrillation seen on telemetry and the stroke was considered cryptogenic. She is to be referred to Cardiology for a monitor placement after discharge. Given the location and size of the stroke, she was considered to be at risk for initiation of anticoagulation. Plan was to resume oral anticoagulation for cardiothoracic surgery protocol starting 14 days after the stroke, which will be 08/16/2017. She was participating in therapies and ready for inpatient rehabilitation. LABORATORIES AND STUDIES: During her stay, she had anemia and received a blood transfusion and had subsequent decline in hemoglobin and hematocrit. On 2016, hemoglobin was 9.9 and hematocrit was 29.8. Serum chemistry revealed normal renal function and electrolytes. There were few elevated blood sugars, but these do not appear to have been fasting. Troponin was mildly elevated at 0.074. Lipid panel revealed a cholesterol of 104 and LDL of 60 and an HDL of 22. PRECAUTIONS: She has sternal precautions. ACTIVE COMORBIDITIES: She has the tier 3 comorbidity of morbid obesity with obesity plus hypertension plus left ventricular hypertrophy. She has no other tier 1 or tier 2 comorbidities. PAST MEDICAL HISTORY: 1. Hypertrophic obstructive cardiomyopathy. 2. History of right mastectomy. 3. Subvalvular aortic stenosis and moderate mitral regurgitation. 4. Breast cancer. 5. Cataracts. 6. Diabetes mellitus type 2. 7. Hypertension. PAST SURGICAL HISTORY: 1. Right mastectomy. 2. Transaortic cardiac myomectomy. 3. Tonsillectomy. 4. section. PRE-HOSPITAL MEDICATIONS: 1. Metoprolol succinate 50 mg p.o. twice daily. 2. Verapamil 240 mg p.o. daily. 3. Albuterol 1-2 puffs q.4 hours p.r.n. 4. Simvastatin 10-20 mg p.o. daily. 5. Aspirin 81 mg p.o. daily. 6. Acetaminophen 325-650 mg p.o. q.4 hours p.r.n. 7. Tramadol 50-100 mg p.o. q.4 hours p.r.n. 8. Oxygen at 3 L. ADMISSION MEDICATIONS: 1. Acetaminophen 325-650 mg p.o. q.4 hours p.r.n. 2. Albuterol 1-2 puffs q.4 hours p.r.n. 3. Aspirin 81 mg p.o. daily. 4. Atorvastatin 10 mg p.o. daily. 5. Metoprolol succinate 50 mg p.o. twice daily. 6. Senna 1-2 tabs p.o. twice daily. 7. Tramadol 50-100 mg p.o. q.4 hours p.r.n. 8. Verapamil ER 240 mg p.o. daily. ALLERGIES: No known drug allergies. FAMILY HISTORY: Noncontributory. PSYCHOSOCIAL HISTORY: She is . She lives with her , her son, and her granddaughter. She is nonsmoker. She uses very rare alcohol. She has worked as a warehouse picker. She reports that there are 5 stairs to enter the house, but once she is in she can live on 1 level. REVIEW OF SYSTEMS: She has some lightheadedness when she stands up, but she denies lor dizziness. She has no more nausea and vomiting. The last time she had vomiting was 3 days ago. She reports her vision is a bit abnormal but she does not describe the details. She denies double vision. She denies difficulty swallowing, numbness, or tingling in the extremities. She has some difficulty controlling her right arm and her right leg. She has some shoulder pain, especially over the right shoulder. She has minimal pain at her sternal incision. She reports her bowels are moving. She has a good appetite. She denies dysuria or urinary frequency. She denies cough or dyspnea. Other than that, a 10-point review of systems is negative. PHYSICAL EXAM: VITAL SIGNS: Blood pressure is 122/88. Pulse is variable from high 40s to low 60s. Respiratory rate is 16. Temperature is 37.2. Her weight is 72.6 kg for a body mass index of 30.2. GENERAL: This is a well-nourished, well-developed, obese woman, lying in bed. Comes to seated with minimal assistance. Cooperative and in no acute distress. HEENT: Extraocular movements are intact. Pupils are equal, round, and reactive to light. Mucous membranes are moist. Dentition is in good condition. She has a crowded airway with Mallampati class III. NECK: Supple. HEART: There is a regular rate and rhythm with some variability in heart rate. There is a prominent P2, but otherwise there are no murmurs rubs or gallops. LUNGS: Clear to auscultation bilaterally. ABDOMEN: Soft, nontender, nondistended with normoactive bowel sounds. It is obese. There is no hepatosplenomegaly. EXTREMITIES: There is no cyanosis, clubbing, or edema. Radial pulses are 2+ bilaterally. Dorsalis pedis pulses are trace. NEUROLOGIC: She is alert and oriented x3. Cranial nerves 2-12 are grossly intact. There is no focal weakness. Sensation is intact to light touch. Deep tendon reflexes are 2+ at the biceps, patellar, and Achilles tendons. Plantar reflex is indeterminate bilaterally. She is able to arise from seated to standing with just contact-guard assist and can ambulate a few fet with broad-based gait and short steps to stand on the scale with assistance from the nurse. There is no pronator drift. She has slow, irregular movement of the right arm in [id number] testing, but no past pointing. On the left side, [id number] is normal. She has a minor loss of balance when returning from the scale to the bed. SKIN: Sternal wound with eschar, no erythema, swelling, dehiscence or exudate. CURRENT LEVEL OF FUNCTION: Per the preadmission screen regarding diet, feeding , and swallowing, she was on a regular diet and she was to remain upright for oral intake. Grooming was accomplished with set up and done in the chair. She was continent of bowel and bladder. Transfers were done with contact guard and voice cuing using a front-wheeled walker. Seated balance was independent. Standing balance required minimal assistance. Endurance was fair. She was able ambulate 150 feet with a front-wheeled walker and minimal assistance with voice cuing. She had decreased kae and decreased bilateral step length, foot flat, but no loss of balance. Regarding communication, she was noted to have mild impairment. For cognition, she was noted to have mild impairment in memory, problem solving, and reasoning. IMPRESSION: This patient is a 71-year-old woman who had a successful cardiac myomectomy for hypertrophic obstructive cardiomyopathy. She came through surgery well. She has had improvements in her prior cardiac symptoms. However , the day after hospital discharge, she suffered a cerebellar cerebrovascular accident with confusion, nausea, vomiting, and ataxia. She was hospitalized. No etiology of the stroke was determined. Anticoagulation as protocol post cardiac surgery was discontinued. She was continued on aspirin. Simvastatin was replaced with atorvastatin. She was monitored closely to rule out any worsening brain edema or hemorrhagic conversion of her stroke and she was stable in these regards. She had some improvement in her symptoms and was appropriate for inpatient rehabilitation. Her goal is to complete a rehabilitation stay and then return home with her family and supportive services. For a safe discharge she will need to achieve independence with grooming, bathing, dressing, and bed mobility. It is expected she will achieve modified independence for transfers and for ambulation on level and unlevel surfaces. She likely will require assistance for household management and shopping. She will have therapy with physical therapy, occupational therapy, and speech and language pathology on 5-7 days of the week for 60 minutes with each discipline. Her expected duration of stay is 5-7 days. It is anticipated that upon discharge, she will continue to benefit from home health services including nursing, speech and language pathology, a nurse's aide , OT, and PT as well as a stroke support group. ASSESSMENT AND PLAN: 1. Debility status post right cerebellar stroke with right upper and lower extremity ataxia. Physical therapy and Occupational Therapy to optimize mobility and activities of daily living. 2. Possible cognitive impairments to be assessed and treated per Speech and Language Pathology. 3. Secondary stroke prophylaxis: Continue aspirin and atorvastatin. Monitor blood pressure. 4. Status post transaortic myomectomy for hypertrophic obstructive cardiomyopathy. She has come out of the hospital on metoprolol as well as verapamil. During physical exam, she had a variable heart rate at times dropping as low as the high 40s. However, she is not symptomatic. She will be monitored and if her heart rate is becoming too slow or if she is symptomatic of either hypotension or bradycardia, medications will be adjusted. The plan is for her to resume anticoagulation 2 weeks after stroke onset, 08/06/2017, per Cardiothoracic Surgery. 5. Cryptogenic etiology of stroke. She should have a 30-day event monitor and will follow up with Cardiology after her discharge to initiate this monitoring. 6. Pain management. Continue acetaminophen and tramadol. Monitor for adequacy of pain management. 7. Hypoxemia. She has been on oxygen at night and will continue p.r.n. during the day. We will encourage incentive spirometry. 8. Prophylaxis. She is on aspirin as an antiplatelet agent. There is no anticoagulant ordered. She has ambulated as far as 150 feet. She is elderly and obese and is certainly at elevated risk for deep venous thrombosis. However , per the advice of Neurology and Cardiothoracic Surgery, she is not on any anticoagulation present. Mobility will be encouraged and she will have sequential compression devices at night and thromboembolic disease hose on otherwise. /[id number]/MODL MTDD
[2017-08-08] MEDS: traMADol 50 MG TAB PO PRN (20:52)
[2017-08-08] MEDS: METOPROLOL SUCCINATE XR 50 MG TAB PO SCH (20:59)
[2017-08-08] MEDS: SENNOSIDES/DOCUSATE SODIUM TAB PO SCH (21:36)
[2017-08-09 07:33] LABS: % IMMATURE GRANULYOCYTES 0.2 % (0.0-1.1); ABSOLUTE IMMATURE GRANULOCYTES 0.01 10^3/uL (0.00-0.10); ADD DIFF? NO; ADD MORPH? NO; ADD SCAN? NO; ATYPICAL LYMPHOCYTE FLAG 10 (0-99); FRAGMENT RBC FLAG 0 (0-99); HEMATOCRIT 36.9 % (38.0-47.0); HEMOGLOBIN 11.7 g/dL (12.6-16.3); LEFT SHIFT FLG 0 (0-99); LIPEMIA HEMOLYSIS FLAG 80 (0-99); MEAN CELL HEMOGLOBIN 28.7 pg (27.9-34.1); MEAN CELL HEMOGLOBIN CONCENTR. 31.7 g/dL (32.4-36.7); MEAN CELL VOLUME 90.7 fL (81.5-99.8); MEAN PLATELET VOLUME 10.1 fL (8.7-11.7); PLATELET CLUMPS FLAG 0 (0-99); PLATELET COUNT 286 10^3/uL (150-400); RED BLOOD CELL COUNT 4.07 10^6/uL (4.18-5.33); RED CELL DISTRIBUTION WIDTH 14.1 % (11.5-15.2)
[2017-08-09] MEDS: ACETAMINOPHEN 325 MG TAB PO PRN ×2 (08:48→15:06)
[2017-08-09] MEDS: ASPIRIN EC 81 MG TAB PO SCH (08:48)
[2017-08-09] MEDS: METOPROLOL SUCCINATE XR 50 MG TAB PO SCH ×3 (08:49→21:33)
[2017-08-09] MEDS: ATORVASTATIN CALCIUM 10 MG TAB PO SCH (08:49)
[2017-08-09] MEDS: SENNOSIDES/DOCUSATE SODIUM TAB PO SCH ×2 (08:54→21:25)
[2017-08-09] MEDS ORDERED: VERAPAMIL ER 240 MG TAB PO SCH (09:00)
[2017-08-09] MEDS ORDERED: Herbals/Supplements -Info Only PO SCH (09:00)
--- NOTE | 2017-08-09 11:54 | SOAPPROG ---
SOAP Progress Note Assessment/Plan: Assessment: 71-year-old woman with right cerebellar stroke which occurred on the day after discharge from the hospital following cardiac myomectomy for hypertrophic cardiomyopathy. * Debility status post right cerebellar stroke with right upper and lower extremity ataxia. Physical therapy and Occupational Therapy to optimize mobility and activities of daily living. * Possible cognitive impairments to be assessed and treated per Speech and Language Pathology. * Secondary stroke prophylaxis: Continue aspirin and atorvastatin. Monitor blood pressure. * Status post transaortic myomectomy for hypertrophic obstructive cardiomyopathy. The plan is for her to resume anticoagulation 2 weeks after stroke onset, 08/06/2017, per Cardiothoracic Surgery. * HTN. She has come out of the hospital on metoprolol as well as verapamil. During physical exam, she had a variable heart rate at times dropping as low as the high 40s. However, she is not symptomatic. She will be monitored and if her heart rate is becoming too slow or if she is symptomatic of either hypotension or bradycardia, medications will be adjusted. * Hypoxia. Pleural effusions seen on chest x-ray done on 07/30/2017; no subsequent thoracic imaging has been done. Will get chest x-ray and BNP. * Cryptogenic etiology of stroke. She should have a 30-day event monitor and will follow up with Cardiology after her discharge to initiate this monitoring. * Pain management. Continue acetaminophen and tramadol. * Prophylaxis. She is on aspirin as an antiplatelet agent. There is no anticoagulant ordered. She has ambulated as far as 150 feet. She is elderly and obese and is certainly at elevated risk for deep venous thrombosis. However , per the advice of Neurology and Cardiothoracic Surgery, she is not on any anticoagulation present. Mobility will be encouraged and she will have sequential compression devices at night and thromboembolic disease hose on otherwise. 08/09/17 14:44 Subjective: Patient reports dyspnea with ambulation. She denies dyspnea when supine. She has no cough, fevers or chills. She slept well, better than she slept in the hospital. She is not in pain. Objective: Vital Signs Temp Pulse Resp BP Pulse Ox 36.9 C 63 15 165/69 H 91 L 08/09/17 08:00 08/09/17 08:49 08/09/17 08:00 08/09/17 08:54 08/09/17 09:57 Laboratory Results 08/09/17 06:30 08/08/17 08/09/17 08/10/17 05:59 05:59 05:59 Intake Total 440 318 Output Total 150 Balance 440 168 Physical Exam - Physical Exam General Appearance: WD/WN, alert, no apparent distress, obese Respiratory: normal breath sounds, decreased breath sounds (Bilaterally lower lobes.), No rales, No rhonchi, No wheezing Cardiac/Chest: regular rate, rhythm, No edema, No JVD Skin: normal color, warm/dry, other (Sternal incision with eschar, no erythema swelling or exudate.) Neuro/Psych: alert, normal mood/affect, oriented x 3, motor weakness (RUE ataxia ) ICD10 Worksheet Patient Problems: Problems Problem Status Onset Acute blood loss anemia Acute Acute chest pain Acute CVA (cerebral vascular accident) Acute S/P ventricular septal myectomy Acute ~07/25/17 HTN (hypertension) Chronic 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
[2017-08-09 16:31] LABS: ALANINE AMINOTRANSFERASE 42 IU/L (9-52); ALBUMIN 3.7 g/dL (3.5-5.0); ALKALINE PHOSPHATASE 59 IU/L (38-126); ANION GAP 13 mEq/L (8-16); ASPARTATE AMINOTRANSFERASE 43 IU/L (14-46); BILIRUBIN,TOTAL 0.7 mg/dL (0.1-1.4); CALCIUM 8.9 mg/dL (8.5-10.4); CARBON DIOXIDE 26 mEq/l (22-31); CHLORIDE 101 mEq/L (97-110); CREATININE 0.6 mg/dL (0.6-1.0); GLOMERULAR FILTRATION RATE > 60; GLUCOSE 119 mg/dL (70-100); POTASSIUM 3.8 mEq/L (3.5-5.2); SODIUM 140 mEq/L (134-144); TOTAL PROTEIN 6.7 g/dL (6.3-8.2)
[2017-08-10] MEDS: ASPIRIN EC 81 MG TAB PO SCH (08:22)
[2017-08-10] MEDS: METOPROLOL SUCCINATE XR 50 MG TAB PO SCH ×2 (08:22→21:37)
[2017-08-10] MEDS: LISINOPRIL 5 MG TAB PO SCH (08:23)
[2017-08-10] MEDS: FUROSEMIDE 20 MG TAB PO SCH (08:23)
[2017-08-10] MEDS: ATORVASTATIN CALCIUM 10 MG TAB PO SCH (08:23)
[2017-08-10] MEDS: SENNOSIDES/DOCUSATE SODIUM TAB PO SCH ×2 (08:25→21:37)
--- NOTE | 2017-08-10 12:10 | SOAPPROG ---
SOAP Progress Note Assessment/Plan: Assessment: 71-year-old woman with right cerebellar stroke which occurred on the day after discharge from the hospital following cardiac myomectomy for hypertrophic cardiomyopathy. * Debility status post right cerebellar stroke with right upper and lower extremity ataxia. Initial functional independence measure 70 on 08/10/2017. Maximal assistance for bed mobility due to sternal precautions moderate assistance for dressing. Noted to have intact peripheral vision though she has nonspecific complaints about her site. Continue Physical therapy and Occupational Therapy to optimize mobility and activities of daily living. * Possible cognitive impairment. Noted to have decreased memory stay, speed of processing and planning. She has a 2nd grade education. She has good insight into her current condition. Continue Speech and Language Pathology. * Secondary stroke prophylaxis: Continue aspirin and atorvastatin. Monitor blood pressure. * Status post transaortic myomectomy for hypertrophic obstructive cardiomyopathy. Resume anticoagulation 2 weeks after stroke onset, 08/06/2017, per Cardiothoracic Surgery. * Diastolic congestive heart failure. Enlarged heart on chest x-ray and elevated BNP. Chest x-ray yesterday to evaluate hypoxia was read as left lower lobe pneumonia by Radiology, however she has no cough no stay, no sputum, no fevers, no chills, normal white blood cell countl and low procalcitonin. Initiated treatment for heart failure with lisinopril 5 mg p.o. q.day and furosemide 20 mg p.o. q.day. Continue to monitor. * HTN. She has come out of the hospital on metoprolol succinate 50 mg p.o. twice daily as well as verapamil 240 mg p.o. q.day. Discontinued verapamil starting 08/10/2017 and initiated lisinopril at 5 mg p.o. q.day. Furosemide will likely be short term. Continue to monitor blood pressures and adjust medications as indicated. * Cryptogenic etiology of stroke. She should have a 30-day event monitor and will follow up with Cardiology after her discharge to initiate this monitoring. * Pain management. Continue acetaminophen and tramadol. * Prophylaxis. She is on aspirin as an antiplatelet agent. There is no anticoagulant ordered. She has ambulated as far as 150 feet. She is elderly and obese and is certainly at elevated risk for deep venous thrombosis. However , per the advice of Neurology and Cardiothoracic Surgery, she is not on any anticoagulation present. Mobility will be encouraged and she will have sequential compression devices at night and thromboembolic disease hose on otherwise. Attended staffing, 15 minutes. Discussed with case management, dietitian, nursing, PT, OT, [employer]IST. Tentative discharge date of 08/17 set. 08/10/17 11:57 Subjective: Continues to feel fatigued when working with therapies. Denies cough, dyspnea, fevers or chills. Has noticed increased urination this morning after treatment with furosemide. Not in pain. Slept well. Objective: Vital Signs Temp Pulse Resp BP Pulse Ox 36.7 C 78 16 142/78 H 92 08/10/17 06:09 08/10/17 08:22 08/10/17 06:09 08/10/17 08:23 08/10/17 06:09 Laboratory Results 08/09/17 06:30 08/09/17 15:00 08/09/17 08/10/17 08/11/17 05:59 05:59 05:59 Intake Total 440 1204 Output Total 1150 Balance 440 54 - Time Spent With Patient Time Spent With Patient: Greater than 35 minutes floor time today, including more than 50% of time in coordination of care during staffing meeting, and counseling patient. Physical Exam - Physical Exam General Appearance: WD/WN, alert, no apparent distress, obese Respiratory: normal breath sounds, other (Reduced respiratory excursion), No crackles, No rhonchi, No wheezing Cardiac/Chest: regular rate, rhythm, systolic murmur (1 to 2/6 systolic murmur at the left sternal border) Skin: normal color, warm/dry Neuro/Psych: alert, normal mood/affect, oriented x 3 ICD10 Worksheet Patient Problems: Problems Problem Status Onset Acute blood loss anemia Acute Acute chest pain Acute CVA (cerebral vascular accident) Acute S/P ventricular septal myectomy Acute ~07/25/17 HTN (hypertension) Chronic 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
[2017-08-10] MEDS ORDERED: FLU VACC QS 2017-18 (3YR+)/PF 0.5 ML SYR (FLUARIX QUAD) IM ONE (12:33)
[2017-08-11] MEDS: FUROSEMIDE 20 MG TAB PO SCH (08:41)
[2017-08-11] MEDS: ATORVASTATIN CALCIUM 10 MG TAB PO SCH (08:41)
[2017-08-11] MEDS: ASPIRIN EC 81 MG TAB PO SCH (08:41)
[2017-08-11] MEDS: ACETAMINOPHEN 325 MG TAB PO PRN (08:42)
[2017-08-11] MEDS: METOPROLOL SUCCINATE XR 50 MG TAB PO SCH ×2 (08:42→20:35)
[2017-08-11] MEDS: LISINOPRIL 5 MG TAB PO SCH (08:42)
[2017-08-11] MEDS: SENNOSIDES/DOCUSATE SODIUM TAB PO SCH ×2 (08:43→20:38)
--- NOTE | 2017-08-11 14:25 | SOAPPROG ---
SOAP Progress Note Assessment/Plan: Assessment: 71-year-old woman with right cerebellar stroke which occurred on the day after discharge from the hospital following cardiac myomectomy for hypertrophic cardiomyopathy. * Debility status post right cerebellar stroke with right upper and lower extremity ataxia. Initial functional independence measure 70 on 08/10/2017. Maximal assistance for bed mobility due to sternal precautions moderate assistance for dressing. Noted to have intact peripheral vision though she has nonspecific complaints about her site. Continue Physical therapy and Occupational Therapy to optimize mobility and activities of daily living. * Possible cognitive impairment. Noted to have decreased memory stay, speed of processing and planning. She has a 2nd grade education. She has good insight into her current condition. Continue Speech and Language Pathology. * Secondary stroke prophylaxis: Continue aspirin and atorvastatin. Monitor blood pressure. * Herpes labialis. Treat with valacyclovir 2000 mg tonight and tomorrow morning. * Status post transaortic myomectomy for hypertrophic obstructive cardiomyopathy. Resume anticoagulation 2 weeks after stroke onset, 08/06/2017, per Cardiothoracic Surgery. * Diastolic congestive heart failure. Improving with lisinopril 5 mg p.o. q.day and furosemide 20 mg p.o. q.day. Enlarged heart on chest x-ray and elevated BNP. Chest x-ray yesterday to evaluate hypoxia was read as left lower lobe pneumonia by Radiology, however she has no cough no stay, no sputum, no fevers, no chills, normal white blood cell countl and low procalcitonin. Repeat BMP and BNP on 08/12/2015. Daily weights. * HTN. Adequate control. She has come out of the hospital on metoprolol succinate 50 mg p.o. twice daily as well as verapamil 240 mg p.o. q.day. Discontinued verapamil starting 08/10/2017 and initiated lisinopril at 5 mg p.o. q.day. Furosemide will likely be short term. Continue to monitor blood pressures and adjust medications as indicated. * Cryptogenic etiology of stroke. She should have a 30-day event monitor and will follow up with Cardiology after her discharge to initiate this monitoring. * Pain management. Continue acetaminophen and tramadol. * Prophylaxis. She is on aspirin as an antiplatelet agent. There is no anticoagulant ordered. She has ambulated as far as 150 feet. She is elderly and obese and is certainly at elevated risk for deep venous thrombosis. However , per the advice of Neurology and Cardiothoracic Surgery, she is not on any anticoagulation present. Mobility will be encouraged and she will have sequential compression devices at night and thromboembolic disease hose on otherwise. Tentative discharge date of 08/17, home with family. 08/11/17 14:22 Subjective: C/O cold sore x1 day. Reports breathing is improved. Otherwise no complaints. Objective: Vital Signs Temp Pulse Resp BP Pulse Ox 36.9 C 63 16 129/95 H 93 08/11/17 08:00 08/11/17 08:42 08/11/17 08:00 08/11/17 08:42 08/11/17 10:39 Laboratory Results 08/09/17 06:30 08/09/17 15:00 08/10/17 08/11/17 08/12/17 05:59 05:59 05:59 Intake Total 1204 826 300 Output Total 1150 Balance 54 826 300 Physical Exam - Physical Exam General Appearance: WD/WN, alert, no apparent distress, obese Respiratory: normal breath sounds, No crackles, No rhonchi, No wheezing Cardiac/Chest: regular rate, rhythm, No edema Skin: normal color, warm/dry, other (1/2 cm swelling and erythema left lateral lower lip.) Neuro/Psych: alert, normal mood/affect, oriented x 3, abnormal gait (Observed in physical therapy. Descending 3 steps with a step 2 pattern initiating on the right. Ambulate short distance no device contact guard per therapist. Able to sit without using hand on arms of chair.) ICD10 Worksheet Patient Problems: Problems Problem Status Onset Acute blood loss anemia Acute Acute chest pain Acute CVA (cerebral vascular accident) Acute S/P ventricular septal myectomy Acute ~07/25/17 HTN (hypertension) Chronic 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
[2017-08-11] MEDS: valACYclovir 500 MG TAB PO SCH (20:35)
[2017-08-12 07:58] LABS: ANION GAP 13 mEq/L (8-16); CALCIUM 9.4 mg/dL (8.5-10.4); CARBON DIOXIDE 24 mEq/l (22-31); CHLORIDE 104 mEq/L (97-110); CREATININE 0.7 mg/dL (0.6-1.0); GLOMERULAR FILTRATION RATE > 60; GLUCOSE 107 mg/dL (70-100); POTASSIUM 4.7 mEq/L (3.5-5.2); SODIUM 141 mEq/L (134-144)
[2017-08-12] MEDS: LISINOPRIL 5 MG TAB PO SCH (08:43)
[2017-08-12] MEDS: METOPROLOL SUCCINATE XR 50 MG TAB PO SCH ×2 (08:43→20:03)
[2017-08-12] MEDS: ATORVASTATIN CALCIUM 10 MG TAB PO SCH (08:44)
[2017-08-12] MEDS: ASPIRIN EC 81 MG TAB PO SCH (08:44)
[2017-08-12] MEDS: valACYclovir 500 MG TAB PO SCH (08:44)
[2017-08-12] MEDS: FUROSEMIDE 20 MG TAB PO SCH (08:44)
[2017-08-12] MEDS: SENNOSIDES/DOCUSATE SODIUM TAB PO SCH ×2 (08:47→20:04)
--- NOTE | 2017-08-12 11:40 | SOAPPROG ---
SOAP Progress Note Assessment/Plan: Assessment: 71-year-old woman with right cerebellar stroke 08/02/2017, which occurred on the day after discharge from the hospital following cardiac myomectomy for hypertrophic cardiomyopathy. * Debility status post right cerebellar stroke with right upper and lower extremity ataxia. Initial functional independence measure 70 on 08/10/2017. Maximal assistance for bed mobility due to sternal precautions moderate assistance for dressing. Noted to have intact peripheral vision though she has nonspecific complaints about her vision. Continue physical therapy and occupational Therapy to optimize mobility and activities of daily living. * Possible cognitive impairments. Noted to have decreased memory stay, speed of processing and planning. She has a 2nd grade education. She has good insight into her current condition. Continue Speech and Language Pathology. * Secondary stroke prophylaxis: Continue aspirin and atorvastatin. Monitor blood pressure. * Status post transaortic myomectomy for hypertrophic obstructive cardiomyopathy. The plan is for her to resume anticoagulation 2 weeks after stroke onset, 08/16/2017, per Cardiothoracic Surgery. * Diastolic congestive heart failure. Enlarged heart on chest x-ray and elevated BNP. Chest x-ray yesterday to evaluate hypoxia was read as left lower lobe pneumonia by Radiology, however she has no cough no stay, no sputum, no fevers, no chills, normal white blood cell countl and low procalcitonin. Initiated treatment for heart failure with lisinopril 5 mg p.o. q.day and furosemide 20 mg p.o. q.day. Renal function and electrolytes normal 08/12/2017; BP and P remains elevated. Continue furosemide.. * HTN. She has come out of the hospital on metoprolol succinate 50 mg p.o. twice daily as well as verapamil 240 mg p.o. q.day. Discontinued verapamil starting 08/10/2017 and initiated lisinopril at 5 mg p.o. q.day. Furosemide will likely be short term. Continue to monitor blood pressures and adjust medications as indicated. * Cryptogenic etiology of stroke. She should have a 30-day event monitor and will follow up with Cardiology after her discharge to initiate this monitoring. * Pain management. Continue acetaminophen and tramadol. * Prophylaxis. She is on aspirin as an antiplatelet agent. There is no anticoagulant ordered. She has ambulated as far as 150 feet. She is elderly and obese and is certainly at elevated risk for deep venous thrombosis. However , per the advice of Neurology and Cardiothoracic Surgery, she is not on any anticoagulation present. Mobility will be encouraged and she will have sequential compression devices at night and thromboembolic disease hose on otherwise. Plans to go home with . Goal discharge date of 08/17/2017. 08/12/17 11:34 Subjective: Did not sleep as well last night. Says she was not sleepy. Did not have dyspnea with lying down and no cough. Overall her breathing is better. No fevers, chills. Objective: Vital Signs Temp Pulse Resp BP Pulse Ox 36.6 C 77 15 139/68 H 93 08/12/17 07:21 08/12/17 08:43 08/12/17 07:21 08/12/17 08:43 08/12/17 07:21 Laboratory Results 08/09/17 06:30 08/12/17 06:00 08/11/17 08/12/17 08/13/17 05:59 05:59 05:59 Intake Total 826 1080 120 Balance 826 1080 120 Physical Exam - Physical Exam General Appearance: WD/WN, alert, no apparent distress Respiratory: normal breath sounds, No crackles, No rhonchi, No wheezing Cardiac/Chest: regular rate, rhythm, No edema Skin: normal color, warm/dry Neuro/Psych: alert, normal mood/affect ICD10 Worksheet Patient Problems: Problems Problem Status Onset Acute blood loss anemia Acute Acute chest pain Acute CVA (cerebral vascular accident) Acute S/P ventricular septal myectomy Acute ~07/25/17 HTN (hypertension) Chronic 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
[2017-08-12] MEDS: traMADol 50 MG TAB PO PRN (20:04)
[2017-08-13] MEDS: ACETAMINOPHEN 325 MG TAB PO PRN (09:04)
[2017-08-13] MEDS: ASPIRIN EC 81 MG TAB PO SCH (09:05)
[2017-08-13] MEDS: ATORVASTATIN CALCIUM 10 MG TAB PO SCH (09:05)
[2017-08-13] MEDS: FUROSEMIDE 20 MG TAB PO SCH (09:06)
[2017-08-13] MEDS: SENNOSIDES/DOCUSATE SODIUM TAB PO SCH ×2 (09:06→20:15)
[2017-08-13] MEDS: METOPROLOL SUCCINATE XR 50 MG TAB PO SCH ×2 (09:32→20:14)
[2017-08-13] MEDS: LISINOPRIL 5 MG TAB PO SCH (09:34)
--- NOTE | 2017-08-13 13:28 | SOAPPROG ---
SOAP Progress Note Assessment/Plan: Assessment: 71-year-old woman with right cerebellar stroke 08/02/2017, which occurred on the day after discharge from the hospital following cardiac myomectomy for hypertrophic cardiomyopathy. * Debility status post right cerebellar stroke with right upper and lower extremity ataxia. Initial functional independence measure 70 on 08/10/2017. Maximal assistance for bed mobility due to sternal precautions moderate assistance for dressing. Noted to have intact peripheral vision though she has nonspecific complaints about her vision. Continue physical therapy and occupational Therapy to optimize mobility and activities of daily living. * Possible cognitive impairments. Noted to have decreased memory, speed of processing and planning. She has a 2nd grade education. She has good insight into her current condition. Continue Speech and Language Pathology. * Secondary stroke prophylaxis: Continue aspirin and atorvastatin. Monitor blood pressure. * Status post transaortic myomectomy for hypertrophic obstructive cardiomyopathy. The plan is for her to resume anticoagulation 2 weeks after stroke onset, 08/16/2017, per Cardiothoracic Surgery. * Diastolic congestive heart failure. Enlarged heart on chest x-ray and elevated BNP. Chest x-ray 08/09/2017 to evaluate hypoxia was read as left lower lobe pneumonia by Radiology, however she has no cough, no sputum, no fevers, no chills, normal white blood cell countl and low procalcitonin. Initiated treatment for heart failure with lisinopril 5 mg p.o. q.day and furosemide 20 mg p.o. q.day. Renal function and electrolytes normal 08/12/2017; BNP remains elevated. Continue furosemide. Recheck BMP & BNP 08/14/2017. * HTN. She has come out of the hospital on metoprolol succinate 50 mg p.o. twice daily as well as verapamil 240 mg p.o. q.day. Discontinued verapamil starting 08/10/2017 and initiated lisinopril at 5 mg p.o. q.day. Furosemide will likely be short term. Continue to monitor blood pressures and adjust medications as indicated. * Cryptogenic etiology of stroke. She should have a 30-day event monitor and will follow up with Cardiology after her discharge to initiate this monitoring. * Pain management. Continue acetaminophen and tramadol. * Prophylaxis. She is on aspirin as an antiplatelet agent. There is no anticoagulant ordered. She has ambulated as far as 150 feet. She is elderly and obese and is certainly at elevated risk for deep venous thrombosis. However , per the advice of Neurology and Cardiothoracic Surgery, she is not on any anticoagulation present. Mobility will be encouraged and she will have sequential compression devices at night and thromboembolic disease hose on otherwise. Plans to go home with . Goal discharge date of 08/17/2017. 08/13/17 13:26 Subjective: No complaints. Doing well. Denies dyspnea or cough. Staff notes that she becomes dyspneic with ambulation. Sleeping well. Objective: Vital Signs Temp Pulse Resp BP Pulse Ox 37.0 C 73 16 136/80 H 96 08/13/17 06:44 08/13/17 09:42 08/13/17 06:44 08/13/17 09:42 08/13/17 09:42 Laboratory Results 08/09/17 06:30 08/12/17 06:00 08/12/17 08/13/17 08/14/17 05:59 05:59 05:59 Intake Total 1080 880 360 Output Total 450 Balance 1080 430 360 Physical Exam - Physical Exam General Appearance: WD/WN, alert, no apparent distress, obese Respiratory: normal breath sounds, No crackles, No rhonchi, No wheezing Skin: normal color, warm/dry Neuro/Psych: alert, normal mood/affect, oriented x 3 ICD10 Worksheet Patient Problems: Problems Problem Status Onset Acute blood loss anemia Acute Acute chest pain Acute CVA (cerebral vascular accident) Acute S/P ventricular septal myectomy Acute ~07/25/17 HTN (hypertension) Chronic 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
[2017-08-13] MEDS: traMADol 50 MG TAB PO PRN (20:15)
[2017-08-14] MEDS: ASPIRIN EC 81 MG TAB PO SCH (07:52)
[2017-08-14] MEDS: FUROSEMIDE 20 MG TAB PO SCH (07:53)
[2017-08-14] MEDS: LISINOPRIL 5 MG TAB PO SCH (07:53)
[2017-08-14] MEDS: ATORVASTATIN CALCIUM 10 MG TAB PO SCH (07:53)
[2017-08-14] MEDS: SENNOSIDES/DOCUSATE SODIUM TAB PO SCH ×2 (07:54→21:12)
[2017-08-14] MEDS: METOPROLOL SUCCINATE XR 50 MG TAB PO SCH ×2 (07:54→21:05)
--- NOTE | 2017-08-14 11:16 | SOAPPROG ---
SOAP Progress Note Assessment/Plan: Assessment: 71-year-old woman with right cerebellar stroke 08/02/2017, which occurred on the day after discharge from the hospital following cardiac myomectomy for hypertrophic cardiomyopathy. * Debility status post right cerebellar stroke with right upper and lower extremity ataxia. Initial functional independence measure 70 on 08/10/2017. Maximal assistance for bed mobility due to sternal precautions moderate assistance for dressing. Noted to have intact peripheral vision though she has nonspecific complaints about her vision. Continue physical therapy and occupational Therapy to optimize mobility and activities of daily living. * Possible cognitive impairments. Noted to have decreased memory, speed of processing and planning. She has a 2nd grade education. She has good insight into her current condition. Continue Speech and Language Pathology. * Secondary stroke prophylaxis: Continue aspirin and atorvastatin. Monitor blood pressure. * Status post transaortic myomectomy for hypertrophic obstructive cardiomyopathy. The plan is for her to resume anticoagulation 2 weeks after stroke onset, 08/16/2017, per Cardiothoracic Surgery. * Diastolic congestive heart failure. Enlarged heart on chest x-ray and elevated BNP. Chest x-ray 08/09/2017 to evaluate hypoxia was read as left lower lobe pneumonia by Radiology, however she has no cough, no sputum, no fevers, no chills, normal white blood cell count and low procalcitonin. Initiated treatment for heart failure with lisinopril 5 mg p.o. q.day and furosemide 20 mg p.o. q.day. Renal function and electrolytes normal 08/12/2017; BNP remains elevated. Continue furosemide. Recheck BMP & BNP 08/14/2017. * HTN. She has come out of the hospital on metoprolol succinate 50 mg p.o. twice daily as well as verapamil 240 mg p.o. q.day. Discontinued verapamil starting 08/10/2017 and initiated lisinopril at 5 mg p.o. q.day. Furosemide will likely be short term. Continue to monitor blood pressures and adjust medications as indicated. * Cryptogenic etiology of stroke. She should have a 30-day event monitor and will follow up with Cardiology after her discharge to initiate this monitoring. * Pain management. Continue acetaminophen and tramadol. * Prophylaxis. She is on aspirin as an antiplatelet agent. There is no anticoagulant ordered. She has ambulated as far as 150 feet. She is elderly and obese and is certainly at elevated risk for deep venous thrombosis. However , per the advice of Neurology and Cardiothoracic Surgery, she is not on any anticoagulation present. Mobility will be encouraged and she will have sequential compression devices at night and thromboembolic disease hose on otherwise. Plans to go home with . Goal discharge date of 08/17/2017. 08/14/17 11:15 Subjective: No complaints. Denies cough or dyspnea. Slept well. Asks about the expected duration of the cold sore. Objective: Vital Signs Temp Pulse Resp BP Pulse Ox 36.7 C 58 L 16 150/82 H 91 L 08/14/17 07:56 08/14/17 07:56 08/14/17 07:56 08/14/17 07:56 08/14/17 07:56 Laboratory Results 08/09/17 06:30 08/12/17 06:00 08/13/17 08/14/17 08/15/17 05:59 05:59 05:59 Intake Total 880 880 120 Output Total 450 Balance 430 880 120 Physical Exam - Physical Exam General Appearance: WD/WN, alert, no apparent distress Respiratory: normal breath sounds, No crackles, No rhonchi, No wheezing Cardiac/Chest: regular rate, rhythm, No edema, No JVD Skin: normal color, warm/dry, other (Left lower lip with 1 cm eschar.) Neuro/Psych: alert, normal mood/affect, oriented x 3, other (Ambulates with physical therapy normal gait using front wheeled walker.) ICD10 Worksheet Patient Problems: Problems Problem Status Onset Acute blood loss anemia Acute Acute chest pain Acute CVA (cerebral vascular accident) Acute S/P ventricular septal myectomy Acute ~07/25/17 HTN (hypertension) Chronic 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
[2017-08-15 07:56] LABS: ANION GAP 13 mEq/L (8-16); CALCIUM 9.1 mg/dL (8.5-10.4); CARBON DIOXIDE 24 mEq/l (22-31); CHLORIDE 103 mEq/L (97-110); CREATININE 0.7 mg/dL (0.6-1.0); GLOMERULAR FILTRATION RATE > 60; GLUCOSE 111 mg/dL (70-100); POTASSIUM 4.2 mEq/L (3.5-5.2); SODIUM 140 mEq/L (134-144)
[2017-08-15] MEDS: ASPIRIN EC 81 MG TAB PO SCH (08:22)
[2017-08-15] MEDS: FUROSEMIDE 20 MG TAB PO SCH (08:22)
[2017-08-15] MEDS: ATORVASTATIN CALCIUM 10 MG TAB PO SCH (08:22)
[2017-08-15] MEDS: METOPROLOL SUCCINATE XR 50 MG TAB PO SCH ×2 (08:23→20:34)
[2017-08-15] MEDS: LISINOPRIL 5 MG TAB PO SCH (08:23)
[2017-08-15] MEDS: SENNOSIDES/DOCUSATE SODIUM TAB PO SCH ×2 (08:23→20:35)
--- NOTE | 2017-08-15 11:05 | SOAPPROG ---
SOAP Progress Note Assessment/Plan: Assessment: 71-year-old woman with right cerebellar stroke 08/02/2017, which occurred on the day after discharge from the hospital following cardiac myomectomy for hypertrophic cardiomyopathy. * Debility status post right cerebellar stroke with right upper and lower extremity ataxia. Initial functional independence measure 70 on 08/10/2017. Maximal assistance for bed mobility due to sternal precautions moderate assistance for dressing. Noted to have intact peripheral vision though she has nonspecific complaints about her vision. Continue physical therapy and occupational Therapy to optimize mobility and activities of daily living. * Possible cognitive impairments. Noted to have decreased memory, speed of processing and planning. She has a 2nd grade education. She has good insight into her current condition. Continue Speech and Language Pathology. * Secondary stroke prophylaxis: Continue aspirin and atorvastatin. Monitor blood pressure. * Status post transaortic myomectomy for hypertrophic obstructive cardiomyopathy. D/W Ignacia, nurse for CT Surgeon Dr. Adam, 08/15/17: no iindication for anticoagulation. Continue aspirin. * Diastolic congestive heart failure. Enlarged heart on chest x-ray and elevated BNP. Chest x-ray 08/09/2017 to evaluate hypoxia was read as left lower lobe pneumonia by Radiology, however she has no cough, no sputum, no fevers, no chills, normal white blood cell count and low procalcitonin. Initiated treatment for heart failure with lisinopril 5 mg p.o. q.day and furosemide 20 mg p.o. q.day. Renal function and electrolytes normal 08/12/2017; BNP remains elevated. Continue furosemide. BMP wnl & BNP elevated but mildly reduced on labs 08/15/2017. Continue lisinopril and furosemide. * HTN. She has come out of the hospital on metoprolol succinate 50 mg p.o. twice daily as well as verapamil 240 mg p.o. q.day. Discontinued verapamil starting 08/10/2017 and initiated lisinopril at 5 mg p.o. q.day. Furosemide will likely be short term. Continue to monitor blood pressures and adjust medications as indicated. * Cryptogenic etiology of stroke. She should have a 30-day event monitor and will follow up with Cardiology after her discharge to initiate this monitoring. * Pain management. Continue acetaminophen and tramadol. * Prophylaxis. She is on aspirin as an antiplatelet agent. There is no anticoagulant ordered. She has ambulated as far as 150 feet. She is elderly and obese and is certainly at elevated risk for deep venous thrombosis. Mobility will be encouraged and she will have sequential compression devices at night and LYN hose on otherwise. Plans to go home with . Goal discharge date of 08/17/2017. Follow-up [facility] Dr. Pleitez 08/25/17 at 9:[address] Kia Ruggiero on 09/06/17 at 10:30. 08/15/17 15:45 Subjective: Reports that her right hand is not working. She slept well, no cough, dyspnea, fevers, chills. Objective: Vital Signs Temp Pulse Resp BP Pulse Ox 36.5 C 63 16 126/56 H 97 08/15/17 06:45 08/15/17 08:23 08/15/17 06:45 08/15/17 08:23 08/15/17 06:45 Laboratory Results 08/09/17 06:30 08/15/17 06:00 08/14/17 08/15/17 08/16/17 05:59 05:59 05:59 Intake Total 880 440 Output Total 200 Balance 880 240 Physical Exam - Physical Exam General Appearance: WD/WN, alert, no apparent distress Respiratory: No respiratory distress, No accessory muscle use Skin: normal color, warm/dry Neuro/Psych: alert, normal mood/affect, oriented x 3, abnormal gait (Slightly wide-based, slow with short steps, using cane and left hand.), motor weakness ( Able to move right upper extremity, wrist and hand at all joints. Ataxia noted. ) ICD10 Worksheet Patient Problems: Problems Problem Status Onset Acute blood loss anemia Acute Acute chest pain Acute CVA (cerebral vascular accident) Acute S/P ventricular septal myectomy Acute ~07/25/17 HTN (hypertension) Chronic 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
[2017-08-15] MEDS ORDERED: FLU VACC QS 2017-18 (3YR+)/PF 0.5 ML SYR (FLUARIX QUAD) IM ONE (11:49)
[2017-08-15] MEDS: DOCOSANOL 2 GM CREAM TP SCH ×4 (14:07→20:36)
[2017-08-16] MEDS: DOCOSANOL 2 GM CREAM TP SCH ×5 (05:28→21:04)
[2017-08-16] MEDS: LISINOPRIL 5 MG TAB PO SCH (08:48)
[2017-08-16] MEDS: ASPIRIN EC 81 MG TAB PO SCH (08:48)
[2017-08-16] MEDS: FUROSEMIDE 20 MG TAB PO SCH (08:48)
[2017-08-16] MEDS: METOPROLOL SUCCINATE XR 50 MG TAB PO SCH ×2 (08:55→21:02)
[2017-08-16] MEDS: ATORVASTATIN CALCIUM 10 MG TAB PO SCH (08:55)
[2017-08-16] MEDS: SENNOSIDES/DOCUSATE SODIUM TAB PO SCH ×2 (08:56→23:35)
--- NOTE | 2017-08-16 10:16 | SOAPPROG ---
SOAP Progress Note Assessment/Plan: 71-year-old woman with right cerebellar stroke 08/02/2017, which occurred on the day after discharge from the hospital following cardiac myomectomy for hypertrophic cardiomyopathy. Today's update: Patient endorses neurological progress, increasing strength. No new concerns. No changes to the medical plan below. Patient is new to me, all medical issues are new to this provider. * Impaired mobility and self-care status post right cerebellar stroke with right upper and lower extremity ataxia. Initial functional independence measure 70 on 08/10/2017. Maximal assistance for bed mobility due to sternal precautions moderate assistance for dressing. Noted to have intact peripheral vision though she has nonspecific complaints about her vision. Continue physical therapy and occupational Therapy to optimize mobility and activities of daily living. * Possible cognitive impairments. Noted to have decreased memory, speed of processing and planning. She has a 2nd grade education. She has good insight into her current condition. Continue Speech and Language Pathology. * Secondary stroke prophylaxis: Continue aspirin and atorvastatin. Monitor blood pressure. * Status post transaortic myomectomy for hypertrophic obstructive cardiomyopathy. D/W Ignacia, nurse for CT Surgeon Dr. Adam, 08/15/17: no indication for anticoagulation. Continue aspirin. * Diastolic congestive heart failure. Enlarged heart on chest x-ray and elevated BNP. Chest x-ray 08/09/2017 to evaluate hypoxia was read as left lower lobe pneumonia by Radiology, however she has no cough, no sputum, no fevers, no chills, normal white blood cell count and low procalcitonin. Initiated treatment for heart failure with lisinopril 5 mg p.o. q.day and furosemide 20 mg p.o. q.day. Renal function and electrolytes normal 08/12/2017; BNP remains elevated. Continue furosemide. BMP wnl & BNP elevated but mildly reduced on labs 08/15/2017. Continue lisinopril and furosemide. * HTN. She has come out of the hospital on metoprolol succinate 50 mg p.o. twice daily as well as verapamil 240 mg p.o. q.day. Discontinued verapamil starting 08/10/2017 and initiated lisinopril at 5 mg p.o. q.day. Furosemide will likely be short term. Continue to monitor blood pressures and adjust medications as indicated. * Cryptogenic etiology of stroke. She should have a 30-day event monitor and will follow up with Cardiology after her discharge to initiate this monitoring. * Pain management. Continue acetaminophen and tramadol. * Prophylaxis. She is on aspirin as an antiplatelet agent. There is no anticoagulant ordered. She has ambulated as far as 150 feet. She is elderly and obese and is certainly at elevated risk for deep venous thrombosis. Mobility will be encouraged and she will have sequential compression devices at night and LYN hose on otherwise. Plans to go home with . Goal discharge date of 08/17/2017, tbd. Follow-up [facility] Dr. Pleitez 08/25/17 at 9:[address] Kia Ruggiero on 09/06/17 at 10:30. 08/16/17 10:13 08/16/17 10:16 Subjective: chief complaint: Neurological improvement No acute events overnight. Patient endorses improving strength and coordination , feels that her legs are stronger and helping her more. She gets some pain around the incision on her chest, but otherwise denies any new chest pain, no new shortness of breath. She denies any new numbness or weakness and in fact states that things are getting stronger. Neither she nor her have any concerns today. They feel rehabilitation is going well. Objective: Vital Signs Temp Pulse Resp BP Pulse Ox 37.1 C 79 15 114/64 93 08/16/17 08:00 08/16/17 08:55 08/16/17 08:00 08/16/17 08:55 08/16/17 08:00 Laboratory Results 08/09/17 06:30 08/15/17 06:00 08/15/17 08/16/17 08/17/17 05:59 05:59 05:59 Intake Total 440 920 Output Total 200 Balance 240 920 Physical Exam - Physical Exam General Appearance: WD/WN, alert, No no apparent distress EENT: No scleral icterus (R), No scleral icterus (L) Respiratory: lungs clear, normal breath sounds, No respiratory distress, No accessory muscle use Cardiac/Chest: normal peripheral pulses, regular rate, rhythm, systolic murmur, No edema Skin: normal color, warm/dry, No cyanosis Extremities: No pedal edema, No swelling Neuro/Psych: alert, normal mood/affect ICD10 Worksheet Patient Problems: Problems Problem Status Onset Acute blood loss anemia Acute Acute chest pain Acute CVA (cerebral vascular accident) Acute S/P ventricular septal myectomy Acute ~07/25/17 HTN (hypertension) Chronic 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
[2017-08-17] MEDS: DOCOSANOL 2 GM CREAM TP SCH ×5 (07:29→20:59)
[2017-08-17] MEDS: ASPIRIN EC 81 MG TAB PO SCH (09:02)
[2017-08-17] MEDS: ATORVASTATIN CALCIUM 10 MG TAB PO SCH (09:02)
[2017-08-17] MEDS: METOPROLOL SUCCINATE XR 50 MG TAB PO SCH ×2 (09:02→20:59)
[2017-08-17] MEDS: FUROSEMIDE 20 MG TAB PO SCH (09:02)
[2017-08-17] MEDS: LISINOPRIL 5 MG TAB PO SCH (09:03)
[2017-08-17] MEDS: SENNOSIDES/DOCUSATE SODIUM TAB PO SCH ×2 (09:06→20:59)
--- NOTE | 2017-08-17 12:12 | SOAPPROG ---
SOAP Progress Note Assessment/Plan: Assessment: 71-year-old woman with right cerebellar stroke 08/02/2017, which occurred on the day after discharge from the hospital following cardiac myomectomy for hypertrophic cardiomyopathy. * Debility status post right cerebellar stroke with right upper and lower extremity ataxia. Initial functional independence measure 70 on 08/10/2017; improved to 86 as of 08/17/2017. Minimal assistance to sit up in bed, walked 280 feet standby assist with front wheeled walker. Accomplished curb step and car transfer with contact guard assist. Standby assist for ADLs. has been trained to assist. Continue physical therapy and occupational Therapy to optimize mobility and activities of daily living. * Possible cognitive impairments. Mild deficits to memory and word-finding. She has a 2nd grade education. She has good insight into her current condition. Continue Speech and Language Pathology. * Secondary stroke prophylaxis: Continue aspirin and atorvastatin. Monitor blood pressure. * Status post transaortic myomectomy for hypertrophic obstructive cardiomyopathy. D/W Ignacia, nurse for CT Surgeon Dr. Adam, 08/15/17: no indication for anticoagulation. Continue aspirin. * Diastolic congestive heart failure, compensated. Enlarged heart on chest x- ray and elevated BNP. Chest x-ray 08/09/2017 to evaluate hypoxia was read as left lower lobe pneumonia by Radiology, however she has no cough, no sputum, no fevers, no chills, normal white blood cell count and low procalcitonin. Initiated treatment for heart failure with lisinopril 5 mg p.o. q.day and furosemide 20 mg p.o. q.day. Renal function and electrolytes normal 08/12/2017; BNP remains elevated. Continue furosemide. BMP wnl & BNP elevated but mildly reduced on labs 08/15/2017. Continue lisinopril and furosemide. * HTN. Adequate control with metoprolol 50 mg twice daily, lisinopril 5 minutes q.day, and furosemide 20 mg q.day. Continue to monitor blood pressures and adjust medications as indicated. * Cryptogenic etiology of stroke. She should have a 30-day event monitor and will follow up with Cardiology after her discharge to initiate this monitoring. * Pain management. Not using acetaminophen and tramadol since 08/13/2017. Reports diarrhea on laxative; will discontinue. * Prophylaxis. She is on aspirin as an antiplatelet agent. There is no anticoagulant ordered. She has ambulated as far as 150 feet. She is elderly and obese and is certainly at elevated risk for deep venous thrombosis. Mobility will be encouraged and she will have sequential compression devices at night and LYN hose on otherwise. Attended staffing, 15 minutes. Discussed with case management, dietitian, nursing, PT, OT, OFFICE ANALYST. Plans to go home with . Will have home PT and OT and subsequently outpatient cardiac rehabilitation. Discharged tomorrow, 2016. Follow-up [facility] Dr. Pleitez 08/25/17 at 9:[address] Kia Ruggiero on 09/06/17 at 10:30. 08/17/17 12:07 Subjective: Reports that when she lays down she has a feeling in her breathing which is not normal. Denies cough or dyspnea. No orthopnea, no paroxysmal nocturnal dyspnea , no fevers or chills. Objective: Vital Signs Temp Pulse Resp BP Pulse Ox 36.6 C 83 15 107/75 96 08/17/17 07:38 08/17/17 09:02 08/17/17 07:38 08/17/17 09:03 08/17/17 09:05 Laboratory Results 08/09/17 06:30 08/15/17 06:00 08/16/17 08/17/17 08/18/17 05:59 05:59 05:59 Intake Total 920 1000 150 Balance 920 1000 150 - Time Spent With Patient Time Spent With Patient: Greater than 35 minutes floor time today, including more than 50% of time in coordination of care during staffing meeting, and counseling patient and . Physical Exam - Physical Exam General Appearance: WD/WN, alert, no apparent distress Respiratory: normal breath sounds, No crackles, No rhonchi, No wheezing Cardiac/Chest: regular rate, rhythm, No JVD, No diastolic murmur, No systolic murmur Skin: normal color, warm/dry, other (Sternal incision with eschar, no erythema, purulence or discharge.) Neuro/Psych: alert, normal mood/affect, oriented x 3 ICD10 Worksheet Patient Problems: Problems Problem Status Onset Acute blood loss anemia Acute Acute chest pain Acute CVA (cerebral vascular accident) Acute S/P ventricular septal myectomy Acute ~07/25/17 HTN (hypertension) Chronic 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
[2017-08-18 07:19] VITALS: RESP 15; TEMP 97.5; O2SAT 94
[2017-08-18] MEDS: DOCOSANOL 2 GM CREAM TP SCH ×2 (07:21→10:13)
[2017-08-18] MEDS: ATORVASTATIN CALCIUM 10 MG TAB PO SCH (09:15)
[2017-08-18] MEDS: SENNOSIDES/DOCUSATE SODIUM TAB PO SCH (09:15)
[2017-08-18] MEDS: ASPIRIN EC 81 MG TAB PO SCH (09:15)
[2017-08-18] MEDS: FUROSEMIDE 20 MG TAB PO SCH (09:15)
[2017-08-18] MEDS: LISINOPRIL 5 MG TAB PO SCH (09:16)
[2017-08-18] MEDS: METOPROLOL SUCCINATE XR 50 MG TAB PO SCH (09:16)
[2017-08-18 09:20] VITALS: BP 115/57; PULSE 72
--- NOTE | 2017-08-18 10:31 | PDDCSUM ---
Discharge Summary Discharge Summary: Name: Latoya Ahn Admission date: 08/08/2017 Discharge date: 08/18/2017 Discharging physician: Willian Estrada MD, Salvatore Shabazz MD Admitting diagnosis: impairment group 1.3, bilateral involvement, mobility and self-care , cognitive impairments Discharge diagnosis: right cerebellar cerebral vascular accident Comorbid diagnoses: impairments in mobility, self-care, and cognition, status post transaortic myomectomy for hypertrophic obstructive cardiomyopathy, diastolic congestive heart failure, compensated, hypertension, cryptogenic etiology of stroke , morbid obesity, left ventricular hypertrophy Consultations: physical therapy, occupational therapy, speech language pathology , social work, dietary Procedures: chest x-ray from 08/09/2017 showed left lower lobe pneumonia and mildly enlarged cardiac silhouette. They felt that alveolar opacity in the left lower lobe was consistent with pneumonia. Mild pulmonary venous hypertension. (Patient was treated for volume overload and responded clinically , not treated for pneumonia) Reason for admission: Please see the history and physical by Dr. Shabazz dated 2016 for full details, but briefly the patient had recently had a transaortic myomectomy for hypertrophic obstructive cardiomyopathy by Dr. Lipscomb on 07/26/2017 and went home on 08/01/2017, returning to the hospital the next day with nausea, vomiting , dizziness and an MRI of the brain demonstrated a right cerebellar infarct. No cardiac source of emboli was detected on echocardiogram. CT angiography did not show any luminal thrombosis or dissection in the head and neck. No atrial fibrillation on telemetry and the stroke was considered cryptogenic. she was found have impairments in mobility, self-care, and cognition and a reasonable candidate for inpatient rehabilitation. She was admitted for inpatient rehabilitation on 08/08/2017 Rehabilitation course: she made excellent progress in inpatient rehabilitation , persistently participating in therapies and making progress. She did not have any significant problems during rehabilitation. On discharge she is requiring cues for safety and assistive devices for mobility, able to be in a wheelchair at a supervision level. She needs cues for setup and safety for activities of daily living and some assistance for bathing. She needs some steadying assistance for toileting. She needs some cuing during eating, but otherwise she is at a modified independence level for cognition and comprehension, as well as memory and problem solving. She is discharging home with assistive equipment, also help from her spouse and family. She will get [facility] on discharge. from medical standpoint, she continued on secondary stroke prophylaxis, will be following up with Dr. Lipscomb after surgery. She was also diuresed somewhat for her fluid overload with diastolic congestive heart failure that is compensated. Chest x-ray was read as lower lobe opacities, possibly consistent with pneumonia however when she was diuresed she responded clinically. She was never treated for pneumonia. She will need a 30 day event monitor after discharge and will follow-up with cardiology for this. the original plan was for anticoagulation to restart on 08/16/2017, however Dr. Shabazz discussed the case with cardiothoracic surgery and the decision was made to hold off on any anticoagulation at this time but continue aspirin. She also continued to be adequately controlled regarding her hypertension on metoprolol 50 mg twice a day and lisinopril 5 mg a day as well as furosemide 20 mg daily. She will need follow up with her primary care physician as well for ongoing monitoring. Discharge plan: Home with family and home health Condition: continue sternal precautions Medications at discharge: Abreva 1 application topical 5 times daily Furosemide 20 mg p. o. daily lisinopril 5 mg p. o. daily herbal supplements daily aspirin 81 mg daily acetaminophen 650 mg p.o. q.4 hours p.r.n. atorvastatin 10 mg p.o. daily Metoprolol XR 50 mg p.o. twice daily Pending studies: none. She will get outpatient monitoring for atrial fibrillation with her director of neurology. Issues to be addressed at follow-up: As noted above, it is recommended that she get a Holter monitor with cardiology. Additionally she will follow up with her primary care physician to ensure blood pressure control and fluid status control. She will also be following up with Dr. Lipscomb. consider additional follow-up with rehabilitation physician if necessary. She will have home health with PT, OT, cardiac rehab. Follow up: As above On the day of discharge, the patient's vital signs were stable, no new complaints or concerns. Discussed plan for discharge with a telephone snaker driving horses. A total of 35 minutes was spent on the day of discharge in the discharge planning process.
--- NOTE | 2017-08-18 11:45 | PDOREHIP ---
Admission IRF-PAT - Admission - 3 Day Assessment Period Admission Date/Day 1: 08/08/17 Day 2: 08/09/17 Day 3: 08/10/17 Discharge IRF-PAT - Discharge - 3 Day Assessment Period 2 Days Prior to Anticipated Discharge Date: 08/16/17 1 Day Prior to Anticipated Discharge Date: 08/17/17 Anticipated Discharge Date: 08/18/17 - Discharge Skin Conditions Unhealed Pressure Ulcer (1 or more/Stage 1 or >)-Discharge: 0. No
== END 2017-08-18 13:19 | disposition home health service (06) | DRG 57 ==
LOC: BREH 08-08 15:47
PROVIDERS: ADMIT Internal Medicine; ATTEND Physical Medicine & Rehabilitation
DX: I69.311 Memory deficit following cerebral infarction (principal); I69.314 Frontal lobe and executive function deficit following cerebral infarction; R26.2 Difficulty in walking, not elsewhere classified; D64.9 Anemia, unspecified; I42.1 Obstructive hypertrophic cardiomyopathy; E11.9 Type 2 diabetes mellitus without complications; I11.0 Hypertensive heart disease with heart failure; I08.0 Rheumatic disorders of both mitral and aortic valves; Z85.3 Personal history of malignant neoplasm of breast; Z90.11 Acquired absence of right breast and nipple; I50.30 Unspecified diastolic (congestive) heart failure; Z79.82 Long term (current) use of aspirin
CPT/HCPCS: 92507-GN; 92522-GN; 92610-GN; 97110-GO; 97110-GP; 97112-GO; 97116-GP; 97161-GP; 97166-GO; 97530-GO; 97530-GP; 97535-GO; G0008

== ENCOUNTER → 2017-09-06 | Outpatient (CLI) | payer OTHER | LOC: FIMAGING 11:34 | PROVIDERS: ATTEND Thoracic Surgery (Cardiothoracic Vascular Surgery) | DX: J40 Bronchitis, not specified as acute or chronic (principal) ==

== ENCOUNTER → 2018-01-31 | Outpatient (CLI) | payer OTHER | LOC: FIMAGING 12:56 | PROVIDERS: ATTEND Physician Assistant Medical | DX: N64.4 Mastodynia (principal); Z85.3 Personal history of malignant neoplasm of breast ==

== ENCOUNTER 2018-05-10 16:09 | Inpatient (IN) | payer OTHER ==
[~2018-05-10 16:09] MED LIST changes: -ADENOSINE 6 MG/2 ML VIAL ONE; -ALBUMIN 5% 250 ML BOTTLE IV ONE; -AMINOCAPROIC ACID 5 GM/20 ML VIAL IV ONE; -AMINOCAPROIC ACID 5 GM/20 ML VIAL ONE; -AMIODARONE HCL 150 MG/3 ML VIAL ONE; +ATROPINE SULFATE 1 MG/10 ML SYR ONE; -CALCIUM CHLORIDE 1 GM/10 ML INJ ONE; -CITRATE DEXTROSE SOLN 500 ML BAG MISC ONE; -CITRATE DEXTROSE SOLN 500 ML BAG ONE; -DOPamine/DEXTROSE/250 ML BAG IV ONE; -HEPARIN 10,000 UNIT/10 ML MDV ONE; -INSULIN REGULAR HUMAN 100 UNIT in NS 100 ML IV ONE; -LIDOCAINE 2% 100 MG/5 ML SYR ONE; -MAGNESIUM SULFATE 1 GM/2 ML VIAL ONE; -MANNITOL 25% 12.5 GM/50 ML VIAL IV ONE; -MILRINONE/DEXTROSE/100 ML BAG IV ONE; -MUPIROCIN 2% 22 GM OINT NS ONE; -NA BICARBONATE 50 MEQ/50 ML VIAL ONE; -NOREPINEPHRINE BITARTRATE 16 MG in NS 250 ML IV ONE; -NS 1,000 ML IV ONE; -PHENYLEPHRINE HCL 50 MG in NS 250 ML IV ONE; -POTASSIUM Cl (KCl) 20 MEQ/50 ML BAG IV ONE; -PROTAMINE SULFATE 50 MG/5 ML VIAL IVP ONE; -SODIUM BICARBONATE 20 MEQ, LIDOCAINE 1% 10 ML in NORMOSOL-R 1,000 ML MISC ONE; -ceFAZolin 1 GM VIAL ONE; -ceFAZolin 2 GM/DEXTROSE 100 ML IV ONE; -methylPREDNISolone SOD SUCC 1 GM/8 ML VIAL ONE; -niCARdipine/NACL 200 ML IV SCH; -niCARdipine/NACL/200 ML BAG IV ONE
--- NOTE | 2018-05-10 16:09 | EDPHY ---
H & P Time Seen by Provider: 05/10/18 16:09 HPI/ROS: CHIEF COMPLAINT: Heart block HISTORY OF PRESENT ILLNESS: Patient went to her clinic today feeling weak and tired for the past several weeks and was noted to be bradycardic with a rate of 35. Sent to the emergency department for further evaluation. Patient denies chest pain or syncope or fainting. She takes metoprolol but her dose is twice a day and has not changed it in months. REVIEW OF SYSTEMS: Eye: no change in vision ENT: no sore throat Cardiac: no chest pain or syncope Pulmonary: no cough or SOB Abdomen: no vomiting, diarrhea, abdominal pain Musculoskeletal: no back pain Skin: no rash Neuro: She says that her head feels a little strange but denies headache. Constitutional: no fever : no urinary symptoms A comprehensive 10 point review of systems is otherwise negative aside from elements mentioned in the history of present illness. PAST MEDICAL HISTORY: Includes hypertrophic cardiomyopathy with septal myotomy by Dr. Adam on 07/26/17, stroke. Diabetes, hypertension Social history: Primarily English-speaking, breakdown person Socorro Martins personally present for history and physical Temperature 37.5 degrees. General Appearance: Alert and conversant, cooperative. Eyes: No scleral icterus. ENT, Mouth: Normal mucous membranes. Respiratory: Normal respiratory effort, breath sounds equal, lungs are clear to auscultation. Cardiovascular: Regular rate and rhythm. Bradycardic. Gastrointestinal: Abdomen is soft and non tender. Neurological: Alert, face symmetric, normal motor and sensory in extremities. Was able to move herself from the ambulance gurney to the hospital bed unassisted. Skin: Warm and dry, no rashes. Musculoskeletal: No peripheral edema. Psychiatric: Not agitated. Emergency Department course/MDM: 1622: Discussed with Hailey, and admit Dave. Placed on monitor, patient has normal mentation and is not hypotensive. Critical care time spent by me, Dr. Vazquez, exclusively with the care of this patient was 30 minutes, exclusive of PA or STONE RIGGER time and exclusive of separate procedures. The organ system at risk was cardiac and I ordered multiple diagnostics, consultation with Cardiology, placing external pacer pads and continuous monitoring, to stabilize the patient and prevent worsening of the patient's condition. Constitutional: Initial Vital Signs Heart Rate 33 L 05/10/18 16:10 Respiratory Rate 13 05/10/18 16:10 Blood Pressure 260/70 H 05/10/18 16:10 O2 Sat (%) 94 05/10/18 16:10 O2 Delivery Mode Room Air Allergies/Adverse Reactions: No Known Allergies Allergy (Verified 08/02/17 11:52) Home Medications: Medication Instructions Recorded Aspirin EC [Aspirin EC 81 mg (*)] 81 mg PO DAILY 04/26/17 Herbals/Supplements -Info Only 1 ea PO DAILY 04/26/17 Acetaminophen [Tylenol 325mg (*)] 650 mg PO Q4HRS PRN tab 08/08/17 Furosemide [Lasix 20 MG (*)] 20 mg PO DAILY #30 tab 08/17/17 Albuterol Hfa Anes Only [Proair 2 puffs IH QID PRN 05/10/18 Hfa Icu (*)] Atorvastatin Calcium [Lipitor 10 10 mg PO HS 05/10/18 mg (*)] Lisinopril [Zestril 20 mg (*)] 20 mg PO DAILY 05/10/18 Metoprolol Succinate Xr [Toprol Xl 50 mg PO BIDAC 05/10/18 50 mg (*)] metFORMIN HCL [Glucophage 500 mg 500 mg PO BIDMEAL 05/10/18 (*)] Medical Decision Making - Diagnostics EKG Interpretation: 12-lead EKG interpreted by me; official reading is in trace master. My interpretation is 3rd degree heart block with ventricular rate of 35. Imaging Results: Imaging Impressions Chest X-Ray 05/10/18 16:21 Impression: 1. No focal pneumonia. 2. Mild to moderate cardiomegaly. No lor edema. Imaging: I viewed and interpreted images myself Differential Diagnosis: Differential for bradycardia considered including but not limited to 3rd degree heart block, second-degree heart block, sinus bradycardia, medication side effect - Data Points Medications Given: Amlodipine Besylate (Norvasc) 5 mg PO ONCE ONE Stop: 05/10/18 18:01 Last Admin: 05/10/18 17:52 Dose: 5 mg Departure - Departure Disposition: [facility] Acute Clinical Impression: Heart block AV complete Condition: Serious
--- NOTE | 2018-05-10 16:18 | CPEKG ---
Heart Rate: 34 RR Interval: 1765 QRSD Interval: 134 QT Interval: 640 QTC Interval: 482 P [place]: 64 QRS [place]: 61 T Wave [place]: -11 EKG Severity - ABNORMAL ECG - EKG Impression: COMPLETE AV BLOCK, A-RATE 82 EKG Impression: BORDERLINE LATERAL Q WAVES EKG Impression: REPOL ABNRM SUGGESTS ISCHEMIA, DIFFUSE LEADS Electronically Signed By: Roman Vazquez 10-May-2018 16:23:26
[2018-05-10 16:40] LABS: PLATELET COUNT 182 10^3/uL (150-400)
[2018-05-10 16:50] LABS: INR 1.01 (0.83-1.16); PROTIME(PATIENT) 13.5 SEC (12.0-15.0)
[2018-05-10] MEDS ORDERED: ONDANSETRON 4 MG/2 ML VIAL IVP PRN (17:06)
[2018-05-10] MEDS ORDERED: ONDANSETRON DISINTEGRATING 4 MG TAB PO PRN (17:06)
[2018-05-10] MEDS ORDERED: D50W 25 GM/50 ML SYR IVP PRN (17:18)
--- NOTE | 2018-05-10 17:45 | PDCARCONS ---
Cardiology Consult Reason for Consult: Third degree heart block, Hypertension, Bradycardia Chief Complaint: Hypertension, Weakness, Anxious Requesting Physician: Dr. Vazquez, ED Physician History of Present Illness: Edmar is a 72-year-old female with a history of HOCM s/p septal myotomy performed 07/26/[address] Adam. This surgery was complicated by stroke. Edmar also has a history of diabetes and hypertension. She takes Metoprolol BID. Edmar presented to the Emergency Department with ongoing fatigue and elevated blood pressure in the 200 mmHg systolic range. Her EKG shows complete heart block. Her blood pressure here is 243/52 and her heart rate is bradycardic at 34 bpm. The patient is Stateless speaking only. A turpentine farmer was present throughout the examination. History Information - Allergies/Home Medication List Allergies/Adverse Reactions: No Known Allergies Allergy (Verified 08/02/17 11:52) Home Medications: Aspirin EC [Aspirin EC 81 mg (*)] 81 mg PO DAILY 04/26/17 [Last Taken 05/10/18 08:00] Herbals/Supplements -Info Only 1 ea PO DAILY 04/26/17 [Last Taken 07/23/17] Albuterol Hfa Anes Only [Proair Hfa Icu (*)] 2 puffs IH QID PRN 05/10/18 [Last Taken 05/10/18 09:00] Atorvastatin Calcium [Lipitor 10 mg (*)] 10 mg PO HS 05/10/18 [Last Taken ] Lisinopril [Zestril 20 mg (*)] 20 mg PO DAILY 05/10/18 [Last Taken 05/10/18] Metoprolol Succinate Xr [Toprol Xl 50 mg (*)] 50 mg PO BIDAC 05/10/18 [Last Taken 05/09/18] metFORMIN HCL [Glucophage 500 mg (*)] 500 mg PO BIDMEAL 05/10/18 [Last Taken 11/14] I have personally reviewed and updated: family history, medical history, social history, surgical history Past Medical History: Hypertrophic Obstructive Cardiomyopathy - Past Medical History CVA, diabetes type 2, hypertension - Surgical History Additional surgical history: Septal Myotomy performed by Dr. Adam 07/26/2017. - Social History Smoking Status: Never smoked Drug Use: None Additional social history: . Family at bedside. Stateless speaking only. Cardiac History - Cardiac History Past Cardiac History: OTHER (HOCM s/p Septal Myotomy) Cardiac Risk Factors: hypertension (>140/90), diabetes mellitus Timing/Duration: Days Severity: severe Activities at Onset: none Associated Symptoms: chest pain, malaise, other (Hypertension) Physical Exam Physical Exam: Temp Pulse Resp BP Pulse Ox 37.1 C 34 L 16 231/68 H 94 05/10/18 16:55 05/10/18 16:55 05/10/18 16:55 05/10/18 16:55 05/10/18 16:55 Constitutional: no apparent distress Eyes: PERRL, anicteric sclera Ears, Nose, Mouth, Throat: moist mucous membranes, hearing normal Cardiovascular: systolic murmur, other (variable intensity S1) Respiratory: no respiratory distress, no rales or rhonchi, clear to auscultation Gastrointestinal: normoactive bowel sounds, soft, non-tender abdomen Skin: warm, normal color Neurologic: AAOx3 Psychiatric: interacting appropriately, not anxious, No depressed Lab and Imaging 05/10/18 16:26 05/10/18 16:26 WBC 8.94 10^3/uL (3.80-9.50) 05/10/18 16:26 RBC 5.29 10^6/uL (4.18-5.33) 05/10/18 16:26 Hgb 15.4 g/dL (12.6-16.3) 05/10/18 16:26 Hct 46.5 % (38.0-47.0) 05/10/18 16:26 MCV 87.9 fL (81.5-99.8) 05/10/18 16:26 MCH 29.1 pg (27.9-34.1) 05/10/18 16:26 MCHC 33.1 g/dL (32.4-36.7) 05/10/18 16:26 RDW 14.6 % (11.5-15.2) 05/10/18 16:26 Plt Count 182 10^3/uL (150-400) 05/10/18 16:26 MPV 11.7 fL (8.7-11.7) 05/10/18 16:26 Neut % (Auto) 53.8 % (39.3-74.2) 05/10/18 16:26 Lymph % (Auto) 33.6 % (15.0-45.0) 05/10/18 16:26 [place] % (Auto) 9.4 % (4.5-13.0) 05/10/18 16:26 Eos % (Auto) 2.1 % (0.6-7.6) 05/10/18 16:26 Baso % (Auto) 0.7 % (0.3-1.7) 05/10/18 16:26 Nucleat RBC Rel Count 0.0 % (0.0-0.2) 05/10/18 16:26 Absolute Neuts (auto) 4.81 10^3/uL (1.70-6.50) 05/10/18 16:26 Absolute Lymphs (auto) 3.00 10^3/uL (1.00-3.00) 05/10/18 16:26 Absolute Monos (auto) 0.84 10^3/uL (0.30-0.80) H 05/10/18 16:26 Absolute Eos (auto) 0.19 10^3/uL (0.03-0.40) 05/10/18 16:26 Absolute Basos (auto) 0.06 10^3/uL (0.02-0.10) 05/10/18 16: Absolute Nucleated RBC 0.00 10^3/uL (0-0.01) 05/10/18 16: Immature Gran % 0.4 % (0.0-1.1) 05/10/18 16: Immature Gran # 0.04 10^3/uL (0.00-0.10) 05/10/18 16:26 PT 13.5 SEC (12.0-15.0) 05/10/18 16:26 INR 1.01 (0.83-1.16) 05/10/18 16:26 APTT 36.9 SEC (23.0-38.0) 05/10/18 16:26 Sodium 144 mEq/L (135-145) 05/10/18 16:26 Potassium 4.1 mEq/L (3.3-5.0) 05/10/18 16:26 Chloride 108 mEq/L (97-110) 05/10/18 16:26 Carbon Dioxide 20 mEq/l (22-31) L 05/10/18 16:26 Anion Gap 16 mEq/L (8-16) 05/10/18 16:26 BUN 24 mg/dL (7-23) H 05/10/18 16:26 Creatinine 0.9 mg/dL (0.6-1.0) 05/10/18 16:26 Estimated GFR > 60 05/10/18 16:26 Glucose 97 mg/dL (70-100) 05/10/18 16:26 Calcium 9.0 mg/dL (8.5-10.4) 05/10/18 16:26 Visualized and Interpreted Chest x-ray results: No Visualized and Interpreted EKG results: Yes EKG additional interpertation: EKG shows complete heart block. Telemetry: complete heart block A/P Assessment: The patient has a history of HOCM s/p Septal Myotomy performed 07/17/17 which was complicated by stroke. She presented to the ED today with complaints of malaise, general weakness, and elevated blood pressure. Her blood pressure in the ICU is 243/52 and her heart rate is 34 bpm. We will try to control her blood pressure and avoid hypotension. She will require a permanent and dual chamber pacemaker. Low dose norvasc for this evening and no Nitroglycerin or diuretics should be given. Plan: Due to the patient's heart block beta blockers and calcium channel blockers are not recommended as they can cause severe hypotension quickly in patient's with slow heart rate with no atrial kick or synchrony. I would like to start the patient on 5mg Norvasc to help improve her blood pressure. In addition I recommend the patient have a CT of her head to rule out CVA, given her history of stroke. The elevated blood pressure and high pulse pressure with associated bradycardia. We will plan to insert a pacemaker tomorrow morning. The patient will continue to be monitored on telemetry. A temporary wire will be required in the event of longer pauses hypotension or asystole.
--- NOTE | 2018-05-10 17:53 | GHP ---
[f rep st] HISTORY AND PHYSICAL DATE OF ADMISSION: 05/10/2018 CHIEF COMPLAINT: Sent in by her PCP. HISTORY OF PRESENT ILLNESS: This is a 72-year-old female sent in by her PCP for bradycardia. She went to see her PCP today because her blood pressure has been elevated and she was felt significant anxiety. She has not had any chest pain. She has had a little bit of shortness of breath associated with anxiety, which has been intermittent and is not present right now. She has been able to slightly less than her normal amount of exercise for the past week or so. She tells me she can walk for about 25 minutes and has to stop and then can continue walking. She is taking metoprolol; however, she has actually decreased her dose recently. She is not taking any other constantino blockers that she knows about. PAST MEDICAL/SURGICAL HISTORY: 1. CVA. 2. Hypertrophic obstructive cardiomyopathy, status post transaortic cardiac myectomy in June of 2017. 3. Right breast cancer, status post mastectomy. 4. Subvalvular aortic stenosis. 5. Moderate mitral regurgitation. 6. Diabetes mellitus, type 2. 7. Hypertension. 8. Tonsillectomy. MEDICATIONS: Please see medication reconciliation. ALLERGIES: No known drug allergies. FAMILY HISTORY: Reviewed and noncontributory. SOCIAL HISTORY: She does not drink. She does not smoke. REVIEW OF SYSTEMS: 10-point review of systems is conducted and is negative, except per HPI. PHYSICAL EXAMINATION: VITAL SIGNS: Blood pressure 231/68, heart rate is 34, respiration rate 16, saturating 94% on room air, temperature is 37.1. GENERAL: The patient is a pleasant 72-year-old female who is in no acute distress. HEENT: Normocephalic, atraumatic. CARDIOVASCULAR: Bradycardic. There are no murmurs, rubs, or gallops. She has a well-healed medial sternotomy scar. PULMONARY: Lungs clear to auscultation bilaterally. ABDOMEN: Soft. She is nontender, nondistended. SKIN: No rash. : No Richardson. NEUROLOGIC: Shows her to be alert and oriented x3. She is moving all extremities. PSYCHIATRIC: Normal mood and affect. LABORATORY: CBC is unremarkable. INR is 1.0. Creatinine 0.9, bicarb is 20. DATA: 1. ECG, which I personally viewed and interpreted, shows complete heart block. She has biphasic T-wave in lead V2 and V3. 2. Chest x-ray, which I personally viewed and interpreted, shows cardiomegaly with nothing acute. IMPRESSION/PLAN: 1. Complete heart block: Cardiology has been consulted and will see her tonight. She will likely need a permanent pacemaker. For now, will hold her metoprolol. She has pacer pads on. She will go to the intensive care unit. She is currently compensated mentating with extremely high blood pressures. 2. Hypertension: Very limited in what we can use given her hypertrophic obstructive cardiomyopathy, as well as her complete heart block. Discussed this with Dr. Hart. He will continue a small dose of amlodipine. I will obtain a CT scan of her head to rule out [place]'s reflex with her marked hypertension and bradycardia, although I am not finding anything focal neurologic exam. 3. Hypertrophic obstructive cardiomyopathy, status post myomectomy: As above, we are limited in the antihypertensives that we can use. 4. Diabetes mellitus, type 2. Will hold her oral medications. Follow her glucoses and put her on a low dose of lispro. 5. Hypertension: Will wait till Cardiology decides on antihypertensive. 6. Cerebrovascular accident: She is on an aspirin and statin, will hold aspirin in the setting of likely need for surgery. BILLING: I spent 40 minutes of critical care time, including cardiology consultation seeing and examining her. She is at high risk for decompensation given complete heart block. /[id number]/MODL MTDD
[2018-05-10] MEDS ORDERED: amLODIPine BESYLATE 5 MG TAB PO ONE ×2 (18:00→22:30)
[2018-05-10] MEDS ORDERED: ALBUTEROL 60 PUFFS/8 GM MDI IH PRN (18:45)
[2018-05-10] MEDS: INSULIN LISPRO 100 UNIT/ML SC SCH (19:15)
[2018-05-10] MEDS: ATORVASTATIN CALCIUM 10 MG TAB PO SCH (20:56)
[2018-05-11 04:21] LABS: PLATELET COUNT 164 10^3/uL (150-400)
[2018-05-11 04:26] LABS: INR 1.15 (0.83-1.16); PROTIME(PATIENT) 14.9 SEC (12.0-15.0)
[2018-05-11] MEDS ORDERED: BACITRACIN IRRIGATION/NS 50,000 UNITS/1,000 ML BTL IRR ONE (06:00)
[2018-05-11] MEDS ORDERED: ceFAZolin 2 GM/DEXTROSE 100 ML IV ONE (06:00)
[2018-05-11] MEDS ORDERED: NS 1,000 ML IV ONE (06:00)
[2018-05-11] MEDS: INSULIN LISPRO 100 UNIT/ML SC SCH ×3 (07:40→18:00)
--- NOTE | 2018-05-11 08:41 | PDMN ---
Medical Necessity Medical necessity: Pt meets IP criteria per MD; est los >2 mn for eval/tx of complete heart block w/extremely high blood pressures & bradycardia; admit to ICU for further workup/close monitoring & Cardiology consult; requiring pacer pads w/probable placement of permanent pacemaker; hx hypertrophic obstructive cardiomyopathy s/p myectomy
[2018-05-11] MEDS: LISINOPRIL 20 MG TAB PO SCH (08:55)
[2018-05-11] MEDS ORDERED: FUROSEMIDE 20 MG TAB PO SCH (09:00)
[2018-05-11] MEDS ORDERED: fentaNYL 100 MCG/2 ML INJ ONE (09:36)
[2018-05-11] MEDS ORDERED: MIDAZOLAM 2 MG/2 ML VIAL ONE (09:36)
[2018-05-11] MEDS ORDERED: IOPAMIDOL (ISOVUE-300) 50 ML VIAL ONE (09:36)
[2018-05-11] MEDS ORDERED: LIDOCAINE 1% 300 MG/30 ML SDV ONE (09:36)
[2018-05-11] MEDS ORDERED: BUPIVACAINE 0.5% 30 ML SDV ONE (09:37)
[2018-05-11] MEDS ORDERED: LIDO/EPI 1% **for epidural** 30 ML SDV ONE (09:37)
--- NOTE | 2018-05-11 10:28 | PDPROPOC ---
Sedation Plan of Care Sedation Plan of Care: vital signs stable, mental status noted, patient educated of risks, benefits, alternatives, patient can tolerate sedation ASA Classification: ASA 3 Planned drugs: fentanyl, midazolam Mallampati Score: Class 4 Mallampati Reference Image: Patient passed 3-3-2 rule?: Yes
--- NOTE | 2018-05-11 10:29 | PDHPUP ---
History & Physical Update H&P update statement: This history and physical update is based on an assessment of the patient which was completed after admission or registration (within 24 hours), but prior to the surgery/procedure. H&P update: H&P reviewed & patient examined (complete heart block), no change in patient's condition since H&P completed
--- NOTE | 2018-05-11 10:33 | PDTEE1 ---
LEXY Cardioversion Procedure Procedure: electrical cardioversion, transesophageal echo Indications: other (atrial flutter) Procedural Details: Pads were placed in anterior-posterior position. ELXY probe was advanced and standard images obtained. There is no evidence of left atrial or left atrial appendage thrombus. Synchronized cardioversion attempt #1: other (250J) Results: normal sinus rhythm Conclusions: successful LEXY cardioversion Patient Problems: Problems Problem Status Onset Heart block AV complete Acute Acute blood loss anemia Acute Acute chest pain Acute CVA (cerebral vascular accident) Acute S/P ventricular septal myectomy Acute ~07/25/17 HTN (hypertension) Chronic 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
[2018-05-11] MEDS ORDERED: ETOMIDATE 40 MG/20 ML INJ ONE (11:42)
--- NOTE | 2018-05-11 12:25 | EPPROC ---
Electrophysiology Procedure Note: PROCEDURE: MRI conditional dual-chamber pacemaker insertion. DATE OF PROCEDURE: 05/11/2018 DEVICE: Implanted is a Biotronk Edora 8 DR-T, serial # [id number]. MRI conditional device. LEADS: The atrial lead is a Solia S 45, serial # [id number]. The ventricular lead is a Solia S 53, serial #[id number]. COMPLICATIONS: None AEROSPACE PROJECT MANAGER: Chau Hart MD INDICATION AND APPROPRIATE USE CRITERIA: The patient has complete heart block. THE PATIENT WILL BE PACEMAKER DEPENDENT POST-OPERATIVELY. PROCEDURE IN DETAIL: After informed consent was obtained and n.p.o. status was confirmed, the region of the left subclavicular fossa was cleaned, prepped and draped in a sterile fashion. Approximately 30 mL of 1% lidocaine was utilized for local anesthesia. The skin was sharply incised with a #10 blade. Electrocautery and local pressure were used for hemostasis. Sharp and blunt dissection was used to form a pacemaker pocket overlying the pectoralis major fascia. An 18-gauge Cook needle was used to gain access to the left subclavian vein x 2. J wires were advanced into the inferior vena cava. A 6-F peel-away sheath was advanced over the lateral wire. Wire and stylet were removed. Ventricular lead was manipulated with care into the RV apex under direct fluoroscopic guidance and screwed into place. Threshold was tested and found to be 0.6 V at 0.4 ms width. R-wave amplitude was measured at 20 mV. Lead impedance was 721 Ohms. The lead was sutured in place with #0 Ethibond. The medial wire was used to place a second peel-away sheath wire and dilator was removed and a second pacer lead was manipulated with care into the right atrial appendage and screwed into place. The threshold was 0.5 V at 0.4 ms width. P-wave amplitude was 4.2 mV, lead impedance was 799 Ohms. The peel away sheath was removed and the leads were sutured in place with a #0 Ethibond. The pocket was thoroughly flushed and checked for bleeding. Hemostasis was established. The antibiotic soaked gauze was removed from the pocket. The atrial lead serial number was checked and placed in the upper pole lead housing of the pulse generator and set screw firmly applied. The procedure was repeated for the RV lead in the lower pole lead housing. The device was placed in the pocket and sutured in place with #0 Ethibond. The skin was closed with a 3- layered 3-0 Vicryl, 2-0 Vicryl and 4-0 Monocryl repair with excellent wound edge opposition and hemostasis documented. The patient returned to the post cath recovery unit in good and stable condition where a stat postoperative chest x-ray and EKG will be obtained. FINAL IMPRESSION: Successful dual-chamber pacemaker insertion without immediate complication. Patient Problems: Problems Problem Status Onset Heart block AV complete Acute Acute blood loss anemia Acute Acute chest pain Acute CVA (cerebral vascular accident) Acute S/P ventricular septal myectomy Acute ~07/25/17 HTN (hypertension) Chronic 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
[2018-05-11] MEDS ORDERED: METOPROLOL TARTRATE 5 MG/5 ML INJ ONE (12:49)
--- NOTE | 2018-05-11 14:48 | ASMTCASEMG ---
Living Arrangements What is your living Answers: With Spouse arrangement? Who do you live with? Type Of Residence What kind of residence do Answers: Apartment you live in? Discharge Plan Comments Coordination Status Comments Notes: Patient is a 72yo female who was sent to the ER by her PCP for bradycardia. Patient was admitted for a complete heart block, hypertension, hypertrophic obstructive cardiomyopathy, diabetes type2. hypertension, and cerebrovascular accident. Patient will need a cardiology procedure. OT has been ordered. Patient is icelandic speaking only. D/C plan TBD. CM will follow. Date Signed: 05/11/2018 02:47 PM Electronically Signed By:Helena Smart LCSW
[2018-05-11] MEDS ORDERED: oxyCODONE IR 5 MG TAB PO PRN (15:17)
[2018-05-11] MEDS ORDERED: hydrALAZINE 20 MG/ML VIAL IVP PRN ×2 (16:01→19:33)
[2018-05-11] MEDS: CARVEDILOL 25 MG TAB PO SCH (17:44)
[2018-05-11] MEDS: metFORMIN HCL 500 MG TAB PO SCH (17:44)
--- NOTE | 2018-05-11 19:33 | HOSPPROG ---
Hospitalist Progress Note Assessment/Plan: Assessment: 72-year-old female presents with acute complete heart block requiring permanent pacemaker placement Plan: 1. Complete heart block. Patient presented with symptomatic heart block, noted to be 3rd degree on EKG, personally interpreted -she required emergent placement of pacer pads, monitoring in the step-down unit , and urgent permanent pacemaker placement on 05/11 -evaluation of the patient following her pacemaker procedure demonstrates that she is having very minimal pain, she tolerated the procedure well -will be monitored on telemetry overnight, will have permanent pacemaker check in a.m. -pain management with oxycodone immediate release as needed 2. Hypertension. Acute worsening of chronic condition, she has been taken off of her constantino blocking agents and started on Norvasc 10 mg nightly as well as continued on her home dosage of lisinopril 20 mg daily -she is at risk for postprocedural bleeding if systolic blood pressures greater than 160, dose with IV hydralazine 5-10 mg as needed -will increase her lisinopril to 40 mg tomorrow a.m. If she remains hypertensive 3. History of CVA. Head CT demonstrating right cerebellar encephalomalacia but no acute infarct Diet. Regular Prophylaxis. High risk patient, SCDs, avoid pharm given recent procedure Code. Full Disposition. Anticipated discharge is 05/12, pending stabilization of above. Subjective: Patient currently does not have pain in her chest Objective: Vital Signs Temp Pulse Resp BP Pulse Ox 37.0 C 57 L 16 180/55 H 97 05/11/18 10:00 05/11/18 17:44 05/11/18 16:00 05/11/18 17:44 05/11/18 16:00 Laboratory Results 05/11/18 04:00 05/11/18 04:00 05/10/18 05/11/18 05/12/18 05:59 05:59 05:59 Intake Total 300 200 Balance 300 200 PT 14.9 SEC (12.0-15.0) 05/11/18 04:00 INR 1.15 (0.83-1.16) 05/11/18 04:00 - Pending Discharge Pending Discharge Within 24 Hours: Yes Pending Discharge Date: 05/12/18 Pending Discharge Time: 11:00 - Physical Exam Constitutional: no apparent distress, appears nourished, not in pain, No uncomfortable Cardiovascular: regular rate and rhythym, no murmur, rub, or gallop, No irregularly irregular, No edema Respiratory: no respiratory distress, no rales or rhonchi, clear to auscultation Gastrointestinal: normoactive bowel sounds, soft, non-tender abdomen, no palpable masses Skin: other (Mild tenderness over the pacer site, no surrounding erythema, no induration, no soft tissue edema) Neurologic: AAOx3 Psychiatric: interacting appropriately, not anxious, not encephalopathic, thought process linear ICD10 Worksheet Patient Problems: Problems Problem Status Onset CVA (cerebral vascular accident) Acute Heart block AV complete Acute HTN (hypertension) Chronic Acute blood loss anemia Acute S/P ventricular septal myectomy Acute ~07/25/17 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 Acute chest pain Acute
[2018-05-11] MEDS: ATORVASTATIN CALCIUM 10 MG TAB PO SCH (21:49)
[2018-05-12] MEDS: ACETAMINOPHEN 325 MG TAB PO PRN ×2 (07:39→12:46)
[2018-05-12] MEDS: LISINOPRIL 20 MG TAB PO SCH (07:39)
[2018-05-12] MEDS: metFORMIN HCL 500 MG TAB PO SCH (07:39)
[2018-05-12] MEDS: CARVEDILOL 25 MG TAB PO SCH (07:40)
[2018-05-12] MEDS: INSULIN LISPRO 100 UNIT/ML SC SCH ×2 (12:47→12:48)
[2018-05-12 14:33] VITALS: BP 116/66
--- NOTE | 2018-05-12 14:50 | ASDISCHSUM ---
Discharge Information Plan Status:Home with No Needs Medically Cleared to Leave:05/12/2018 Discharge Date:05/12/2018 CM D/C Disposition:Home, Routine, Self-Care ADT D/C Disposition:Home, Routine, Self-Care Projected Discharge Date:05/12/2018 12:00 AM Transportation at D/C: Discharge Delay Reason: Follow-Up Date:05/12/2018 12:00 AM Discharge Slot:2 - 12:01 pm - 18:00 pm Final Diagnosis: Placement Information Patient Contact Information Contact Name:ANNALEE Relationship: Address:[address] Work Phone: City:[place] Alternate Phone: [facility]/Zip Code:[place] [address] Email: Financial Information Financial Class:Medicare Advantage Plans Primary Plan Desc:[facility] [employer] PLANS Primary Plan Number:[id number] Secondary Plan Desc: Secondary Plan Number: Assessment Information [facility] Initial CM Assessment Living Arrangements What is your living Answers: With Spouse arrangement? Who do you live with? Type Of Residence What kind of residence do Answers: Apartment you live in? Discharge Plan Comments Coordination Status Comments Notes: Patient is a 72yo female who was sent to the ER by her PCP for bradycardia. Patient was admitted for a complete heart block, hypertension, hypertrophic obstructive cardiomyopathy, diabetes type2. hypertension, and cerebrovascular accident. Patient will need a cardiology procedure. OT has been ordered. Patient is irish speaking only. D/C plan TBD. CM will follow. Date Signed: 05/11/2018 02:47 PM Electronically Signed By:Helena Smart LCSW Intervention Information
--- NOTE | 2018-05-12 16:23 | PDCARPN ---
Cardiology Progress Note Chief Complaint: Third degree heart block Assessment/Plan: Assessment: Latoya is a 72-year-old female with a history of HOCM s/p septal myotomy performed 07/26/[address] Adam. This surgery was complicated by stroke. Edmar presented to the ED with ongoing fatigue and elevated blood pressure in the 200 mmHg systolic range. Her EKG showed complete heart block and she had an urgent pacemaker inserted. The patient tolerated the procedure well. She has minimal pain at the pacemaker site. Her hypertension is being treated with Norvasc 10mg as well as Lisinopril 20mg. We have monitored the patient post pacer insertion and she appears to be doing well. Her pacer site does not show any signs of infection at this time. Plan: The patient had some concern about going home and have the pacer pocket get infected. I informed her that the risk of infection is higher at the hospital. The patient's blood pressure has been stable. Her pain is being well managed. We will plan to discharge the patient home. The patient has been instructed to keep her left arm below her shoulder. She knows to present to the emergency department immediately if she develops chest pain/pressure/tightness, fever, shortness of breath, lightheadedness, near syncope, or syncope. 05/12/18 16:23 05/12/18 16:34 Subjective: The patient is doing well. Her pacer site looks good with no signs of infection. Reviewed/Discussed With: family, hospitalist, multidisciplinary team Time Spent with Patient: greater than 35 minutes Time Spent with Patient: Greater than 35 minutes spent on this patients care, greater than 50% of time spent counseling, educating, and coordinating care regarding the above mentioned plan. Objective: Vital Signs (8 Hrs) Temp Pulse Resp BP Pulse Ox 05/12/18 14:31 36.6 C 62 16 116/66 93 05/12/18 12:39 59 L 93 05/12/18 12:00 37.1 C 56 L 19 113/36 L 94 Intake/Output (24 Hrs) 05/11/18 05/12/18 05/13/18 05:59 05:59 05:59 Intake Total 300 600 480 Output Total 0 Balance 300 600 480 Intake: Oral (ml) 300 400 480 IV Infused (ml) 200 Ns 1,000 ml @ As Directed 200 IV ONCALL ONE Rx#: [id number] Output: Emesis (ml) 0 Other: Weight 76.204 kg Intake Quantity Yes Sufficient Number of Voids Toilet 2 3 2 Result Diagrams: 05/11/18 04:00 05/11/18 04:00 EKG: I interpreted the patient's EKG, she is AV sequential paced. Telemetry: I reviewed the raw data from the patient's rhythm strips. She has AV sequential rhythm. Normal pacing function. No significant tachy or carlos dysrhythmia present on the monitoring system. - Physical Exam Constitutional: WDWN, healthy appearing Eyes: PERRL, EOMI Ears, Nose, Mouth, Throat: moist mucous membranes Cardiovascular: regular rate and rhythm, systolic murmur Peripheral Pulses: 2+: carotid (R), carotid (L), femoral (R), femoral (L), dorsalis-pedis (R), dorsalis-pedis (L) Respiratory: clear to auscultate bilat, no crackles, no wheezes Gastrointestinal: normoactive bowel sounds Genitourinary: no suprapubic tenderness Skin: no rashes, warm Musculoskeletal: no muscular tenderness Neurologic: AAOx3 Psychiatric: cooperative, interactive, following commands - . Pending Discharge Within 24 Hours: Yes ICD10 Worksheet Patient Problems: Problems Problem Status Onset Acute blood loss anemia Acute Acute chest pain Acute CVA (cerebral vascular accident) Acute Heart block AV complete Acute S/P ventricular septal myectomy Acute ~07/25/17 HTN (hypertension) Chronic 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
--- NOTE | 2018-05-12 18:56 | PDDCSUM ---
Discharge Summary Discharge Summary: DISCHARGE SUMMARY FOLLOW-UP ITEMS: Reassess blood pressure at cardiology office DATE OF ADMISSION: 05/10/2018 DATE OF DISCHARGE: 05/12/2018 DISCHARGE DIAGNOSES: 1. Acute complete heart block 2. Chronic hypertension 3. Hypertrophic obstructive cardiomyopathy CONSULTATIONS: Cardiology PROCEDURES / IMAGING: Permanent pacemaker placement on 05/11/2018 CHIEF COMPLAINT: Acute fatigue SUBJECTIVE: Patient continues to experience some fatigue but she feels safe ambulating PHYSICAL EXAM ON DISCHARGE: Systolic blood pressure 130, heart rate 60, afebrile overnight, satting well on room air, there is very mild medial skin irritation adjacent to the pacemaker bandage, seemingly confluent with the bandage adhesive, and not indurated or ecchymotic, lungs are clear to auscultation bilaterally, heart rhythm is regular LABS ON DISCHARGE: Fasting blood glucose 128 HOSPITAL COURSE BY PROBLEM: The patient presented with symptomatic complete heart block and she was taken emergently for pacemaker placement. She also experien, in the setting of her heart block. We initiated high-dose amlodipine as well as continuing her home dosage of lisinopril. After the pacemaker was placed, Dr. Chau Hart initiated high-dose carvedilol given her underlying hypertrophic obstructive cardiomyopathy. Consequently, we reduced the dosage of the amlodipine down to 5 mg daily, continue the lisinopril, and her systolic blood pressures ranging between 120 and 130 at time of discharge. Patient did not demonstrate any evidence of infection at the pacemaker site, and the patient was able to safely ambulate and perform ADLs. The patient will follow up at [facility] next week for a pacemaker check and we have advised her to contact the office sooner if she experiences any evidence of skin changes at the pacemaker site. The patient was requesting use of only Tylenol for pain at time of discharge. DISCHARGE MEDICATIONS: Please see official discharge medication reconciliation sheet in chart , amlodipine 5 mg daily, Coreg 25 mg twice daily, discontinuation of metoprolol, continuation of other home medications. DISCHARGE INSTRUCTIONS: Please follow up with [facility] next week. TIME SPENT: Greater than 30 minutes were spent on direct patient care, as well as discharge planning and preparation.
== END 2018-05-12 15:47 | disposition home or self-care (01) | DRG 243 ==
LOC: EDUNIT# → F2N 17:22
PROVIDERS: ADMIT Student in an Organized Health Care Education/Training Program; ATTEND Internal Medicine
PROC: 0JH606Z Insertion of Pacemaker, Dual Chamber into Chest Subcutaneous Tissue and Fascia, Open Approach (ICD-10-PCS; principal; 2018-05-11)
PROC: 02HK3JZ Insertion of Pacemaker Lead into Right Ventricle, Percutaneous Approach (ICD-10-PCS; principal; 2018-05-11)
PROC: 02H63JZ Insertion of Pacemaker Lead into Right Atrium, Percutaneous Approach (ICD-10-PCS; principal; 2018-05-11)
DX: I44.2 Atrioventricular block, complete (principal); I42.1 Obstructive hypertrophic cardiomyopathy; I10 Essential (primary) hypertension
CPT/HCPCS: 84484-PO; 97165-GO; A4649; C1785; C1898; G8987-GO-CI; G8988-GO-CI; G8989-GO-CI; J0360; J0461; J0690; J1815; J2250; J2405; J3010; Q9967